=== PATIENT | female | born 1955 | race Caucasian/White ===

== ENCOUNTER 2019-10-26 13:26 | Outpatient (REF) | payer SELFPAY ==
[2019-10-26 15:37] LABS: Estmated Average Glucose 114; Hemoglobin A1C 5.6 % (4.0-6.0)
[2019-10-26 17:54] LABS: Chol HDL Ratio 4.34 mg/dL (0.0-4.40); Cholesterol 243 mg/dL (0-200); HDL Cholesterol 56 mg/dL (60-100); LDL Cholesterol Calculated 159 mg/dL (50-129); LDL HDL Ratio 2.84 RATIO (0.00-3.22); Triglycerides 138 mg/dL (0-150)
[2019-10-26 17:55] LABS: Alanine Aminotransferase 22 U/L (0-33); Albumin Level 3.7 g/dL (3.5-5.2); Alkaline Phosphatase 90 IU/L (35-105); Aspartate Amino Transferase 19 U/L (0-32); Blood Urea Nitrogen 16 mg/dL (8-23); Calcium 9.7 mg/dL (8.5-10.5); Carbon Dioxide 26 mmol/L (22-29); Chloride 101 mmol/L (98-107); Globulin 2.9 g/dL (1.3-4.6); Glomerular Filtration Rate 84.2 mL/min (90-130); Glucose 76 mg/dL (65-115); Sodium 139 mmol/L (136-145); Total Bilirubin 0.3 mg/dL (0.15-1.2); Total Protein 6.6 g/dL (6.6-8.7)
== END 2019-10-26 13:27 | disposition home or self-care (01) ==
LOC: LAB 13:26
PROVIDERS: Family Provider Nurse Practitioner; PCP Nurse Practitioner
DX: E78.5 Hyperlipidemia, unspecified (principal)
CPT/HCPCS: 80053; 80061; 83036

== ENCOUNTER → 2020-05-25 11:25 | Outpatient (BNVA) | payer SELFPAY | PROVIDERS: Family Provider Nurse Practitioner; PCP Nurse Practitioner; Visit Provider Nurse Practitioner | DX: E78.2 Mixed hyperlipidemia (principal); K21.9 Gastro-esophageal reflux disease without esophagitis; I10 Essential (primary) hypertension; N39.46 Mixed incontinence | CPT/HCPCS: 80053; 80061 ==

== ENCOUNTER → 2020-09-12 09:07 | Outpatient (BNVA) | payer SELFPAY | PROVIDERS: Family Provider Nurse Practitioner; PCP Nurse Practitioner; Visit Provider Nurse Practitioner | DX: F41.8 Other specified anxiety disorders (principal); I10 Essential (primary) hypertension; K21.9 Gastro-esophageal reflux disease without esophagitis; E78.2 Mixed hyperlipidemia | CPT/HCPCS: 80053; 84439; 84443; 84481 ==

== ENCOUNTER 2021-03-16 07:18 | Inpatient (IN) | payer MEDICARE, SELFPAY ==
[2021-03-16] VITALS (38 sets, daily range): BP systolic 85–132; BP diastolic 56–89; PULSE 85–144; RESP 13–28; TEMP 36.6–37.2; O2SAT 78–94; BMI 29.9
--- NOTE | 2021-03-16 07:27 | ED_ITS ---
HPI - COVID General: Chief Complaint: COVID symptoms Stated Complaint: COVID +; RESP DISTRESS Time Seen by Provider: 03/16/21 07:26 History of Present Illness: HPI Narrative: 66-year-old female presents emergency room short of breath. She tested positive for Covid 5 days ago at an outside facility. She had symptoms for 2 to 3 days prior to that. She presents today having worsened markedly overnight and now is severely short of breath on arrival in triage she has oxygen sats in the upper 70s on room air and is tachypneic. She has had a moderately productive cough and loose stools. She denies any chest pain. Unfortunately the outside facility is not able to provide us with documentation of her Covid positive status so testing was repeated at this visit. complaint: known COVID positive Prior covid testing: yes, results known COVID 19 common symptoms: positive fever(s), chills, cough, productive cough, dyspnea, fatigue, body aches, throat pain, nasal congestion, nausea and diarrhea COVID 19 other sytmptoms: positive requiring oxygen; negative chest pain Onset (ago): day(s) Severity: severe and rapidly worsening Treatment prior to arrival: none COVID Results: SARS-CoV-2 Antigen (Rapid) Negative (Negative) 03/16/21 08:35 03/16/21 SARS-CoV-2 RNA (RT-PCR) Detected (NOT DETECTED) A 03/16/21 08:35 03/16/21 Review of Systems Const: Reports: fever(s), chills, body aches and fatigue ENMT: Reports: throat pain and nasal congestion Card: Denies: chest pain, edema, dyspnea on exertion or orthopnea Resp: Reports: dyspnea and productive cough GI: Reports: nausea and diarrhea : Denies: flank pain, difficulty voiding, dysuria, urinary frequency or urinary urgency Skin/Breast: Denies: rash or pruritus PFS ED PFSH: Medical History (Updated 03/25/21 @ 00:01 by ) Acute respiratory failure with hypoxia ARDS survivor Enlarged thyroid GERD (gastroesophageal reflux disease) Iron deficiency Mixed hyperlipidemia Mixed stress and urge incontinence Obesity (BMI 30-39.9) Situational mixed anxiety and depressive disorder Surgical History History of section History of cholecystectomy History of endometrial ablation 2010 History of knee surgery bilateral scope History of laminectomy Lumbar Family History Other Cancer Heart disease Social History Smoking and tobacco status: never smoked Second hand smoke exposure: No Smoking risk assessment/counseling performed?: No Alcohol intake: never Desire information about alcohol rehabilitation?: No Counseling given: No Desire information about substance/drug rehabilitation?: No Counseling given: No Adopted: No Caregiver/support person: No Lives independently: Yes Household members: spouse Housing: House Marital status: service: No History of recent travel: No Current gender identity: Female Physical Exam Const: GENERAL APPEARANCE: cooperative ORIENTATION/CONSCIOUSNESS: Yes awake, Yes oriented to person, Yes oriented to place and Yes oriented to time HENMT: COMMON NORMALS: normocephalic, atraumatic, hearing grossly normal bilaterally and external ears normal HEAD & SCALP: normocephalic and atraumatic EXTERNAL EAR: Yes external ears normal Neck/C-Spine: COMMON NORMALS: no JVD Resp: AUSCULTATION: rales and wheezes Cardio: COMMON NORMALS: no JVD, regular rate, regular rhythm and No murmurs present (Cardio) RATE: regular rate RHYTHM: regular rhythm GI: COMMON NORMALS: Soft to palpation and No hepatosplenomegaly present AUSCULTATION: Yes normoactive bowel sounds PALPATION: Yes Soft to palpation, No Tenderness to palpation present (GI), No Guarding due to palpation present (GI) and Yes No hepatosplenomegaly present Extremity: COMMON NORMALS: normal to inspection, capillary refill normal, no clubbing, cyanosis or edema, no calf tenderness and no pedal edema Neuro: SENSORIUM/ORIENTATION: Yes oriented to person, Yes oriented to place and Yes oriented to time Skin: COMMON NORMALS: no rashes or lesions noted GENERAL SKIN EXAM: no rashes or lesions noted Course Vital Signs: Vital signs: Vital Signs Temperature 98.5 F 03/24/21 13:32 Pulse Rate 77 03/24/21 13:32 Respiratory Rate 14 03/24/21 13:32 Blood Pressure 116/77 03/24/21 13:32 Pulse Oximetry 93 03/24/21 13:32 MDM - COVID MDM Narrative: Medical decision making narrative: I do believe the patient has COVID-19 will need to be admitted. Unfortunately we do not have an actual positive test for rapid was negative as would be expected her send out is going to be pending discussed with hospitalist will admit. Lab Data: Labs: Lab Results 03/16/21 03/16/21 03/16/21 Range/Units 07:29 07:30 07:30 WBC 4.7 (4.0-10.0) 10^3/ uL RBC 4.32 (4.1-5.3) 10^6/u L Hgb 13.2 (11.5-15.3) g/dL Hct 38.3 (37.0-47.0) % MCV 88.7 (81-99) fL MCH 30.6 (28.0-34.0) pg MCHC 34.5 (30.0-36.0) g/dL RDW 12.9 (12.1-15.1) % Plt Count 253 (130-400) 10^3/c mm MPV 11.2 H (7.4-10.4) fL Lymph % (Auto) Not Reportable Crisp % (Auto) Not Reportable Lymph # (Auto) Not Reportable Crisp # (Auto) Not Reportable Total Counted 100 (0-100) Atypical Lymphs % 0.0 (0-5) % Absolute Neutrophi ls 3.9 (1.4-6.5) 10^3/c mm Segmented Neutroph ils 32 % Abs Segm Neuts (Ma n) 1.5 L (1.6-7.1) 10/cmm Band Neutrophils 50.0 % Abs Band Neuts (Ma n) 2.4 H (0.0-1.2) 10^3/c mm Absolute Lymphocyt es 0.7 L (1.2-3.4) 10^3/c mm Lymphocytes (Manua l) 15 % Monocytes (Manual) 3.0 % Absolute Monocytes 0.1 (0.1-0.6) 10^3/c mm Eosinophils (Manua l) 0 % Absolute Eosinophi ls 0.0 (0.0-0.7) 10^3/c mm Basophils (Manual) 0.0 % Absolute Basophils 0.0 (0.0-0.2) 10^3/c mm Platelet Estimate Normal (Normal) PT (12.1-14.9) SECO NDS INR (0.8-1.2) D-Dimer (0-0.59) ug/mIFE U Specimen Type Arterial Sample Site Radial, left ABG pH 7.39 (7.35-7.45) ABG pCO2 28.9 L (35-45) mmHg ABG pO2 62.9 L (80.0-100.0) mmH g ABG HCO3 17.4 L (22-26) mmol/L ABG O2 Saturation 91.3 ABG Base Excess -6.3 L (-2.0-2.0) mmol/ L Gurjit Test Pos A-a O2 Gradient 79.1 H (5-10) mmHg Hematocrit 41.4 (37-47) % Hgb O2 Saturation 90.0 L (95-100) % Carboxyhemoglobin 0.6 (0.4-20.1) %THgb Methemoglobin 0.8 (0.4-1.5) % Total Hemoglobin 13.5 (12-16) g/dL Sodium 128.0 L 128 L (131-143) mmol/L Potassium 3.5 3.7 (3.5-5.0) mmol/L Glucose 84.0 79 (70-115) mg/dL Ionized Calcium 1.1 (1.1-1.4) mmol/L O2 Delivery Device Nrb O2 Liters/Min 15.0 % FiO2 100.0 % Operations Lieutenant ID Ed Chloride 89 L (98-107) mmol/L Carbon Dioxide 17 L (22-29) mmol/L Anion Gap 25.7 H (5-19) BUN 33 H (8-23) mg/dL Creatinine 1.5 H (0.5-0.9) mg/dL GFR Calculation 34.7 L (90-130) mL/min Calculated Osmolal ity 272 L (285-295) mOsm/k g Lactic Acid (0.5-2.2) mmol/L Calcium 8.2 L (8.5-10.5) mg/dL Total Bilirubin 0.5 (0.15-1.2) mg/dL AST 39 H (0-32) U/L ALT 34 H (0-33) U/L Alkaline Phosphata se 110 H (35-105) IU/L Lactate Dehydrogen ase (135-214) U/L Creatine Kinase (26-192) U/L C-Reactive Protein 350.0 H (0.0-4.9) mg/L Total Protein 6.6 (6.6-8.7) g/dL Albumin 3.1 L (3.5-5.2) g/dL Globulin 3.5 (1.3-4.6) g/dL Interleukin 6 (<5.00) pg/mL Procalcitonin (0-0.5) ng/mL Nasal/Oral COVID-1 9 PCR SARS-CoV-2 RNA (RT -PCR) (NOT DETECTED) SARS-CoV-2 Ag (Rap id) (Negative) 03/16/21 03/16/21 03/16/21 Range/Units 07:30 07:30 07:30 WBC (4.0-10.0) 10^3/ uL RBC (4.1-5.3) 10^6/u L Hgb (11.5-15.3) g/dL Hct (37.0-47.0) % MCV (81-99) fL MCH (28.0-34.0) pg MCHC (30.0-36.0) g/dL RDW (12.1-15.1) % Plt Count (130-400) 10^3/c mm MPV (7.4-10.4) fL Lymph % (Auto) Crisp % (Auto) Lymph # (Auto) Crisp # (Auto) Total Counted (0-100) Atypical Lymphs % (0-5) % Absolute Neutrophi ls (1.4-6.5) 10^3/c mm Segmented Neutroph ils % Abs Segm Neuts (Ma n) (1.6-7.1) 10/cmm Band Neutrophils % Abs Band Neuts (Ma n) (0.0-1.2) 10^3/c mm Absolute Lymphocyt es (1.2-3.4) 10^3/c mm Lymphocytes (Manua l) % Monocytes (Manual) % Absolute Monocytes (0.1-0.6) 10^3/c mm Eosinophils (Manua l) % Absolute Eosinophi ls (0.0-0.7) 10^3/c mm Basophils (Manual) % Absolute Basophils (0.0-0.2) 10^3/c mm Platelet Estimate (Normal) PT (12.1-14.9) SECO NDS INR (0.8-1.2) D-Dimer (0-0.59) ug/mIFE U Specimen Type Sample Site ABG pH (7.35-7.45) ABG pCO2 (35-45) mmHg ABG pO2 (80.0-100.0) mmH g ABG HCO3 (22-26) mmol/L ABG O2 Saturation ABG Base Excess (-2.0-2.0) mmol/ L Gurjit Test A-a O2 Gradient (5-10) mmHg Hematocrit (37-47) % Hgb O2 Saturation (95-100) % Carboxyhemoglobin (0.4-20.1) %THgb Methemoglobin (0.4-1.5) % Total Hemoglobin (12-16) g/dL Sodium (131-143) mmol/L Potassium (3.5-5.0) mmol/L Glucose (70-115) mg/dL Ionized Calcium (1.1-1.4) mmol/L O2 Delivery Device O2 Liters/Min % FiO2 % Operations Lieutenant ID Chloride (98-107) mmol/L Carbon Dioxide (22-29) mmol/L Anion Gap (5-19) BUN (8-23) mg/dL Creatinine (0.5-0.9) mg/dL GFR Calculation (90-130) mL/min Calculated Osmolal ity (285-295) mOsm/k g Lactic Acid 3.4 H (0.5-2.2) mmol/L Calcium (8.5-10.5) mg/dL Total Bilirubin (0.15-1.2) mg/dL AST (0-32) U/L ALT (0-33) U/L Alkaline Phosphata se (35-105) IU/L Lactate Dehydrogen ase 351 H (135-214) U/L Creatine Kinase 176 (26-192) U/L C-Reactive Protein (0.0-4.9) mg/L Total Protein (6.6-8.7) g/dL Albumin (3.5-5.2) g/dL Globulin (1.3-4.6) g/dL Interleukin 6 74960.50 H (<5.00) pg/mL Procalcitonin (0-0.5) ng/mL Nasal/Oral COVID-1 9 PCR SARS-CoV-2 RNA (RT -PCR) (NOT DETECTED) SARS-CoV-2 Ag (Rap id) (Negative) 03/16/21 03/16/21 03/16/21 Range/Units 07:30 08:07 08:35 WBC (4.0-10.0) 10^3/ uL RBC (4.1-5.3) 10^6/u L Hgb (11.5-15.3) g/dL Hct (37.0-47.0) % MCV (81-99) fL MCH (28.0-34.0) pg MCHC (30.0-36.0) g/dL RDW (12.1-15.1) % Plt Count (130-400) 10^3/c mm MPV (7.4-10.4) fL Lymph % (Auto) Crisp % (Auto) Lymph # (Auto) Crisp # (Auto) Total Counted (0-100) Atypical Lymphs % (0-5) % Absolute Neutrophi ls (1.4-6.5) 10^3/c mm Segmented Neutroph ils % Abs Segm Neuts (Ma n) (1.6-7.1) 10/cmm Band Neutrophils % Abs Band Neuts (Ma n) (0.0-1.2) 10^3/c mm Absolute Lymphocyt es (1.2-3.4) 10^3/c mm Lymphocytes (Manua l) % Monocytes (Manual) % Absolute Monocytes (0.1-0.6) 10^3/c mm Eosinophils (Manua l) % Absolute Eosinophi ls (0.0-0.7) 10^3/c mm Basophils (Manual) % Absolute Basophils (0.0-0.2) 10^3/c mm Platelet Estimate (Normal) PT 14.40 (12.1-14.9) SECO NDS INR 1.09 (0.8-1.2) D-Dimer 1.71 H (0-0.59) ug/mIFE U Specimen Type Sample Site ABG pH (7.35-7.45) ABG pCO2 (35-45) mmHg ABG pO2 (80.0-100.0) mmH g ABG HCO3 (22-26) mmol/L ABG O2 Saturation ABG Base Excess (-2.0-2.0) mmol/ L Gurjit Test A-a O2 Gradient (5-10) mmHg Hematocrit (37-47) % Hgb O2 Saturation (95-100) % Carboxyhemoglobin (0.4-20.1) %THgb Methemoglobin (0.4-1.5) % Total Hemoglobin (12-16) g/dL Sodium (131-143) mmol/L Potassium (3.5-5.0) mmol/L Glucose (70-115) mg/dL Ionized Calcium (1.1-1.4) mmol/L O2 Delivery Device O2 Liters/Min % FiO2 % Operations Lieutenant ID Chloride (98-107) mmol/L Carbon Dioxide (22-29) mmol/L Anion Gap (5-19) BUN (8-23) mg/dL Creatinine (0.5-0.9) mg/dL GFR Calculation (90-130) mL/min Calculated Osmolal ity (285-295) mOsm/k g Lactic Acid (0.5-2.2) mmol/L Calcium (8.5-10.5) mg/dL Total Bilirubin (0.15-1.2) mg/dL AST (0-32) U/L ALT (0-33) U/L Alkaline Phosphata se (35-105) IU/L Lactate Dehydrogen ase (135-214) U/L Creatine Kinase (26-192) U/L C-Reactive Protein (0.0-4.9) mg/L Total Protein (6.6-8.7) g/dL Albumin (3.5-5.2) g/dL Globulin (1.3-4.6) g/dL Interleukin 6 (<5.00) pg/mL Procalcitonin > 100.00 H (0-0.5) ng/mL Nasal/Oral COVID-1 9 PCR Cancelled SARS-CoV-2 RNA (RT -PCR) (NOT DETECTED) SARS-CoV-2 Ag (Rap id) (Negative) 03/16/21 03/16/21 Range/Units 08:35 08:35 WBC (4.0-10.0) 10^3/ uL RBC (4.1-5.3) 10^6/u L Hgb (11.5-15.3) g/dL Hct (37.0-47.0) % MCV (81-99) fL MCH (28.0-34.0) pg MCHC (30.0-36.0) g/dL RDW (12.1-15.1) % Plt Count (130-400) 10^3/c mm MPV (7.4-10.4) fL Lymph % (Auto) Crisp % (Auto) Lymph # (Auto) Crisp # (Auto) Total Counted (0-100) Atypical Lymphs % (0-5) % Absolute Neutrophi ls (1.4-6.5) 10^3/c mm Segmented Neutroph ils % Abs Segm Neuts (Ma n) (1.6-7.1) 10/cmm Band Neutrophils % Abs Band Neuts (Ma n) (0.0-1.2) 10^3/c mm Absolute Lymphocyt es (1.2-3.4) 10^3/c mm Lymphocytes (Manua l) % Monocytes (Manual) % Absolute Monocytes (0.1-0.6) 10^3/c mm Eosinophils (Manua l) % Absolute Eosinophi ls (0.0-0.7) 10^3/c mm Basophils (Manual) % Absolute Basophils (0.0-0.2) 10^3/c mm Platelet Estimate (Normal) PT (12.1-14.9) SECO NDS INR (0.8-1.2) D-Dimer (0-0.59) ug/mIFE U Specimen Type Sample Site ABG pH (7.35-7.45) ABG pCO2 (35-45) mmHg ABG pO2 (80.0-100.0) mmH g ABG HCO3 (22-26) mmol/L ABG O2 Saturation ABG Base Excess (-2.0-2.0) mmol/ L Gurjit Test A-a O2 Gradient (5-10) mmHg Hematocrit (37-47) % Hgb O2 Saturation (95-100) % Carboxyhemoglobin (0.4-20.1) %THgb Methemoglobin (0.4-1.5) % Total Hemoglobin (12-16) g/dL Sodium (131-143) mmol/L Potassium (3.5-5.0) mmol/L Glucose (70-115) mg/dL Ionized Calcium (1.1-1.4) mmol/L O2 Delivery Device O2 Liters/Min % FiO2 % Operations Lieutenant ID Chloride (98-107) mmol/L Carbon Dioxide (22-29) mmol/L Anion Gap (5-19) BUN (8-23) mg/dL Creatinine (0.5-0.9) mg/dL GFR Calculation (90-130) mL/min Calculated Osmolal ity (285-295) mOsm/k g Lactic Acid (0.5-2.2) mmol/L Calcium (8.5-10.5) mg/dL Total Bilirubin (0.15-1.2) mg/dL AST (0-32) U/L ALT (0-33) U/L Alkaline Phosphata se (35-105) IU/L Lactate Dehydrogen ase (135-214) U/L Creatine Kinase (26-192) U/L C-Reactive Protein (0.0-4.9) mg/L Total Protein (6.6-8.7) g/dL Albumin (3.5-5.2) g/dL Globulin (1.3-4.6) g/dL Interleukin 6 (<5.00) pg/mL Procalcitonin (0-0.5) ng/mL Nasal/Oral COVID-1 9 PCR SARS-CoV-2 RNA (RT -PCR) Detected A (NOT DETECTED) SARS-CoV-2 Ag (Rap id) Negative (Negative) COVID Results: SARS-CoV-2 Antigen (Rapid) Negative (Negative) 03/16/21 08:35 03/16/21 SARS-CoV-2 RNA (RT-PCR) Detected (NOT DETECTED) A 03/16/21 08:35 03/16/21 Discharge Plan Discharge Patient Disposition: Admitted As Inpatient Admit Provider: Justin Christopher Clinical Impression: Pneumonia due to 2019-nCoV, Acute respiratory failure with hypoxia, Hyponatremia Condition: Stable Coding Level of Care Code ED Mechanic for g Fwd Exam Comprehensive
[2021-03-16] MEDS: dexamethasone 10 mg/mL INJ IVP (07:30)
--- NOTE | 2021-03-16 07:30 | XRR_ITS ---
PROCEDURE INFORMATION: Exam: XR Chest Exam date and time: 03/16/2021 7:30 AM Age: 66 years old Clinical indication: Cough; Additional info: Cough hypoxia TECHNIQUE: Imaging protocol: XR of the chest. Views: 1 view. COMPARISON: CR Chest 2 views* [id number] 04/04/2015 2:01 PM FINDINGS: Lungs: Extensive patchy and confluent areas of consolidation throughout both lungs, greatest involvement at the mid lungs. Relative sparing of the apices and lung bases. Pleural spaces: No pleural effusion or pneumothorax. Heart/Mediastinum: Unremarkable. No cardiomegaly. Bones/joints: Unremarkable. XR/XR chest 1V portable [id number] IMPRESSION: Severe bilateral multifocal pneumonia.
--- NOTE | 2021-03-16 07:31 | ECG_ITS ---
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 Measurements Intervals Roulette Rate: 82 P: 62 MA: 138 QRS: 17 QRSD: 97 T: 47 QT: 385 QTc: 452 Interpretive Statements SINUS RHYTHM No previous ECG available for comparison Electronically Signed On 03-17-2021 9:37:51 CDT by Chauncey Emery M.D. [email or web address]
[2021-03-16 07:39] LABS: ABG PCO2 28.9 mmHg (35-45); ABG PH Result 7.39 (7.35-7.45); Arterial Blood Gas Hematocrit 41.4 % (37-47); Base Excess ABG -6.3 mmol/L (-2.0-2.0); Blood Gas Allen Test Pos; Blood Gas Sample Type Arterial; Carboxyhemoglobin 0.6 %THgb (0.4-20.1); HCO3 ABG 17.4 mmol/L (22-26); Ionized Calcium Level - ABG 1.1 mmol/L (1.1-1.4); Methemoglobin 0.8 % (0.4-1.5); Oxygen Saturation ABG 91.3; PO2 ABG 62.9 mmHg (80.0-100.0); Potassium Level - ABG 3.5 mmol/L (3.5-5.0); Total Hemoglobin 13.5 g/dL (12-16)
[2021-03-16 07:40] LABS: Alveolar-Arterial Oxygen Gradi 79.1 mmHg (5-10); Blood Gas Operator Identificat ED; Blood Gas Sample Site Radial, left; Oxygen Device NRB
--- NOTE | 2021-03-16 07:57 | CTR_ITS ---
PROCEDURE INFORMATION: Exam: CTA Chest With Contrast Exam date and time: 03/16/2021 7:57 AM Age: 66 years old Clinical indication: Cough and shortness of breath; Additional info: Covid TECHNIQUE: Imaging protocol: Computed tomographic angiography of the chest with contrast. 3D rendering (Not supervised by radiologist): MIP and/or 3D reconstructed images were created by the technologist. Radiation optimization: All CT scans at this facility use at least one of these dose optimization techniques: automated exposure control; mA and/or kV adjustment per patient size (includes targeted exams where dose is matched to clinical indication); or iterative reconstruction. Contrast material: VISIPAQUE 320; Contrast volume: 78 ml; Contrast route: INTRAVENOUS (IV); COMPARISON: CR XR chest 1V portable [id number] 03/16/2021 7:37 AM RADIATION DOSE METRICS: Total DLP (mGy-cm): 545.65 FINDINGS: Pulmonary arteries: No evidence of pulmonary embolism. Aorta: No aortic aneurysm or dissection. Lungs: Extensive confluent consolidation throughout the bilateral lungs, with some relative sparing of the lung bases and periphery. Central airways normal caliber and patent. Pleural spaces: No pleural effusion or pneumothorax. Heart: Unremarkable. No cardiomegaly. No pericardial effusion. Lymph nodes: Scattered enlarged mediastinal nodes measuring up to 14 mm in short axis, likely reactive. Bones/joints: No acute or aggressive osseous lesion. Soft tissues: Unremarkable. Other findings: No acute findings within the included upper abdomen. CT/CT angio chest PE protcl [id number] IMPRESSION: 1. No evidence of pulmonary embolism. 2. Severe multifocal pneumonia. Radiation Dose CTDIVOL = (mGy): DLP = 545.65 (mGy-cm)
[2021-03-16 07:58] LABS: Hematocrit 38.3 % (37.0-47.0); Hemoglobin 13.2 g/dL (11.5-15.3); Mean Corpuscular HGB Conc 34.5 g/dL (30.0-36.0); Mean Corpuscular Hemoglobin 30.6 pg (28.0-34.0); Mean Corpuscular Volume 88.7 fL (81-99); Mean Platelet Volume 11.2 fL (7.4-10.4); Platelet Count 253 10^3/cmm (130-400); Red Blood Count 4.32 10^6/uL (4.1-5.3); Red Cell Distribution Width 12.9 % (12.1-15.1); White Blood Count 4.7 10^3/uL (4.0-10.0)
[2021-03-16] MEDS: remdesivir 200 MG in sodium chloride 0.9% (100 ml) 100 ML 100 MG IV (07:58)
[2021-03-16 08:13] LABS: Alanine Aminotransferase 34 U/L (0-33); Albumin Level 3.1 g/dL (3.5-5.2); Alkaline Phosphatase 110 IU/L (35-105); Anion Gap 25.7 (5-19); Aspartate Amino Transferase 39 U/L (0-32); Blood Urea Nitrogen 33 mg/dL (8-23); Calcium 8.2 mg/dL (8.5-10.5); Carbon Dioxide 17 mmol/L (22-29); Chloride 89 mmol/L (98-107); Globulin 3.5 g/dL (1.3-4.6); Glomerular Filtration Rate 34.7 mL/min (90-130); Glucose 79 mg/dL (65-115); Lactic Sepsis W/Reflex 3.4 mmol/L (0.5-2.2); Osmolality Calculated 272 mOsm/kg (285-295); Potassium 3.7 mmol/L (3.5-5.1); Sodium 128 mmol/L (136-145); Total Bilirubin 0.5 mg/dL (0.15-1.2); Total Protein 6.6 g/dL (6.6-8.7)
[2021-03-16 08:16] LABS: Slide Review Slide Review Perform
[2021-03-16 08:22] LABS: Absolute Segmented Neutrophil 1.5 10/cmm (1.6-7.1); Band Neutrophils Absolute 2.4 10^3/cmm (0.0-1.2); Lymphocytes 15 %; Monocytes Absolute 0.1 10^3/cmm (0.1-0.6); Segmented Neutrophils 32 %; Total Cells Counted 100 (0-100)
[2021-03-16 08:23] LABS: Absolute Neutrophil 3.9 10^3/cmm (1.4-6.5); Eosinophils 0 %; Lymphocytes Absolute 0.7 10^3/cmm (1.2-3.4); Platelet Estimate Normal (Normal)
[2021-03-16 08:28] LABS: Creatine Phosphokinase 176 U/L (26-192); Lactate Dehydrogenase 351 U/L (135-214)
[2021-03-16 08:31] LABS: INR 1.09 (0.8-1.2)
[2021-03-16 08:34] LABS: D Dimer 1.71 ug/mIFEU (0-0.59)
[2021-03-16] MEDS: sodium chloride 0.9% 500 ML 999 ML IV (08:36)
[2021-03-16 09:14] LABS: SARS Covid-2 Antigen Negative (Negative)
[2021-03-16] MEDS: levofloxacin-dextrose 5 % 750 MG/150 ML PREMIX 100 MG IV (09:27)
[2021-03-16 09:32] LABS: Reflex Lactate Order REFLEX LACTIC ORDERD
[2021-03-16] MEDS: iodixanol 320 mg/mL 100mL Btl IV (10:10)
[2021-03-16 11:46] LABS: Lactic Acid level (Lactate) 2.7 mmol/L (0.5-2.2)
--- NOTE | 2021-03-16 12:08 | PM.HP ---
Providers/Chief Complaint Admitting Physician: Justin Christopher Primary Care Provider: ROBE Bailey Chief Complaint: COVID +; RESP DISTRESS History of Present Illness 66-year-old female with a past medical history significant for anxiety, depression,gastroesophageal reflux disease, mixed urinary incontinence,Hypertension, hyperlipidemia, remote tobacco abuse and recent diagnosis of COVID-19 infection who presented to the hospital with respiratory distress.Apparently patient had a COVID-19 test performed 5 days prior at an outside facility which positive.Additional symptoms included fever, chills, nausea and productive. Upon arrival to ER she was noted to have oxygen saturation 70s.Blood pressure 100/61, respiratory rate of 26, heart rate of 89 and temperature 99.0. Laboratory workup showed a WBC of 4.7, hemoglobin 13.2, hematocrit 38.3 and platelet count of 253. Sodium 128, potassium 3.7, chloride 89, bicarb 17, BUN 33 and creatinine of 1.5. Prior creatinine of 0.9 in 2019. Initial lactic acid of 3.4 with a repeat of 2.7. AST of 39, ALT of 34 and alkaline phosphatase of 110. Creatinine kinase of 176. Interleukin 6 in procalcitonin was ordered and pending. Repeat start spoke with a decision was negative however a PCR was sent.Chest x-ray was performed which showed multifocal pneumonia which was also noted on CT angio chest. No evidence of pulmonary embolism. Scattered enlarged mediastinal lymph nodes measuring up to 14 mm were noted. Patient was placed on high-flow nasal cannula.Oxygen saturation improved. In ER she was also started on Remdesivir 200 mg IV x1 with 100mg IV q24hr x 4 days, decadron 10 mg x1, and levaquin 750 mg IV x 1. Patient also was given NS 1L bolus. Review of Systems General: Reports: 10 or more systems reviewed and unremarkable except in HPI and below Medications/Allergies Home Medications Medication Instructions Recorded Confirmed Last Taken Type acetaminophen [Tylenol] 325 mg PO Q6H PRN 11/08/19 03/16/21 Unknown History ibuprofen [IBU] 200 mg PO Q6H PRN 11/08/19 03/16/21 Unknown History atorvastatin 40 mg tablet 40 mg PO DAILY #90 tab 12/27/20 03/16/21 03/15/21 Rx pantoprazole 40 mg tablet,delayed 40 mg PO DAILY #90 tab 12/27/20 03/16/21 03/15/21 Rx release propranolol 20 mg tablet 20 mg PO BID #180 tab 12/27/20 03/16/21 03/15/21 Rx solifenacin 10 mg tablet 10 mg PO DAILY #90 tab 02/20/21 03/16/21 03/15/21 Rx Allergies Allergy/AdvReac Type Severity Reaction Status Date / Time No Known Allergies Allergy Verified 02/22/21 12:52 PFSH Acute PFSH: Medical History Enlarged thyroid GERD (gastroesophageal reflux disease) Mixed hyperlipidemia Mixed stress and urge incontinence Obesity (BMI 30-39.9) Situational mixed anxiety and depressive disorder Surgical History History of section History of cholecystectomy History of endometrial ablation 2009 History of knee surgery bilateral scope History of laminectomy Lumbar Family History Other Cancer Heart disease Social History Smoking and tobacco status: never smoked Second hand smoke exposure: No Smoking risk assessment/counseling performed?: No Alcohol intake: never Desire information about alcohol rehabilitation?: No Counseling given: No Desire information about substance/drug rehabilitation?: No Counseling given: No Adopted: No Caregiver/support person: No Lives independently: Yes Household members: spouse Housing: House Marital status: service: No History of recent travel: No Current gender identity: Female Vitals/I&O/Wt Last Vital Signs Temp 99.0 F 03/16/21 11:30 Pulse 88 03/16/21 14:47 Resp 19 H 03/16/21 14:47 BP 102/76 03/16/21 14:15 Pulse Ox 91 03/16/21 14:47 03/16/21 03/16/21 03/16/21 06:59 14:59 22:59 Intake Total 600 / 600 Balance 600 / 600 Weight last 48 hrs Weight 81.647 kg Physical Exam Narrative: EXAM NARRATIVE: General : Alert, awake, oriented x 3 HEENT: Grossly unremarkable Chest: Non-labored respiration on HFNC CVS; NSR ABD: Non-distended Ext: No edema Data : 03/16/21 07:30 03/16/21 07:30 Micro: Microbiology 03/16/21 07:30 Blood Culture - Preliminary Blood SPECIMEN COLLECTED 03/16/21 07:30 Blood Culture - Preliminary Blood SPECIMEN COLLECTED A&P Assessment and plan (1) Pneumonia due to 2019-nCoV: Status: Acute (2) Acute respiratory failure with hypoxia: Status: Acute (3) Hyponatremia: Status: Acute (4) Mixed hyperlipidemia: Status: Chronic (5) GERD (gastroesophageal reflux disease): Status: Chronic Acute respiratory distress hypoxemia due to COVID-19 pneumonia Noted to have positive covid-19 5 days prior Repeat COVID-19 PCR sent Continue HFNC - wean as tolerated DuoNeb q6hr Remdesivir 200mg IV x 1 -> 100 mg IV q24hr x 4 Decadron 6 mg daily - total 10 day course Can not entirely rule out superimposed bacterial infection Will cover with Zosyn 3.375g IV q8hr Sputum culture D-dimer elevated - CTA Chest - no PE Ferritin, CRP, Lactic acid in am Acute Renal Failure Creatinine 1.5 S/p 1L bolus in ER Decrease NS to 50cc/hr Monitor u/o Renal dosing of meds Hyponatremia UA NA,OSM,Cr now Check UA Repeat BMP in am Hypertension BP soft - hold propranolol 20 mg PO BID Dyslipidemia Lipitor 40 mg PO daily Hold if worsening LFTs CMP in am GERD Protonix 40 mg PO daily DVT ppx Heparin 5000 units q8hr Attestations Medical Necessity Statement*: Patient will require over 2 midnight stay in hospital for eval and treatment of covid-19 related pneumonia with hypoxia req HFNC Time Spent in Patient Care: Greater than 35 minutes (>than 50% of time spent in counselling and/or direct pt care on unit). 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
[2021-03-16] MEDS: sodium chloride 0.9% 1,000 ML 100 ML IV (15:25)
[2021-03-16] MEDS: HYDROcodone-acetaminophen 5-325 mg Tablet 1 TAB PO (16:35)
[2021-03-16] MEDS: sodium chloride 0.9% 1,000 ML 50 ML IV (16:36)
[2021-03-16] MEDS: piperacillin-tazobactam 3.375 GM in sodium chloride 0.9% (plus) 50 ML IV (16:36)
[2021-03-16] MEDS: heparin 5,000 unit/mL INJ 1 mL 5000 UNIT SUBCUT (16:36)
--- NOTE | 2021-03-16 17:04 | PC.NURSE ---
Pt gets short of breath and sats drop to 85-86% when getting up to the bedside commode. She is strong muscularly but very weak respiratory.
[2021-03-16 17:21] LABS: Urine Appearance Clear (CLEAR); Urine Color Yellow (Yellow); pH Urine 5 (5-7)
[2021-03-16 17:22] LABS: Add Urine Culture? No; Add Urine Microscopic? YES; Bacteria Urine TRACE /hpf; Bilirubin Urine Neg (Negative); Blood Urine Trace (Negative); Glucose Urine UA Norm (Normal); Ketones Urine Negative (Negative); Leukocyte Esterase Urine Negative (Negative); Nitrate Urine Negative (Negative); Protein Urine Neg (Negative); RBC Urine RARE /hpf (0-2); Squamous Epithelial Cell Urine RARE /hpf (0-5); Urobilinogen Urine Norm (Negative); WBC Urine 0-4 /hpf (0-5)
[2021-03-16 17:31] LABS: Urine Creatinine 22 mg/dL (28-217); Urine Random Sodium 22 mmol/L
--- NOTE | 2021-03-16 18:43 | PC.NURSE ---
Pt sitting up at bedside eating her dinner. states she breathes better sitting on the edge of the bed. Stays between 87-89% with activity, takes a minute to recover to 92%. All needs met at this time.
[2021-03-16 18:52] LABS: Procalcitonin > 100.00 ng/mL (0-0.5)
[2021-03-16] MEDS: labetalol 5 mg/mL SDV 20mL 10 MG IVP (19:50)
--- NOTE | 2021-03-16 22:00 | PC.NURSE ---
19:30- Pt's heart rate increased up into the 160s. Off going nurse stated that the pt was in SR all day. Obtained an EKG which showed A-Fib RVR with a HR of 144. Pt stated she has never been in a-fib prior to this episode. Notified Dr. York. New order for labetalol 10mg IVP x's 1. 19:50. Pt did not respond to the labetolol IVP and continues to be in A-fib RVR with heart rates ranging between 140s-160s. Notified Dr. York. New order for Amio gtt with initial bolus.
[2021-03-16] MEDS: diphenhydrAMINE 25 mg Capsule PO (22:58)
[2021-03-16] MEDS: acetaminophen 325 mg Tablet 650 MG PO (22:58)
[2021-03-17] VITALS (42 sets, daily range): BP systolic 91–155; BP diastolic 53–112; PULSE 68–147; RESP 20–45; TEMP 36.7–36.8; O2SAT 87–96; BMI 32.6
[2021-03-17] MEDS: heparin 5,000 unit/mL INJ 1 mL 5000 UNIT SUBCUT ×2 (00:15→08:04)
[2021-03-17] MEDS: piperacillin-tazobactam 3.375 GM in sodium chloride 0.9% (plus) 50 ML IV ×4 (00:15→23:21)
[2021-03-17] MEDS: zolpidem 5 mg Tablet 10 MG PO (01:30)
[2021-03-17] MEDS: ipratropium-albuterol 3 mL Neb INHALATION ×4 (03:02→20:30)
[2021-03-17 04:22] LABS: Basophils % 0.1 %; Eosinophils % 0.1 %; Hematocrit 37.3 % (37.0-47.0); Hemoglobin 12.6 g/dL (11.5-15.3); Lymphocytes # 0.9 10^3/uL (0.8-4.8); Lymphocytes % 6.3 %; Mean Corpuscular HGB Conc 33.8 g/dL (30.0-36.0); Mean Corpuscular Hemoglobin 30.1 pg (28.0-34.0); Mean Corpuscular Volume 89.2 fL (81-99); Mean Platelet Volume 11.1 fL (7.4-10.4); Monocytes # 0.4 10^3/uL (0.2-0.9); Monocytes % 2.6 %; Neutrophils # 12.22 10^3/uL (1.8-7.7); Neutrophils % 89.9 %; Nucleated Red Blood Cells % 0 %; Platelet Count 305 10^3/cmm (130-400); Red Blood Count 4.18 10^6/uL (4.1-5.3); Red Cell Distribution Width 13.2 % (12.1-15.1); White Blood Count 13.6 10^3/uL (4.0-10.0)
[2021-03-17 04:50] LABS: Alanine Aminotransferase 37 U/L (0-33); Albumin Level 2.5 g/dL (3.5-5.2); Alkaline Phosphatase 114 IU/L (35-105); Anion Gap 18.4 (5-19); Aspartate Amino Transferase 56 U/L (0-32); Blood Urea Nitrogen 28 mg/dL (8-23); Carbon Dioxide 19 mmol/L (22-29); Chloride 103 mmol/L (98-107); Globulin 3.7 g/dL (1.3-4.6); Glomerular Filtration Rate 62.6 mL/min (90-130); Glucose 116 mg/dL (65-115); Lactate Dehydrogenase 340 U/L (135-214); NT Pro B Type Natriuretic Pept 3482 pg/mL (0-125); Osmolality Calculated 290 mOsm/kg (285-295); Potassium 3.4 mmol/L (3.5-5.1); Sodium 137 mmol/L (136-145); Total Bilirubin 0.4 mg/dL (0.15-1.2); Total Protein 6.2 g/dL (6.6-8.7)
[2021-03-17 05:05] LABS: Slide Review Slide Review Perform
[2021-03-17 05:08] LABS: Lactate (Lactic Acid level) 1.9 mmol/L (0.5-2.2)
[2021-03-17] MEDS: remdesivir 100 MG in sodium chloride 0.9% (100 ml) 100 ML IV (05:29)
--- NOTE | 2021-03-17 06:01 | ECG_ITS ---
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 Measurements Intervals [place] Rate: 147 P: FL: QRS: 40 QRSD: 92 T: 213 QT: 257 QTc: 402 Interpretive Statements ATRIAL FIBRILLATION WITH RAPID VENTRICULAR RESPONSE ST DEVIATION AND MODERATE T-WAVE ABNORMALITY, CONSIDER LATERAL ISCHEMIA [-0.1+ mV T WAVE IN I/aVL/V5/V6] Compared to ECG 03/16/2021 08:00:10 T-wave abnormality now present Possible ischemia now present Sinus rhythm no longer present Electronically Signed On 03-17-2021 9:45:09 CDT by Chauncey Emery M.D. [id number]
[2021-03-17 06:30] LABS: Ferritin 1386 ng/mL (15-150)
[2021-03-17] MEDS: dexamethasone 4 mg/mL INJ 6 MG IVP (08:04)
[2021-03-17] MEDS: pantoprazole DR 40 mg Tablet PO (08:07)
[2021-03-17] MEDS: FUROsemide 10 mg/mL SDV 2mL 20 MG IVP (08:39)
--- NOTE | 2021-03-17 14:09 | PM.PN ---
Subjective Subjective: Interval history: 66-year-old female with a past medical history significant for anxiety, depression,gastroesophageal reflux disease, mixed urinary incontinence,Hypertension, hyperlipidemia, remote tobacco abuse and recent diagnosis of COVID-19 infection who presented to the hospital with respiratory distress.Apparently patient had a COVID-19 test performed 5 days prior at an outside facility which positive.Additional symptoms included fever, chills, nausea and productive. Upon arrival to ER she was noted to have oxygen saturation 70s.Blood pressure 100/61, respiratory rate of 26, heart rate of 89 and temperature 99.0. Laboratory workup showed a WBC of 4.7, hemoglobin 13.2, hematocrit 38.3 and platelet count of 253. Sodium 128, potassium 3.7, chloride 89, bicarb 17, BUN 33 and creatinine of 1.5. Prior creatinine of 0.9 in 2019. Initial lactic acid of 3.4 with a repeat of 2.7. AST of 39, ALT of 34 and alkaline phosphatase of 110. Creatinine kinase of 176. Repeat start spoke with a decision was negative however a PCR was sent.Chest x-ray was performed which showed multifocal pneumonia which was also noted on CT angio chest. No evidence of pulmonary embolism. Scattered enlarged mediastinal lymph nodes measuring up to 14 mm were noted. Patient was placed on high-flow nasal cannula. Procalcitonin was found to be > 100 , Interleukin 6 was ordered however pending. In ER she was also started on Remdesivir 200 mg IV x1 with 100mg IV q24hr x 4 days, decadron 10 mg x1, and levaquin 750 mg IV x 1. Patient also was given NS 1L bolus. P Patient was continued on above regimen. IV antibiotics were changed to Zosyn on admission, Given high pro jasmine and progressive decline, vancomycin was also added. CRP -> increased to 450. Ferritin was noted to be 1386. Concern for secondary bacterial infection given high Procalcitonin however increasing o2 requirement on HFNC this was ordered on 03/17. Patient was given 8mg/kg IV x 1. Overnight 26ht patient was also noted to have paroxysmal atrial fibrillation. She was given amiodarone bolus, after which he converted to NSR. No prior history of afib. Lovenox full dose was ordered. Started on metoprolol 12.5 mg PO BID. Vitals/I&O/Wt Last Vital Signs Temp 98.0 F 03/17/21 08:00 Pulse 74 03/17/21 13:20 Resp 28 H 03/17/21 13:00 BP 140/74 03/17/21 13:00 Pulse Ox 95 03/17/21 13:20 03/16/21 03/17/21 03/17/21 22:59 06:59 14:59 Intake Total 303 / 903 252.576 / 8135.403 0573 / 1400 Output Total 1200 / 1200 350 / 350 Balance 303 / 903 -947.424 / -44.424 1050 / 1050 Weight last 48 hrs Weight 88.932 kg Weight 81.647 kg Physical Exam Narrative: EXAM NARRATIVE: General : Alert, awake, oriented x 3, mild respiratory distress HEENT: Grossly unremarkable Chest: Non-labored respiration on HFNC CVS; NSR ABD: Non-distended Ext: No edema Data : 03/17/21 03:46 03/17/21 03:46 Micro: Microbiology 03/16/21 07:30 Blood Culture - Preliminary Blood NEGATIVE TO DATE 03/16/21 07:30 Blood Culture - Preliminary Blood NEGATIVE TO DATE A&P Assessment and plan (1) Pneumonia due to 2019-nCoV: Status: Acute (2) Acute respiratory failure with hypoxia: Status: Acute (3) Hyponatremia: Status: Acute (4) Mixed hyperlipidemia: Status: Chronic (5) GERD (gastroesophageal reflux disease): Status: Chronic Acute respiratory distress hypoxemia due to COVID-19 pneumonia Noted to have positive covid-19 5 days prior Repeat COVID-19 PCR sent Continue HFNC - wean as tolerated DuoNeb q6hr Remdesivir 200mg IV x 1 -> 100 mg IV q24hr x 4 ( D2) Decadron 6 mg daily - total 10 day course (D2) Can not entirely rule out superimposed bacterial infection Will cover with Zosyn 3.375g IV q8hr Vancomycin added Procal > 100 Sputum culture - unable to obtain D-dimer elevated - CTA Chest - no PE Increase o2 requirement - Changed to Bipap CRP - 417, Ferritin 1386 Actemera 8mg/kg IV x1 ordered. Lasix 20 mg IV x 1 Ferritin, CRP, Lactic, pro-jasmine acid in am Paroxysmal Atrial Fibrillation - converted to NSR s/p Amiodarone bolus Metoprolol 12.5 mg PO BID Lovenox full dose ECHO in am Acute Renal Failure - resolved Creatinine 1.5 - 0.9 S/p 1L bolus in ER Saline lock IVF Monitor u/o Renal dosing of meds Hyponatremia Resolved Hypertension Hold propranolol 20 mg PO BID Changed to non-selective B-arnulfo Metoprolol 12.5 mg PO BID Dyslipidemia Lipitor 40 mg PO daily Hold if worsening LFTs CMP in am GERD Protonix 40 mg PO daily DVT ppx Lovenox Full dose. Attestations Medical Necessity Statement*: Require further hospitalization for management of respiratory failure due to COVID-19 pneumonia Time Spent in Patient Care: Greater than 35 minutes (>than 50% of time spent in counselling and/or direct pt care on unit). Coding Level of Care Code Acute [employer] Server for [facility] Fwd Diagnoses Pneumonia due to 2019-nCoV U07.1; J12.82 Acute respiratory failure with hypoxia J96.01 Hyponatremia E87.1 Mixed hyperlipidemia E78.2 GERD (gastroesophageal reflux disease) K21.9
[2021-03-17] MEDS: enoxaparin 100 mg/mL Syringe 90 MG SUBCUT (15:04)
[2021-03-17] MEDS: vancomycin 1,250 MG/250 ML PIGGYBACK 200 MG IV (15:04)
[2021-03-17] MEDS: potassium chloride ER 20 mEq Tablet PO (15:05)
[2021-03-17] MEDS: LORazepam 2 mg/mL INJ 1 mL 0.5 MG IVP (16:45)
[2021-03-17 18:12] LABS: Quest SARS-CoV-2 RNA DETECTED (NOT DETECTED)
--- NOTE | 2021-03-17 18:27 | PC.NURSE ---
Pt respirations are 44. She has taken Ativan for anxiety and sleeping well at this time. 88% on 85 % of oxygen. Contacted Dr Christopher, he requested for RT to take a look at her and given him a call. Jaida on floor and notified,
[2021-03-17] MEDS: metoprolol tartrate 25 mg Tablet 12.5 MG PO (20:02)
--- NOTE | 2021-03-17 23:07 | PC.NURSE ---
ASSUMING CARE Patient resting in bed on BIPAP, 06/07, 85%. Alert and oriented x 4. Garcia catheter in place and draining.
[2021-03-18] VITALS (34 sets, daily range): BP systolic 127–158; BP diastolic 80–101; PULSE 72–106; RESP 19–43; TEMP 36.8–37.1; O2SAT 83–97
[2021-03-18] MEDS: ipratropium-albuterol 3 mL Neb INHALATION ×5 (02:46→21:17)
[2021-03-18] MEDS: enoxaparin 100 mg/mL Syringe 90 MG SUBCUT ×2 (04:10→14:10)
[2021-03-18] MEDS: remdesivir 100 MG in sodium chloride 0.9% (100 ml) 100 ML IV (05:54)
[2021-03-18] MEDS: dexamethasone 4 mg/mL INJ 6 MG IVP (08:01)
[2021-03-18] MEDS: vancomycin 1,250 MG/250 ML PIGGYBACK 200 MG IV (08:01)
[2021-03-18] MEDS: piperacillin-tazobactam 3.375 GM in sodium chloride 0.9% (plus) 50 ML IV (08:01)
[2021-03-18] MEDS: LORazepam 2 mg/mL INJ 1 mL 0.5 MG IVP (08:02)
[2021-03-18] MEDS: pantoprazole DR 40 mg Tablet PO (08:02)
[2021-03-18] MEDS: metoprolol tartrate 25 mg Tablet 12.5 MG PO ×2 (08:02→21:07)
--- NOTE | 2021-03-18 09:05 | P.PN_ITS ---
Subjective Subjective: Interval history: Hospital course appreciated. Overnight as per nurse patient has been anxious and stating she is tired and would rather be intubated. Today morning after receiving Ativan she is alot more calm. Eating breakfast on high flow. We discussed that we will try to avoid intubation as much as possible as that increases mortality with COVID19. Patient verbalizes understanding. Denies any N/V, headache. Discussed that we will start sejal IS, flutter valve. Vitals/I&O/Wt Last Vital Signs Temp 98.7 F 03/18/21 05:00 Pulse 100 03/18/21 08:44 Resp 29 H 03/18/21 08:44 BP 152/89 03/18/21 04:00 Pulse Ox 95 03/18/21 08:44 03/17/21 03/18/21 03/18/21 22:59 06:59 14:59 Intake Total 640 / 2134.985 150 / 2284.985 Output Total 1000 / 1350 600 / 1950 Balance -360 / 784.985 -450 / 334.985 Weight last 48 hrs Weight 88.314 kg Weight 88.932 kg Physical Exam Narrative: EXAM NARRATIVE: General: No acute distress, AO x3, heated high flow, anxious, tired HEENT: PERRLA, pupils bilaterally equal and reactive Chest: Normal vesicular breath sounds, b/l diffuse ronchi all over lung field. Equal good air entry bilaterally CVS: S1-S2 regular, no murmurs, no tachycardia, no gallops, no rubs Abdomen: Soft, nontender, no organomegaly, bowel sounds present Neuro: No focal deficits, no facial deformity, AO x3, power 5/5 in all limbs Urinary Catheter Management^: Garcia: Cath Placed During This Visit: yes Reason for Continuing Indwelling Catheter: Accurate Measurement of Urinary Output in Critically Ill Patients Urinary Catheter Date of Insertion: 03/17/21 Urinary Catheter Time of Insertion: 08:45 Data : 03/18/21 11:00 03/18/21 11:00 Micro: Microbiology 03/16/21 07:30 Blood Culture - Preliminary Blood NEGATIVE TO DATE 03/16/21 07:30 Blood Culture - Preliminary Blood NEGATIVE TO DATE A&P Assessment and plan (1) Pneumonia due to 2019-nCoV: Status: Acute (2) Acute respiratory failure with hypoxia: Status: Acute (3) Hyponatremia: Status: Acute (4) Mixed hyperlipidemia: Status: Chronic (5) GERD (gastroesophageal reflux disease): Status: Chronic Acute respiratory distress hypoxemia due to COVID-19 pneumonia Post Actemra. Depending on inflammatory markers will decide of repeating 2nd dose in next 24 hrs. Remdesevir 100 mg x4 days. Dexamethasone 6 mg QD Duoneb q4h, budesonide bid. Incentive spirometry, flutter valve. Vit c, zinc, tessalon. Oxygen supplementation keeping saturation over 92%. Procal elevated. High likely of super imposed bacterial infection. Check procal, MRSA, bacterial antigen, legionella. C/w Vanc. Change to imipenem. C/w full dose lovenox as patient is critically sick. Contine to monitor inflammatory markers. Precedex for anxiety. No more ativan to avoid decrease respiratory drive. Keep patient net negative. Lasix 20 mg IV stat. luid restriction 1500 Pulm consult. Paroxysmal Atrial Fibrillation - converted to NSR s/p Amiodarone bolus Switch Metoprolol 12.5 mg PO BID to coreg for better BP control. Lovenox full dose ECHO ordered HTN: No h/o HTN. Goal BP less than 140/90 mmhg. Switch metoprolol to coreg 6.25 mg BID. Avoiding KEILY due to recent EZRA. Acute Renal Failure - resolved Creatinine 1.5 - 0.9 Med rec done for nephrotoxic drug Monitor u/o Renal dosing of meds Hyponatremia Resolved Hypertension Hold propranolol 20 mg PO BID Changed to non-selective B-arnulfo Metoprolol 12.5 mg PO BID Dyslipidemia Lipitor 40 mg PO daily Hold if worsening LFTs CMP in am GERD Protonix 40 mg PO daily DVT ppx Lovenox Full dose. FC Attestations Medical Necessity Statement*: ARDS due to COVID 19 Critical Care Time: The high probability of a clinically significant, sudden or life threatening deterioration of the patient's [Pulm] system(s) required my full and direct attention, intervention and personal management. The critical care time is as shown. This time is in addition to time spent performing any reported procedures but includes the following: [x] Data and vital sign review and interpretation [x] Patient assessment, examination and intervention [x] Documentation [x] Medication orders and management Coding Level of Care Code Acute Inspector Type for [facility] Diagnoses Pneumonia due to 2019-nCoV U07.1; J12.82 Acute respiratory failure with hypoxia J96.01 Hyponatremia E87.1 Mixed hyperlipidemia E78.2 GERD (gastroesophageal reflux disease) K21.9
[2021-03-18] MEDS: budesonide 0.5 mg/2 mL Neb INHALATION ×2 (09:07→21:17)
[2021-03-18] MEDS: FUROsemide 10 mg/mL SDV 2mL 20 MG IVP (09:24)
[2021-03-18] MEDS: benzonatate 100 mg Capsule PO ×3 (09:24→21:07)
[2021-03-18] MEDS: zinc gluconate 50 mg Tablet PO (09:24)
[2021-03-18 11:13] LABS: Hematocrit 36.6 % (37.0-47.0); Lymphocytes # 1.2 10^3/uL (0.8-4.8); Lymphocytes % 5.7 %; Mean Corpuscular HGB Conc 32.8 g/dL (30.0-36.0); Mean Corpuscular Hemoglobin 30.2 pg (28.0-34.0); Mean Platelet Volume 10.5 fL (7.4-10.4); Monocytes # 0.8 10^3/uL (0.2-0.9); Monocytes % 3.7 %; Neutrophils # 17.18 10^3/uL (1.8-7.7); Neutrophils % 80.3 %; Nucleated Red Blood Cells % 0 %; Platelet Count 349 10^3/cmm (130-400); Red Blood Count 3.98 10^6/uL (4.1-5.3); Red Cell Distribution Width 13.9 % (12.1-15.1); White Blood Count 21.4 10^3/uL (4.0-10.0)
[2021-03-18 11:47] LABS: Alanine Aminotransferase 27 U/L (0-33); Albumin Level 2.8 g/dL (3.5-5.2); Alkaline Phosphatase 114 IU/L (35-105); Aspartate Amino Transferase 31 U/L (0-32); Blood Urea Nitrogen 36 mg/dL (8-23); Calcium 8.5 mg/dL (8.5-10.5); Carbon Dioxide 17 mmol/L (22-29); Chloride 104 mmol/L (98-107); Globulin 2.9 g/dL (1.3-4.6); Glomerular Filtration Rate 71.8 mL/min (90-130); Glucose 133 mg/dL (65-115); Osmolality Calculated 300 mOsm/kg (285-295); Sodium 140 mmol/L (136-145); Total Bilirubin 0.3 mg/dL (0.15-1.2); Total Protein 5.7 g/dL (6.6-8.7)
[2021-03-18 11:49] LABS: Anion Gap 22.3 (5-19); Lactate (Lactic Acid level) 1.3 mmol/L (0.5-2.2); Potassium 3.3 mmol/L (3.5-5.1)
[2021-03-18 11:56] LABS: NT Pro B Type Natriuretic Pept 513 pg/mL (0-125); Procalcitonin 43.39 ng/mL (0-0.5); Thyroid Stimulating Hormone 0.19 uIU/mL (0.27-4.20)
[2021-03-18 12:06] LABS: Iron 20 ug/dL (37-145); Percent Saturation 12.5 % (20-50); Total Iron Binding Capacity 160 mcg/dl; Unsaturated Iron Binding 140 ug/dL (112-347)
[2021-03-18 13:33] LABS: Osmolality Urine 230 mOsm/kg (50-1200)
--- NOTE | 2021-03-18 14:45 | USCV_ITS ---
Ebony Kwan Age: 66 Gender: F : 1955 Exam Date: 03/18/2021 09:26 Ordering Phys: Justin Christopher MD Technologist: Exam Location: [facility] [place] Indication: CHF BP: 153 / 99 HR: 97 Rhythm: Sinus Technical Quality: Poor MEASUREMENTS (Male / Female) Normal Values 2D ECHO LV Diastolic Diameter PLAX 4.6 cm 4.2 - 5.9 / 3.9 - 5.3 cm LV Systolic Diameter PLAX 3.5 cm IVS Diastolic Thickness 1.2 cm 0.6 - 1.0 / 0.6 - 0.9 cm IVS Systolic Thickness 1.7 cm LVPW Diastolic Thickness 1.0 cm 0.6 - 1.0 / 0.6 - 0.9 cm LVPW Systolic Thickness 1.5 cm LVOT Diameter 2.1 cm LV Ejection Fraction 2D Teich 48.9 % LV Ejection Fraction MOD 2C 72.6 % LV Ejection Fraction 2C AL 73.7 % LA Diameter 3.2 cm LA Width 3.6 cm LA Height 4.3 cm RA Width 2.9 cm RA Height 4.3 cm Aorta at Sinotubular Diameter 2.5 cm DOPPLER AV Peak Velocity 172.0 cm/s LVOT Peak Velocity 121.0 cm/s AV Area Cont Eq vti 2.6 cm squared AV Area Cont Eq pk 2.3 cm squared MV Area PHT 4.9 cm squared Mitral E to A Ratio 0.7 MV E' Velocity 36.5 cm/s Mitral E to MV E' Ratio 9.3 Mitral E to LV E' Lateral Ratio 9.7 Mitral E to LV E' Septal Ratio 9.0 TR Peak Velocity 413.7 cm/s TR Peak Gradient 68.4 mmHg TV Peak E Velocity 135.0 cm/s Right Atrial Pressure 3.0 mmHg Pulmonary Artery Systolic Pressu 71.4 mmHg PV Peak Velocity 67.0 cm/s FINDINGS Left Ventricle Normal left ventricular size and systolic function, EF 68 %. Mild left ventricular hypertrophy. Grade I/IV diastolic dysfunction (abnormal relaxation filling pattern), normal to mildly elevated filling pressures. Right Ventricle The right ventricle is normal in size and function. Right Atrium The right atrium is normal in size. Left Atrium The left atrium is normal in size. Mitral Valve Trace to mild mitral valve regurgitation. Mild mitral annular calcification. Aortic Valve No gross abnormalities noted Tricuspid Valve No gross abnormalities noted Pulmonic Valve Pulmonic valve not well visualized. Pericardium Normal pericardium without effusion. Aorta Normal ascending aorta dimension. CONCLUSIONS Normal left ventricular size and systolic function, EF 68 %. Mild left ventricular hypertrophy. Grade I/IV diastolic dysfunction (abnormal relaxation filling pattern), normal to mildly elevated filling pressures. Trace to mild mitral valve regurgitation. Mild mitral annular calcification. There is no pericardial effusion. There are no intracardiac masses. No previous study is available for comparison. Dr Chauncey Emery MD [facility] (Electronically Signed) Final Date: 18 March 2021 20:33 S
--- NOTE | 2021-03-18 16:15 | DCPLANNER ---
Per rounding; we may ask [facility] to look at later in the week.
[2021-03-18] MEDS: iron sucrose 200 MG in sodium chloride 0.9% (100 ml) 100 ML 220 MG IV (16:22)
[2021-03-18] MEDS: potassium chloride ER 20 mEq Tablet 40 MEQ PO (16:22)
[2021-03-18] MEDS: ferrous gluconate 324 mg Tablet PO (17:38)
[2021-03-18] MEDS: ascorbic acid 500 mg Tablet 1000 MG PO (17:38)
[2021-03-18 17:46] LABS: Free T4 Free Thyroxine 1.53 ng/dL (0.82-1.77); T3 Free 1.2 PG/ML (2.0-4.4)
--- NOTE | 2021-03-18 20:54 | P.CONIM_ITS ---
Providers/Reason For Consult Consulting Physician/Specialty*: Hammad Franklin MD/ Pulmonary Critical Care Reason for Consult*: Acute hypoxic respiratory failure secondary to ARDS due to COVID-19 pneumonia Attending Physician: Darrell Lawson MD Primary Care Provider: RENA Bailey-C History of Present Illness History of Present Illness Ebony Kwan is a 66 year old female with a PMH significant for anxiety, depression, GERD, mixed urinary incontinence, HTN, hyperlipidemia, remote tobacco abuse and recent diagnosis of COVID-19 infection who presented to the hospital with respiratory distress ON 03/16/21, apparently patient had a COVID-19 test performed 5 days prior at an outside facility which positive. Also complained of fever, chills, nausea and productive cough. Upon arrival to ER she was noted to have oxygen saturation 70s, RR 26, hemodynamically stable, Laboratory significant for BUN 33 and creatinine of 1.5. Prior creatinine of 0.9 in 2019. Initial lactic acid of 3.4 with a repeat of 2.7. slightly elevated AST of 39, ALT of 34 and alkaline phosphatase of 110. Creatinine kinase 176. Chest x-ray was performed which showed multifocal pneumonia which was also noted on CT angio chest. No evidence of pulmonary embolism. Scattered enlarged mediastinal lymph nodes measuring up to 14 mm were noted. Patient was placed on high-flow nasal cannula.Oxygen saturation improved. she was admitted to ICU for hypoxic respiratory failure requiring high flow O2. Pulmonary critical care consulted for hypoxic respiratory failure. Patient seen at bedside today morning she reported improvement in her symptoms and feels less dyspneic labs and imaging reviewed and pertinent findings incorporated in assessment and plan Review of Systems General: Reports: 10 or more systems reviewed and unremarkable except in HPI and below Meds/Allergies Home Medications and Allergies Home Medications Medication Instructions Recorded Confirmed Last Taken Type acetaminophen [Tylenol] 325 mg PO Q6H PRN 11/08/19 03/16/21 Unknown History ibuprofen [IBU] 200 mg PO Q6H PRN 11/08/19 03/16/21 Unknown History atorvastatin 40 mg tablet 40 mg PO DAILY #90 tab 12/27/20 03/16/21 03/15/21 Rx pantoprazole 40 mg tablet,delayed 40 mg PO DAILY #90 tab 12/27/20 03/16/21 03/15/21 Rx release propranolol 20 mg tablet 20 mg PO BID #180 tab 12/27/20 03/16/21 03/15/21 Rx solifenacin 10 mg tablet 10 mg PO DAILY #90 tab 02/20/21 03/16/21 03/15/21 Rx Allergies Allergy/AdvReac Type Severity Reaction Status Date / Time No Known Allergies Allergy Verified 02/22/21 12:52 Current Medications Current Medications Generic Name Dose Route Start Last Admin Trade Name Freq PRN Reason Stop Dose Admin Acetaminophen 650 mg 03/16/21 14:55 03/16/21 22:58 Acetaminophen 325 Mg Tablet PO 650 mg Q6H PRN Administration Mild/Mod Pain Or Temp >/= 101 Hydrocodone Bitart/Acetaminophen 1 tab 03/16/21 14:55 03/16/21 16:35 Hydrocodone-Acetaminophen 5-325 Mg Tablet PO 1 tab Q4H PRN Administration MODERATE TO SEVERE PAIN Albuterol/Ipratropium 3 ml 03/18/21 12:00 03/18/21 15:03 Ipratropium-Albuterol 3 Ml Neb INHALATION 3 ml Q4H.RESPIRATORY NIKKO Administration Ascorbic Acid 1,000 mg 03/18/21 18:00 03/18/21 17:38 Ascorbic Acid 500 Mg Tablet PO 1,000 mg BID NIKKO Administration Benzonatate 100 mg 03/18/21 09:00 03/18/21 14:10 Benzonatate 100 Mg Capsule PO 100 mg TID NIKKO Administration Budesonide 0.5 mg 03/18/21 09:00 03/18/21 09:07 Budesonide 0.5 Mg/2 Ml Neb INHALATION 0.5 mg BID NIKKO Administration Dexamethasone 6 mg 03/17/21 09:00 03/18/21 08:01 Dexamethasone 4 Mg/Ml Inj IVP 6 mg Q24H NIKKO Administration Enoxaparin Sodium 90 mg 03/17/21 15:30 03/18/21 14:10 Enoxaparin 100 Mg/Ml Syringe 1 mg/kg (90 mg) 90 mg SUBCUT Administration Q12H NIKKO Ferrous Gluconate 324 mg 03/18/21 18:00 03/18/21 17:38 Ferrous Gluconate 324 Mg Tablet PO 324 mg BIDWM NIKKO Administration Remdesivir 100 mg/ Sodium 100 mls @ 100 mls/hr 03/17/21 06:00 03/18/21 06:54 Chloride IV 03/20/21 06:59 Infused Q24H NIKKO Infusion Vancomycin/PEG/NADA/Lysine/Water 1,250 mg in 250 mls @ 200 mls/hr 03/17/21 16:00 03/18/21 09:24 Vancocin IV Infused Q18H NIKKO Infusion Imipenem/Cilastatin Sodium 500 100 mls @ 200 mls/hr 03/18/21 10:00 03/18/21 15:19 mg/ Sodium Chloride IV Infused Q6H NIKKO Infusion Protocol Iron Sucrose 200 mg/ Sodium 110 mls @ 220 mls/hr 03/18/21 15:30 03/18/21 17:11 Chloride IV 03/22/21 15:59 Infused Q24H NIKKO Infusion Metoprolol Tartrate 12.5 mg 03/17/21 21:00 03/18/21 08:02 Metoprolol Tartrate 25 Mg Tablet PO 12.5 mg BID@0900,2100 NIKKO Administration Pantoprazole Sodium 40 mg 03/17/21 09:00 03/18/21 08:[address] 40 Mg Tablet PO 40 mg DAILY NIKKO Administration Zinc Gluconate 50 mg 03/18/21 09:00 03/18/21 09:24 Zinc Gluconate 50 Mg Tablet PO 50 mg DAILY NIKKO Administration PFSH Acute PFSH: Medical History Enlarged thyroid GERD (gastroesophageal reflux disease) Mixed hyperlipidemia Mixed stress and urge incontinence Obesity (BMI 30-39.9) Situational mixed anxiety and depressive disorder Surgical History History of section History of cholecystectomy History of endometrial ablation 2010 History of knee surgery bilateral scope History of laminectomy Lumbar Family History Other Cancer Heart disease Social History Smoking and tobacco status: never smoked Second hand smoke exposure: No Smoking risk assessment/counseling performed?: No Alcohol intake: never Desire information about alcohol rehabilitation?: No Counseling given: No Desire information about substance/drug rehabilitation?: No Counseling given: No Adopted: No Caregiver/support person: No Lives independently: Yes Household members: spouse Housing: House Marital status: service: No History of recent travel: No Current gender identity: Female Vitals/I&O/Wt Last Vital Signs Temp 98.2 F 03/18/21 18:00 Pulse 86 03/18/21 18:00 Resp 35 H 03/18/21 18:00 BP 158/99 03/18/21 18:00 Pulse Ox 90 03/18/21 18:00 03/18/21 03/18/21 03/18/21 06:59 14:59 22:59 Intake Total 150 / 2284.985 1083.958 / 1083.958 690 / 1773.958 Output Total 600 / 1950 300 / 300 600 / 900 Balance -450 / 334.985 783.958 / 783.958 90 / 873.958 Weight last 48 hrs Weight 194 lb 11.2 oz Weight 196 lb 1 oz Physical Exam Narrative: EXAM NARRATIVE: General: No acute distress, AO x3, heated high flow, tired HEENT: PERRLA, pupils bilaterally equal and reactive Chest: Normal vesicular breath sounds, b/l diffuse ronchi all over lung field. Equal good air entry bilaterally CVS: S1-S2 regular, no murmurs, no tachycardia, no gallops, no rubs Abdomen: Soft, nontender, no organomegaly, bowel sounds present Neuro: No focal deficits, no facial deformity, AO x3, power 5/5 in all limbs Urinary Catheter Management^: Garcia: Cath Placed During This Visit: yes Reason for Continuing Indwelling Catheter: Accurate Measurement of Urinary Output in Critically Ill Patients Urinary Catheter Date of Insertion: 03/17/21 Urinary Catheter Time of Insertion: 08:45 Data Labs: Other Labs: Laboratory Results WBC 21.4 10^3/uL (4.0 -10.0) H 03/18/21 11:00 RBC 3.98 10^6/uL (4.1 -5.3) L 03/18/21 11:00 Hgb 12.0 g/dL (11.5-1 5.3) 03/18/21 11:00 Hct 36.6 % (37.0-47.0 ) L 03/18/21 11:00 MCV 92.0 fL (81-99) 03/18/21 11:00 MCH 30.2 pg (28.0-34. 0) 03/18/21 11:00 MCHC 32.8 g/dL (30.0-3 6.0) 03/18/21 11:00 RDW 13.9 % (12.1-15.1 ) 03/18/21 11:00 Plt Count 349 10^3/cmm (130 -400) 03/18/21 11:00 MPV 10.5 fL (7.4-10.4 ) H 03/18/21 11:00 Neut % (Auto) 80.3 % 03/18/21 11:00 Lymph % (Auto) 5.7 % 03/18/21 11:00 [place] % (Auto) 3.7 % 03/18/21 11:00 Eos % (Auto) 0.0 % 03/18/21 11:00 Baso % (Auto) 0.0 % 03/18/21 11:00 Neut # (Auto) 17.18 10^3/uL (1. 8-7.7) H 03/18/21 11:00 Lymph # (Auto) 1.2 10^3/uL (0.8- 4.8) 03/18/21 11:00 [place] # (Auto) 0.8 10^3/uL (0.2- 0.9) 03/18/21 11:00 Eos # (Auto) 0.0 10^3/uL (0.0- 0.8) 03/18/21 11:00 Baso # (Auto) 0.0 10^3/uL (0.0- 0.1) 03/18/21 11:00 Nucleated RBC % (a uto) 0 % 03/18/21 11:00 Total Counted 100 (0-100) 03/16/21 07:30 Atypical Lymphs % 0.0 % (0-5) 03/16/21 07:30 Absolute Neutrophi ls 3.9 10^3/cmm (1.4 -6.5) 03/16/21 07:30 Segmented Neutroph ils 32 % 03/16/21 07:30 Abs Segm Neuts (Ma n) 1.5 10/cmm (1.6-7 .1) L 03/16/21 07:30 Band Neutrophils 50.0 % 03/16/21 07:30 Abs Band Neuts (Ma n) 2.4 10^3/cmm (0.0 -1.2) H 03/16/21 07:30 Absolute Lymphocyt es 0.7 10^3/cmm (1.2 -3.4) L 03/16/21 07:30 Lymphocytes (Manua l) 15 % 03/16/21 07:30 Monocytes (Manual) 3.0 % 03/16/21 07:30 Absolute Monocytes 0.1 10^3/cmm (0.1 -0.6) 03/16/21 07:30 Eosinophils (Manua l) 0 % 03/16/21 07:30 Absolute Eosinophi ls 0.0 10^3/cmm (0.0 -0.7) 03/16/21 07:30 Basophils (Manual) 0.0 % 03/16/21 07:30 Absolute Basophils 0.0 10^3/cmm (0.0 -0.2) 03/16/21 07:30 Nucleated RBCs # 0.0 /100WBC 03/18/21 11:00 Platelet Estimate Normal (Normal) 03/16/21 07:30 PT 14.40 SECONDS (12 .1-14.9) 03/16/21 08:07 INR 1.09 (0.8-1.2) 03/16/21 08:07 D-Dimer 1.71 ug/mIFEU (0- 0.59) H 03/16/21 08:07 Specimen Type Arterial 03/16/21 07:29 Sample Site Radial, left 03/16/21 07:29 ABG pH 7.39 (7.35-7.45) 03/16/21 07:29 ABG pCO2 28.9 mmHg (35-45) L 03/16/21 07:29 ABG pO2 62.9 mmHg (80.0-1 00.0) L 03/16/21 07:29 ABG HCO3 17.4 mmol/L (22-2 6) L 03/16/21 07:29 ABG O2 Saturation 91.3 03/16/21 07:29 ABG Base Excess -6.3 mmol/L (-2.0 -2.0) L 03/16/21 07:29 Gurjit Test Pos 03/16/21 07:29 A-a O2 Gradient 79.1 mmHg (5-10) H 03/16/21 07:29 Hematocrit 41.4 % (37-47) 03/16/21 07:29 Hgb O2 Saturation 90.0 % (95-100) L 03/16/21 07:29 Carboxyhemoglobin 0.6 %THgb (0.4-20 .1) 03/16/21 07:29 Methemoglobin 0.8 % (0.4-1.5) 03/16/21 07:29 Total Hemoglobin 13.5 g/dL (12-16) 03/16/21 07:29 Sodium 128.0 mmol/L (131 -143) L 03/16/21 07:29 Potassium 3.5 mmol/L (3.5-5 .0) 03/16/21 07:29 Glucose 84.0 mg/dL (70-11 5) 03/16/21 07:29 Ionized Calcium 1.1 mmol/L (1.1-1 .4) 03/16/21 07:29 O2 Delivery Device Nrb 03/16/21 07:29 O2 Liters/Min 15.0 % 03/16/21 07:29 FiO2 100.0 % 03/16/21 07:29 Press Breaker ID Ed 03/16/21 07:29 Sodium 140 mmol/L (136-1 45) 03/18/21 11:00 Potassium 3.3 mmol/L (3.5-5 .1) L 03/18/21 11:00 Chloride 104 mmol/L (98-10 7) 03/18/21 11:00 Carbon Dioxide 17 mmol/L (22-29) L 03/18/21 11:00 Anion Gap 22.3 (5-19) H 03/18/21 11:00 BUN 36 mg/dL (8-23) H 03/18/21 11:00 Creatinine 0.8 mg/dL (0.5-0. 9) 03/18/21 11:00 GFR Calculation 71.8 mL/min (90-1 30) L 03/18/21 11:00 Glucose 133 mg/dL (65-115 ) H 03/18/21 11:00 Calculated Osmolal ity 300 mOsm/kg (285- 295) H 03/18/21 11:00 Lactic Acid 3.4 mmol/L (0.5-2 .2) H 03/16/21 07:30 Lactic Acid (Sepsi s) 2.7 mmol/L (0.5-2 .2) H 03/16/21 10:39 Lactate 1.3 mmol/L (0.5-2 .2) 03/18/21 11:00 Calcium 8.5 mg/dL (8.5-10 .5) 03/18/21 11:00 Iron 20 ug/dL (37-145) L 03/18/21 11:00 TIBC 160 mcg/dl 03/18/21 11:00 % Saturation 12.5 % (20-50) L 03/18/21 11:00 Unsat Iron Binding 140 ug/dL (112-34 7) 03/18/21 11:00 Ferritin 1386 ng/mL (15-15 0) H 03/17/21 03:46 Total Bilirubin 0.3 mg/dL (0.15-1 .2) 03/18/21 11:00 AST 31 U/L (0-32) 03/18/21 11:00 ALT 27 U/L (0-33) 03/18/21 11:00 Alkaline Phosphata se 114 IU/L (35-105) H 03/18/21 11:00 Lactate Dehydrogen ase 340 U/L (135-214) H 03/17/21 03:46 Creatine Kinase 176 U/L (26-192) 03/16/21 07:30 C-Reactive Protein 417.0 mg/L (0.0-4 .9) H 03/17/21 03:46 NT-Pro-B Natriuret Pep 513 pg/mL (0-125) H 03/18/21 11:00 Total Protein 5.7 g/dL (6.6-8.7 ) L 03/18/21 11:00 Albumin 2.8 g/dL (3.5-5.2 ) L 03/18/21 11:00 Globulin 2.9 g/dL (1.3-4.6 ) 03/18/21 11:00 Procalcitonin 43.39 ng/mL (0-0. 5) H 03/18/21 11:00 TSH 0.19 uIU/mL (0.27 -4.20) L 03/18/21 11:00 Free T4 1.53 ng/dL (0.82- 1.77) 03/18/21 11:00 Free T3 1.2 PG/ML (2.0-4. 4) L 03/18/21 11:00 Urine Color Yellow (Yellow) 03/16/21 16:00 Urine Appearance Clear (CLEAR) 03/16/21 16:00 Urine pH 5 (5-7) 03/16/21 16:00 Ur Specific Gravit y 1.010 (1.005-1.0 30) 03/16/21 16:00 Urine Protein Neg (Negative) 03/16/21 16:00 Urine Glucose (UA) Norm (Normal) 03/16/21 16:00 Urine Ketones Negative (Negati ve) 03/16/21 16:00 Urine Blood Trace (Negative) H 03/16/21 16:00 Urine Nitrate Negative (Negati ve) 03/16/21 16:00 Urine Bilirubin Neg (Negative) 03/16/21 16:00 Urine Urobilinogen Norm mg/dL (Negat gabriela) 03/16/21 16:00 Ur Leukocyte Trini ase Negative (Negati ve) 03/16/21 16:00 Urine RBC Rare /hpf (0-2) 03/16/21 16:00 Urine WBC 0-4 /hpf (0-5) H 03/16/21 16:00 Ur Squamous Epith Cells Rare /hpf (0-5) 03/16/21 16:00 Amorphous Sediment Not Reportable 03/16/21 16:00 Urine Bacteria Trace /hpf (NONE) 03/16/21 16:00 Urine Osmolality 230 mOsm/kg (50-1 200) 03/16/21 16:00 Ur Random Sodium 22 mmol/L 03/16/21 16:00 Urine Creatinine 22 mg/dL (28-217) L 03/16/21 16:00 Nasal/Oral COVID-1 9 PCR Cancelled 03/16/21 08:35 SARS-CoV-2 RNA (RT -PCR) Detected (NOT DE TECTED) A 03/16/21 08:35 SARS-CoV-2 Ag (Rap id) Negative (Negati ve) 03/16/21 08:35 Impressions Chest X-Ray 03/16/21 07:30 IMPRESSION: Severe bilateral multifocal pneumonia. Chest CTA 03/16/21 07:57 IMPRESSION: 1. No evidence of pulmonary embolism. 2. Severe multifocal pneumonia. Radiation Dose CTDIVOL = (mGy): DLP = 545.65 (mGy-cm) Micro: Micro: Microbiology 03/18/21 09:50 MRSA Culture - Fin al Nose A&P Assessment and plan (1) ARDS (adult respiratory distress syndrome): Status: Acute (2) Acute respiratory failure with hypoxia: Status: Acute (3) Pneumonia due to 2019-nCoV: Status: Acute (4) Obesity (BMI 30-39.9): Status: Chronic (5) GERD (gastroesophageal reflux disease): Status: Chronic Qualifiers: Esophagitis presence: esophagitis presence not specified Qualified Code(s): K21.9 - Gastro-esophageal reflux disease without esophagitis (6) Hypokalemia: Status: Acute (7) Iron deficiency: Status: Acute #Acute hypoxic respiratory failure secondary ARDS due to to COVID-19 pneumonia #Hypokalemia #High procalcitonin $ Fe deficiency - serum iron 20; % sat 12.5% -CTA 03/16/2021: No evidence of pulmonary embolism. Severe multifocal pneumonia. -COVID-19 PCR + 03/11/2021 at outside facility, -MRSA nares, blood cultures negative -Afebrile last 24 hours, elevated WBC count, lactic acid, procalcitonin -Elevated LDH, ferritin, CRP, and [id number] every 48 hours -Continue Vancomycin; changed zosyn to imipenam -Currently on Remdesivir 5 day protocol -Continue Dexamethasone 6 mg daily -AB.39/28/62/17/91% saturation on HFNC 50L 75% -Continue DuoNeb nebulizations every 4 hours scheduled & budesonide 0.5 mg bid -Continue to titrate down FiO2 -BNP - 3482 >> 513; Echo 03/18/21: normal LVEF 68%, mlld LVH, Grade I/IV Diastolic dysfunction; Trace to mild mitral valve regurgitation. Mild mitral annular calcification. -Continue hemodynamic monitoring -Carvedilol 6.25 mg bid -Net +1.1 L since admission; -Normal renal function -Sodium 140, potassium 3.3, bicarb 17, anion gap 22, - K3.3-supplemented; Anion gap metabolic acidosis likely due to lactic acidosis -Received 1 dose Lasix 20 mg IV push today -Monitor renal functions, electrolytes, input and output closely -improving LFTs -Sugars well controlled; started on scale coverage -Regular diet ; PPI for GI prophylaxis -On lovenox for DVT prophylaxis -Feso4 324 mg BIDWM and IV Venofer 200 mg daily for iron deficiency Recommendations conveyed to hospitalist, RN, RT covering the patient Consult Attestations Medical Necessity Statement: Acute hypoxic respiratory failure secondary ARDS due to to COVID-19 pneumonia requiring high flow nasal cannula Time Spent in Patient Care: (>than 50% of time spent in counselling and/or direct pt care on unit) . Critical Care Time: The high probability of a clinically significant, sudden or life threatening deterioration of the patient's [respiratory, infectious] system(s) required my full and direct attention, intervention and personal management. The critical care time is as shown. This time is in addition to time spent performing any reported procedures but includes the following: [x] Data and vital sign review and interpretation [x] Patient assessment, examination and intervention [x] Documentation [x] Medication orders and management Critical Care Time (min): 45 Coding Level of Care Code New Pt Acute Risk Control Director for Chg Fwd Patient Type New History Comprehensive Exam Comprehensive Medical Decision Making High Complexity Diagnoses ARDS (adult respiratory distress syndrome) J80 Acute respiratory failure with hypoxia J96.01 Pneumonia due to 2019-nCoV U07.1; J12.82 Obesity (BMI 30-39.9) E66.9 GERD (gastroesophageal reflux disease) K21.9 Esophagitis presence: esophagitis presence not specified Hypokalemia E87.6 Iron deficiency E61.1 Time Spent (min) 45
[2021-03-18] MEDS: lidocaine 2% viscous 15 ML, aluminum-mag hydrox-simethicon 30 ML, sucralfate oral liq 1 GM PO (21:05)
[2021-03-19] VITALS (37 sets, daily range): BP systolic 123–164; BP diastolic 70–116; PULSE 71–98; RESP 14–40; TEMP 36.7–37.1; O2SAT 84–96
[2021-03-19] MEDS: ipratropium-albuterol 3 mL Neb INHALATION ×7 (00:08→23:51)
[2021-03-19] MEDS: ondansetron 2 mg/ML SDV 2 mL 4 MG IVP (00:37)
--- NOTE | 2021-03-19 01:38 | PC.NURSE ---
BIPAP In 2100 hour, patient breathing in the 40s and oxygen sustaining at 82%. Respiratory notified and patient back on BIPAP.
--- NOTE | 2021-03-19 01:39 | PC.NURSE ---
N&V 0000 Patient called nurse for assistance. Patient was feeling nauseated and asked for the BIPAP to be taken off. Patient vomited. Zofran given. Patient placed back on HHFNC at this time until nausea subsides. 0140 Patient oxygen saturations are in the low 80s on HHFNC at 55L and 75%. Settings turned up to 60L and 100% FiO2 by RT.
--- NOTE | 2021-03-19 02:30 | PC.NURSE ---
HEMATURIA Patient having hematuria. Dr. York notified of this and lovenox 90 mg BID. Urinalysis ordered, and nurse asked physician if lovenox 90 mg BID would be continued. Awaiting further orders.
[2021-03-19] MEDS: vancomycin 1,250 MG/250 ML PIGGYBACK 200 MG IV ×2 (03:06→15:19)
[2021-03-19 04:01] LABS: Hematocrit 34.5 % (37.0-47.0); Hemoglobin 11.5 g/dL (11.5-15.3); Mean Corpuscular HGB Conc 33.3 g/dL (30.0-36.0); Mean Corpuscular Hemoglobin 29.7 pg (28.0-34.0); Mean Corpuscular Volume 89.1 fL (81-99); Mean Platelet Volume 10.7 fL (7.4-10.4); Platelet Count 403 10^3/cmm (130-400); Red Blood Count 3.87 10^6/uL (4.1-5.3); Red Cell Distribution Width 13.9 % (12.1-15.1)
[2021-03-19 04:16] LABS: Estmated Average Glucose 117; Hemoglobin A1C 5.7 % (4.0-6.0)
[2021-03-19 04:21] LABS: Alanine Aminotransferase 24 U/L (0-33); Albumin Level 2.6 g/dL (3.5-5.2); Alkaline Phosphatase 145 IU/L (35-105); Anion Gap 17.4 (5-19); Aspartate Amino Transferase 27 U/L (0-32); Blood Urea Nitrogen 33 mg/dL (8-23); C Reactive Protein 85.3 mg/L (0.0-4.9); Calcium 8.7 mg/dL (8.5-10.5); Carbon Dioxide 22 mmol/L (22-29); Chloride 103 mmol/L (98-107); Creatine Phosphokinase 54 U/L (26-192); Globulin 3.6 g/dL (1.3-4.6); Glomerular Filtration Rate 83.7 mL/min (90-130); Glucose 114 mg/dL (65-115); Lactate Dehydrogenase 408 U/L (135-214); NT Pro B Type Natriuretic Pept 647 pg/mL (0-125); Osmolality Calculated 296 mOsm/kg (285-295); Potassium 3.4 mmol/L (3.5-5.1); Sodium 139 mmol/L (136-145); Total Bilirubin 0.3 mg/dL (0.15-1.2); Total Protein 6.2 g/dL (6.6-8.7)
[2021-03-19 04:32] LABS: Slide Review Slide Review Perform
[2021-03-19 04:36] LABS: Absolute Neutrophil 15.4 10^3/cmm (1.4-6.5); Absolute Segmented Neutrophil 13.3 10/cmm (1.6-7.1); Band Neutrophils Absolute 2.1 10^3/cmm (0.0-1.2); Eosinophils 0 %; Lymphocytes 7 %; Lymphocytes Absolute 1.3 10^3/cmm (1.2-3.4); Monocytes Absolute 0.6 10^3/cmm (0.1-0.6); Platelet Estimate Normal (Normal); Segmented Neutrophils 70 %; Total Cells Counted 100 (0-100)
[2021-03-19 04:37] LABS: D Dimer 0.92 ug/mIFEU (0-0.59)
[2021-03-19 04:39] LABS: Ferritin 1282 ng/mL (15-150)
[2021-03-19 05:14] LABS: ABG PCO2 32.1 mmHg (35-45); ABG PH Result 7.44 (7.35-7.45); Base Excess ABG -1.5 mmol/L (-2.0-2.0); PO2 ABG 66.5 mmHg (80.0-100.0)
[2021-03-19 05:15] LABS: Oxygen Saturation ABG 93.7; Potassium Level - ABG 3.2 mmol/L (3.5-5.0)
[2021-03-19 05:16] LABS: Arterial Blood Gas Hematocrit 36.5 % (37-47); Ionized Calcium Level - ABG 1.2 mmol/L (1.1-1.4); Total Hemoglobin 11.9 g/dL (12-16)
[2021-03-19 05:17] LABS: Carboxyhemoglobin 0.4 %THgb (0.4-20.1); Methemoglobin 1.2 % (0.4-1.5)
[2021-03-19] MEDS: remdesivir 100 MG in sodium chloride 0.9% (100 ml) 100 ML IV (05:32)
--- NOTE | 2021-03-19 06:00 | XRR_ITS ---
PROCEDURE INFORMATION: Exam: XR Chest Exam date and time: 03/19/2021 6:00 AM Age: 66 years old Clinical indication: Dyspnea; Additional info: Covid TECHNIQUE: Imaging protocol: XR of the chest. Views: 1 view. COMPARISON: CR XR chest 1V portable [id number] 03/16/2021 7:37 AM FINDINGS: Lungs: Bilateral dense consolidations are present showing some improvement. Pleural spaces: Unremarkable. No pleural effusion. No pneumothorax. Heart/Mediastinum: Unremarkable. No cardiomegaly. Bones/joints: Unremarkable. XR/XR chest 1V portable [id number] IMPRESSION: Some interval improvement is seen.
[2021-03-19] MEDS: carvedilol 6.25 mg Tablet PO ×2 (08:43→20:13)
[2021-03-19] MEDS: potassium chloride ER 20 mEq Tablet 40 MEQ PO (08:43)
[2021-03-19] MEDS: ascorbic acid 500 mg Tablet 1000 MG PO ×2 (08:43→17:14)
[2021-03-19] MEDS: dexamethasone 4 mg/mL INJ 6 MG IVP (08:43)
[2021-03-19] MEDS: zinc gluconate 50 mg Tablet PO (08:43)
[2021-03-19] MEDS: benzonatate 100 mg Capsule PO ×3 (08:43→20:13)
[2021-03-19] MEDS: pantoprazole DR 40 mg Tablet PO (08:43)
[2021-03-19] MEDS: ferrous gluconate 324 mg Tablet PO ×2 (08:43→17:14)
--- NOTE | 2021-03-19 08:50 | DCPLANNER ---
Pg 2 of IM updated and reviewed with both pt's Spouse; Mireya and Son; Paco. Neither have questions. Both agree to call if they do.
[2021-03-19] MEDS: budesonide 0.5 mg/2 mL Neb INHALATION ×2 (09:19→19:59)
--- NOTE | 2021-03-19 09:32 | PC.CHAP ---
Pastoral Care Encounter/Spiritual Assessment Type of Contact [] Declined clothing manager visit [] Patient/Family/Request visit [] Outpatient visit [] Follow-up visit [] Physician referral [] Code/Alert []x Routine visit [] Staff referral [] Actively dying [] Patient sleeping [] Family support [] [] Out of room [] Palliative care [] [] Receiving care in room [] Pre-surgical visit [] Trauma [] Long length of stay [x] ICU visit [] Other: Relational/Emotional Strength [] Patient feels connected with others/family/visitors/staff [] Distress [] Loneliness/isolation [] Abandonment Spirituality of Patient [] Person of Sheron [] Attends Jain of their Sheron [] Believes in Prayer [] Reads Bible or Latter Day materials [] There are Spiritual issues to be addressed Inside Sales Director Interventions [x] Prayer [] Active listening [] Non-anxious presence [] Spiritual/emotional support [] Crisis/trauma care [] Spiritual counseling [] Bereavement support [] Provided bereavement packet [] Provided Bible/devotional materials [] Provided toy/stuffed animal, coloring book to patient or family member [] Provided Communion [] Anointing/[place] [] Salvation [x] Completed spiritual assessment [] Other: Impact on Illness or Injury [] Angry [] Fearful [] Anxious [] Often cries [] Exhaustion [] Unable to work [] Unable to attend mormon [] Unable to walk/stand [] Unable to read [] Unable to drive [] Unable to eat/drink [] Unable to sleep [] Unable to be with family [] Patient intubated [] Other: Summary Time spent with patient
--- NOTE | 2021-03-19 10:47 | P.PN_ITS ---
Subjective Subjective: Interval history: Overnight patient had episodes of difficulty in breathing for which she was placed on BiPAP. Post tracing on BiPAP she had vomited into the mask. I was told no concerns of aspiration at that time. Currently on examination patient is a lot more awake. States she is feeling better. Currently on examination on 6 L 75% FiO2 saturating 91%. Not working well with incentive spirometry and flutter valve. Discussed in detail for need of both for now. Patient verbalizes understanding. During my examination she worked with incentive spirometry getting it up to 750-1000 cc. Vitals/I&O/Wt Last Vital Signs Temp 98.2 F 03/19/21 08:00 Pulse 88 03/19/21 10:00 Resp 22 H 03/19/21 10:00 BP 135/70 03/19/21 10:00 Pulse Ox 92 03/19/21 10:00 03/18/21 03/19/21 03/19/21 22:59 06:59 14:59 Intake Total 910 / 1993.958 380 / 2373.958 790 / 790 Output Total 600 / 900 500 / 1400 150 / 150 Balance 310 / 1093.958 -120 / 973.958 640 / 640 Weight last 48 hrs Weight 88.224 kg Weight 88.314 kg Physical Exam Narrative: EXAM NARRATIVE: General: No acute distress, AO x3, heated high flow, anxious, tired HEENT: PERRLA, pupils bilaterally equal and reactive Chest: Normal vesicular breath sounds, b/l diffuse ronchi all over lung field. Equal good air entry bilaterally CVS: S1-S2 regular, no murmurs, no tachycardia, no gallops, no rubs Abdomen: Soft, nontender, no organomegaly, bowel sounds present Neuro: No focal deficits, no facial deformity, AO x3, power 5/5 in all limbs Urinary Catheter Management^: Garcia: Cath Placed During This Visit: yes Reason for Continuing Indwelling Catheter: Accurate Measurement of Urinary Output in Critically Ill Patients Urinary Catheter Date of Insertion: 03/17/21 Urinary Catheter Time of Insertion: 08:45 Data : 03/19/21 03:00 03/19/21 03:00 Micro: Microbiology 03/19/21 03:00 Legionella Urinary Antigen - Final Urine Catheterized 03/18/21 09:50 MRSA Culture - Final Nose A&P Assessment and plan (1) Pneumonia due to 2019-nCoV: Status: Acute (2) Acute respiratory failure with hypoxia: Status: Acute (3) Hyponatremia: Status: Acute (4) Mixed hyperlipidemia: Status: Chronic (5) GERD (gastroesophageal reflux disease): Status: Chronic Qualifiers: Esophagitis presence: esophagitis presence not specified Qualified Code(s): K21.9 - Gastro-esophageal reflux disease without esophagitis Acute respiratory distress hypoxemia due to COVID-19 pneumonia Post Actemra. Inflammatory markers trending down so we will hold off on second dose for now. Continue antiviral treatment with remdesivir for 5 days. Last dose on March 20. Dexamethasone 6 mg IV QD Duoneb q4h, budesonide bid. Incentive spirometry, flutter valve. Vit c, zinc, tessalon. Oxygen supplementation keeping saturation over 92%. Procal elevated. High likely of super imposed bacterial infection. Pro-Tigre trending down, MRSA swab, bacterial antigen, urine Legionella negative. Sputum culture growing yeast. Stop vancomycin. Continue with imipenem. Start patient on Diflucan 200 mg daily. C/w full dose lovenox as patient is critically sick. Contine to monitor inflammatory markers. Precedex for anxiety. No more ativan to avoid decrease respiratory drive. Keep patient net negative. Lasix 40 mg IV stat. Fluid restriction up to 1500 cc. Appreciate pulmonology recommendations. Paroxysmal Atrial Fibrillation - converted to NSR s/p Amiodarone bolus Continue with Coreg 6.25 mg twice daily. Lovenox full dose ECHO ordered HTN: No h/o HTN. Goal BP less than 140/90 mmhg. Blood pressure better controlled. Continue with Coreg 6.25 mg twice daily. We will continue to monitor if needed will add amlodipine. Acute Renal Failure - resolved Creatinine 1.5 - 0.9 Med rec done for nephrotoxic drug Monitor u/o Renal dosing of meds Hyponatremia Resolved Dyslipidemia Lipitor 40 mg PO daily Hold if worsening LFTs CMP in am GERD Protonix 40 mg PO daily DVT ppx Lovenox Full dose. FC Attestations Medical Necessity Statement*: Patient requires further hospitalization for management of ARDS due to COVID-19 pneumonia, superimposed bacterial pneumonia Critical Care Time: The high probability of a clinically significant, sudden or life threatening deterioration of the patient's [respiratory] system(s) required my full and direct attention, intervention and personal management. The critical care time is as shown. This time is in addition to time spent p erforming any reported procedures but includes the following: [x] Data and vital sign review and interpretation [x] Patient assessment, examination and intervention [x] Documentation [x] Medication orders and management Critical Care Time (min): 70 Coding Level of Care Code Acute Knowledge Management Advisor for g Fwd Diagnoses Pneumonia due to 2019-nCoV U07.1; J12.82 Acute respiratory failure with hypoxia J96.01 Hyponatremia E87.1 Mixed hyperlipidemia E78.2 GERD (gastroesophageal reflux disease) K21.9 Esophagitis presence: esophagitis presence not specified
[2021-03-19] MEDS: FUROsemide 10 mg/mL SDV 4mL 40 MG IVP (11:21)
[2021-03-19 14:04] LABS: Blood Gas Allen Test Pos; Blood Gas Sample Site Radial, right; Blood Gas Sample Type Arterial
--- NOTE | 2021-03-19 14:57 | PM.PN ---
Subjective Subjective: Interval history: - Patient seen at bedside today morning - overnight placed on bipap and pt had nausea and vomiting - later changed to high flow 60L and 90% and she reported being comfortable -Labs and imaging reviewed and the pertinent findings incorporated in assessment and plan Medications: Reviewed: Yes Vitals/I&O/Wt Last Vital Signs Temp 98.2 F 03/19/21 14:00 Pulse 93 03/19/21 14:00 Resp 22 H 03/19/21 14:00 BP 164/89 03/19/21 14:00 Pulse Ox 90 03/19/21 11:52 03/18/21 03/19/21 03/19/21 22:59 06:59 14:59 Intake Total 910 / 1993.958 380 / 2373.958 1030 / 1030 Output Total 600 / 900 500 / 1400 350 / 350 Balance 310 / 1093.958 -120 / 973.958 680 / 680 Weight last 48 hrs Weight 194 lb 8 oz Weight 194 lb 11.2 oz Physical Exam Narrative: EXAM NARRATIVE: General: alert, NAD on high flow 60 L and 90% HEENT: conj clear, EOMI, PERRL, mmm, Neck: supple, no meningismus Heme: no cervical LAP Pulmonary: CTAB, no wheezing, rhonchi, crackles Cardiovascular: rrr, nl s1s2, no mrg Abdomen: soft, nt, nd, no r/g, bs+ Extremities: pulses +, no edema, no c/c : no CVA tenderness Skin: intact, no rash MSK: no back or neck pain Neurologic: grossly intact Urinary Catheter Management^: Garcia: Cath Placed During This Visit: yes Reason for Continuing Indwelling Catheter: Accurate Measurement of Urinary Output in Critically Ill Patients Urinary Catheter Date of Insertion: 03/17/21 Urinary Catheter Time of Insertion: 08:45 Data : 03/19/21 03:00 03/19/21 03:00 Other Labs: Laboratory Results WBC 19.0 10^3/uL (4.0-10.0) H 03/19/21 03:00 RBC 3.87 10^6/uL (4.1-5.3) L 03/19/21 03:00 Hgb 11.5 g/dL (11.5-15.3) 03/19/21 03:00 Hct 34.5 % (37.0-47.0) L 03/19/21 03:00 MCV 89.1 fL (81-99) 03/19/21 03:00 MCH 29.7 pg (28.0-34.0) 03/19/21 03:00 MCHC 33.3 g/dL (30.0-36.0) 03/19/21 03:00 RDW 13.9 % (12.1-15.1) 03/19/21 03:00 Plt Count 403 10^3/cmm (130-400) H 03/19/21 03:00 MPV 10.7 fL (7.4-10.4) H 03/19/21 03:00 Neut % (Auto) 80.3 % 03/18/21 11:00 Lymph % (Auto) Not Reportable 03/19/21 03:00 [place] % (Auto) Not Reportable 03/19/21 03:00 Eos % (Auto) 0.0 % 03/18/21 11:00 Baso % (Auto) 0.0 % 03/18/21 11:00 Neut # (Auto) 17.18 10^3/uL (1.8-7.7) H 03/18/21 11:00 Lymph # (Auto) Not Reportable 03/19/21 03:00 [place] # (Auto) Not Reportable 03/19/21 03:00 Eos # (Auto) 0.0 10^3/uL (0.0-0.8) 03/18/21 11:00 Baso # (Auto) 0.0 10^3/uL (0.0-0.1) 03/18/21 11:00 Nucleated RBC % (auto) 0 % 03/18/21 11:00 Total Counted 100 (0-100) 03/19/21 03:00 Atypical Lymphs % 0.0 % (0-5) 03/19/21 03:00 Absolute Neutrophils 15.4 10^3/cmm (1.4-6.5) H 03/19/21 03:00 Segmented Neutrophils 70 % 03/19/21 03:00 Abs Segm Neuts (Man) 13.3 10/cmm (1.6-7.1) H 03/19/21 03:00 Band Neutrophils 11.0 % 03/19/21 03:00 Abs Band Neuts (Man) 2.1 10^3/cmm (0.0-1.2) H 03/19/21 03:00 Absolute Lymphocytes 1.3 10^3/cmm (1.2-3.4) 03/19/21 03:00 Lymphocytes (Manual) 7 % 03/19/21 03:00 Monocytes (Manual) 3.0 % 03/19/21 03:00 Absolute Monocytes 0.6 10^3/cmm (0.1-0.6) 03/19/21 03:00 Eosinophils (Manual) 0 % 03/19/21 03:00 Absolute Eosinophils 0.0 10^3/cmm (0.0-0.7) 03/19/21 03:00 Basophils (Manual) 0.0 % 03/19/21 03:00 Absolute Basophils 0.0 10^3/cmm (0.0-0.2) 03/19/21 03:00 Metamyelocytes 9.0 % 03/19/21 03:00 Nucleated RBCs # 0.0 /100WBC 03/18/21 11:00 Platelet Estimate Normal (Normal) 03/19/21 03:00 PT 14.40 SECONDS (12.1-14.9) 03/16/21 08:07 INR 1.09 (0.8-1.2) 03/16/21 08:07 D-Dimer 0.92 ug/mIFEU (0-0.59) H 03/19/21 03:00 Specimen Type Arterial 03/19/21 04:23 Sample Site Radial, right 03/19/21 04:23 ABG pH 7.44 (7.35-7.45) 03/19/21 04:23 ABG pCO2 32.1 mmHg (35-45) L 03/19/21 04:23 ABG pO2 66.5 mmHg (80.0-100.0) L 03/19/21 04:23 ABG HCO3 22.0 mmol/L (22-26) 03/19/21 04:23 ABG O2 Saturation 93.7 03/19/21 04:23 ABG Base Excess -1.5 mmol/L (-2.0-2.0) 03/19/21 04:23 Gurjit Test Pos 03/19/21 04:23 A-a O2 Gradient Not Reportable 03/19/21 04:23 Hematocrit 36.5 % (37-47) L 03/19/21 04:23 Hgb O2 Saturation Not Reportable 03/19/21 04:23 Carboxyhemoglobin 0.4 %THgb (0.4-20.1) 03/19/21 04:23 Methemoglobin 1.2 % (0.4-1.5) 03/19/21 04:23 Total Hemoglobin 11.9 g/dL (12-16) L 03/19/21 04:23 Sodium 143.0 mmol/L (131-143) 03/19/21 04:23 Potassium 3.2 mmol/L (3.5-5.0) L 03/19/21 04:23 Glucose 131.0 mg/dL (70-115) H 03/19/21 04:23 Ionized Calcium 1.2 mmol/L (1.1-1.4) 03/19/21 04:23 O2 Delivery Device [email or web address] 03/19/21 04:23 O2 Liters/Min 60.0 % 03/19/21 04:23 FiO2 90.0 % 03/19/21 04:23 Operations Boardman ID Hinja 03/19/21 04:23 Sodium 139 mmol/L (136-145) 03/19/21 03:00 Potassium 3.4 mmol/L (3.5-5.1) L 03/19/21 03:00 Chloride 103 mmol/L (98-107) 03/19/21 03:00 Carbon Dioxide 22 mmol/L (22-29) 03/19/21 03:00 Anion Gap 17.4 (5-19) 03/19/21 03:00 BUN 33 mg/dL (8-23) H 03/19/21 03:00 Creatinine 0.7 mg/dL (0.5-0.9) 03/19/21 03:00 GFR Calculation 83.7 mL/min (90-130) L 03/19/21 03:00 Glucose 114 mg/dL (65-115) 03/19/21 03:00 Estimat Average Glucose 117 03/19/21 03:00 Hemoglobin A1c 5.7 % (4.0-6.0) 03/19/21 03:00 Calculated Osmolality 296 mOsm/kg (285-295) H 03/19/21 03:00 Lactic Acid 3.4 mmol/L (0.5-2.2) H 03/16/21 07:30 Lactic Acid (Sepsis) 2.7 mmol/L (0.5-2.2) H 03/16/21 10:39 Lactate 1.3 mmol/L (0.5-2.2) 03/18/21 11:00 Calcium 8.7 mg/dL (8.5-10.5) 03/19/21 03:00 Iron 20 ug/dL (37-145) L 03/18/21 11:00 TIBC 160 mcg/dl 03/18/21 11:00 % Saturation 12.5 % (20-50) L 03/18/21 11:00 Unsat Iron Binding 140 ug/dL (112-347) 03/18/21 11:00 Ferritin 1282 ng/mL (15-150) H 03/19/21 03:00 Total Bilirubin 0.3 mg/dL (0.15-1.2) 03/19/21 03:00 AST 27 U/L (0-32) 03/19/21 03:00 ALT 24 U/L (0-33) 03/19/21 03:00 Alkaline Phosphatase 145 IU/L (35-105) H 03/19/21 03:00 Lactate Dehydrogenase 408 U/L (135-214) H 03/19/21 03:00 Creatine Kinase 54 U/L (26-192) 03/19/21 03:00 C-Reactive Protein 85.3 mg/L (0.0-4.9) H 03/19/21 03:00 NT-Pro-B Natriuret Pep 647 pg/mL (0-125) H 03/19/21 03:00 Total Protein 6.2 g/dL (6.6-8.7) L 03/19/21 03:00 Albumin 2.6 g/dL (3.5-5.2) L 03/19/21 03:00 Globulin 3.6 g/dL (1.3-4.6) 03/19/21 03:00 Procalcitonin 43.39 ng/mL (0-0.5) H 03/18/21 11:00 TSH 0.19 uIU/mL (0.27-4.20) L 03/18/21 11:00 Free T4 1.53 ng/dL (0.82-1.77) 03/18/21 11:00 Free T3 1.2 PG/ML (2.0-4.4) L 03/18/21 11:00 Urine Color Yellow (Yellow) 03/16/21 16:00 Urine Appearance Clear (CLEAR) 03/16/21 16:00 Urine pH 5 (5-7) 03/16/21 16:00 Ur Specific [place] 1.010 (1.005-1.030) 03/16/21 16:00 Urine Protein Neg (Negative) 03/16/21 16:00 Urine Glucose (UA) Norm (Normal) 03/16/21 16:00 Urine Ketones Negative (Negative) 03/16/21 16:00 Urine Blood Trace (Negative) H 03/16/21 16:00 Urine Nitrate Negative (Negative) 03/16/21 16:00 Urine Bilirubin Neg (Negative) 03/16/21 16:00 Urine Urobilinogen Norm mg/dL (Negative) 03/16/21 16:00 Ur Leukocyte Esterase Negative (Negative) 03/16/21 16:00 Urine RBC Rare /hpf (0-2) 03/16/21 16:00 Urine WBC 0-4 /hpf (0-5) H 03/16/21 16:00 Ur Squamous Epith Cells Rare /hpf (0-5) 03/16/21 16:00 Amorphous Sediment Not Reportable 03/16/21 16:00 Urine Bacteria Trace /hpf (NONE) 03/16/21 16:00 Urine Osmolality 230 mOsm/kg (50-1200) 03/16/21 16:00 Ur Random Sodium 22 mmol/L 03/16/21 16:00 Urine Creatinine 22 mg/dL (28-217) L 03/16/21 16:00 Vancomycin Trough 8.0 ug/mL (10-15) L 03/19/21 03:00 Nasal/Oral COVID-19 PCR Cancelled 03/16/21 08:35 SARS-CoV-2 RNA (RT-PCR) Detected (NOT DETECTED) A 03/16/21 08:35 SARS-CoV-2 Ag (Rapid) Negative (Negative) 03/16/21 08:35 Impressions Chest CTA 03/16/21 07:57 IMPRESSION: 1. No evidence of pulmonary embolism. 2. Severe multifocal pneumonia. Radiation Dose CTDIVOL = (mGy): DLP = 545.65 (mGy-cm) Chest X-Ray 03/19/21 06:00 IMPRESSION: Some interval improvement is seen. Micro: Microbiology 03/19/21 04:35 Gram Stain - Final Sputum - Expectorated Sputum 03/19/21 03:00 Bacterial Antigens - Final Urine,Clean Catch 03/19/21 03:00 Legionella Urinary Antigen - Final Urine Catheterized 03/18/21 09:50 MRSA Culture - Final Nose A&P Assessment and plan (1) ARDS (adult respiratory distress syndrome): Status: Acute (2) Acute respiratory failure with hypoxia: Status: Acute (3) Pneumonia due to 2019-nCoV: Status: Acute (4) Obesity (BMI 30-39.9): Status: Chronic (5) GERD (gastroesophageal reflux disease): Status: Chronic Qualifiers: Esophagitis presence: esophagitis presence not specified Qualified Code(s): K21.9 - Gastro-esophageal reflux disease without esophagitis (6) Hypokalemia: Status: Acute (7) Iron deficiency: Status: Acute (8) Increased anion gap metabolic acidosis: Status: Acute #Acute hypoxic respiratory failure secondary ARDS due to to COVID-19 pneumonia #Hypokalemia #High procalcitonin $ Fe deficiency - serum iron 20; % sat 12.5% -CTA 03/16/2021: No evidence of pulmonary embolism. Severe multifocal pneumonia. -COVID-19 PCR + 03/11/2021 at outside facility, -Afebrile last 24 hours, elevated WBC count, lactic acid, procalcitonin -Slightly improving LDH, ferritin, CRP, and [id number] every 48 hours -Continue Vancomycin; changed zosyn to imipenam -Urine Legionella, urine bacterial antigens MRSA nares, blood cultures negative -Sputum culture pending -Currently on Remdesivir 5 day protocol -Continue Dexamethasone 6 mg daily -AB.44/32/66/20 2/93% saturation on HFNC 60 L 90% -Continue DuoNeb nebulizations every 4 hours scheduled & budesonide 0.5 mg bid -Continue to titrate down FiO2 -BNP - 3482 >> 513; Echo 03/18/21: normal LVEF 68%, mlld LVH, Grade I/IV Diastolic dysfunction; Trace to mild mitral valve regurgitation. Mild mitral annular calcification. -Continue hemodynamic monitoring -Initially paroxysmal A. fib and given bolus of amiodarone and currently carvedilol 6.25 mg bid -Net +1.9 L since admission; -Normal renal function-Lasix40 mg IV push to keep net negative to even -Sodium 139, potassium 3.5, bicarb 22, corrected anion gap 20, - K3. 4-supplemented; Anion gap metabolic acidosis likely due to lactic acidosis -Monitor renal functions, electrolytes, input and output closely -Improved LFTs -Sugars well controlled; started on scale coverage -Regular diet ; PPI for GI prophylaxis -On lovenox for DVT prophylaxis -Feso4 324 mg BIDWM and IV Venofer 200 mg daily for iron deficiency Recommendations conveyed to hospitalist, RN, RT covering the patient Attestations Medical Necessity Statement*: ARDS due to COVID 19 Critical Care Time: The high probability of a clinically significant, sudden or life threatening deterioration of the patient's [Pulm, renal and infectious] system(s) required my full and direct attention, intervention and personal management. The critical care time is as shown. This time is in addition to time spent performing any reported procedures but includes the following: [x] Data and vital sign review and interpretation [x] Patient assessment, examination and intervention [x] Documentation [x] Medication orders and management Coding Level of Care Code Established Pt Acute Core Measures Abstractor for Chg Fwd Patient Type Established History Comprehensive Exam Comprehensive Medical Decision Making High Complexity Diagnoses ARDS (adult respiratory distress syndrome) J80 Acute respiratory failure with hypoxia J96.01 Pneumonia due to 2019-nCoV U07.1; J12.82 Obesity (BMI 30-39.9) E66.9 GERD (gastroesophageal reflux disease) K21.9 Esophagitis presence: esophagitis presence not specified Hypokalemia E87.6 Iron deficiency E61.1 Increased anion gap metabolic acidosis E87.2 Time Spent (min) 45
[2021-03-19] MEDS: enoxaparin 100 mg/mL Syringe 90 MG SUBCUT (15:19)
[2021-03-19] MEDS: iron sucrose 200 MG in sodium chloride 0.9% (100 ml) 100 ML 220 MG IV (15:40)
[2021-03-19] MEDS: HYDROcodone-acetaminophen 5-325 mg Tablet 1 TAB PO (16:06)
[2021-03-19] MEDS: fluconazole 100 mg Tablet 200 MG PO (17:34)
[2021-03-20] VITALS (57 sets, daily range): BP systolic 120–173; BP diastolic 75–127; PULSE 60–99; RESP 12–32; TEMP 36.4–36.9; O2SAT 86–95
[2021-03-20] MEDS: ipratropium-albuterol 3 mL Neb INHALATION ×6 (03:31→23:14)
[2021-03-20] MEDS: enoxaparin 100 mg/mL Syringe 90 MG SUBCUT ×2 (04:24→15:04)
[2021-03-20 04:57] LABS: ABG PCO2 35.3 mmHg (35-45); ABG PH Result 7.48 (7.35-7.45); Alveolar-Arterial Oxygen Gradi 45.6 mmHg (5-10); Arterial Blood Gas Hematocrit 37.2 % (37-47); Base Excess ABG 2.6 mmol/L (-2.0-2.0); Blood Gas Sample Site Brachial, right; Blood Gas Sample Type Arterial; Carboxyhemoglobin 0.1 %THgb (0.4-20.1); HGB O2 Sat 93.7 % (95-100); Ionized Calcium Level - ABG 1.2 mmol/L (1.1-1.4); Methemoglobin 0.8 % (0.4-1.5); Oxygen Saturation ABG 94.6; PO2 ABG 69.1 mmHg (80.0-100.0); Potassium Level - ABG 3.5 mmol/L (3.5-5.0); Total Hemoglobin 12.1 g/dL (12-16)
[2021-03-20 05:34] LABS: Basophils % 0.1 %; Hematocrit 34.6 % (37.0-47.0); Hemoglobin 11.7 g/dL (11.5-15.3); Lymphocytes # 1.1 10^3/uL (0.8-4.8); Mean Corpuscular HGB Conc 33.8 g/dL (30.0-36.0); Mean Corpuscular Hemoglobin 30.1 pg (28.0-34.0); Mean Corpuscular Volume 88.9 fL (81-99); Mean Platelet Volume 10.6 fL (7.4-10.4); Monocytes % 6.6 %; Neutrophils # 10.88 10^3/uL (1.8-7.7); Neutrophils % 72.8 %; Nucleated Red Blood Cells % 0 %; Platelet Count 382 10^3/cmm (130-400); Red Blood Count 3.89 10^6/uL (4.1-5.3); Red Cell Distribution Width 14.1 % (12.1-15.1); White Blood Count 14.9 10^3/uL (4.0-10.0)
[2021-03-20 05:54] LABS: D Dimer 0.77 ug/mIFEU (0-0.59)
[2021-03-20] MEDS: remdesivir 100 MG in sodium chloride 0.9% (100 ml) 100 ML IV (05:55)
[2021-03-20 05:59] LABS: Slide Review Slide Review Perform
[2021-03-20 06:00] LABS: Alanine Aminotransferase 23 U/L (0-33); Albumin Level 2.7 g/dL (3.5-5.2); Alkaline Phosphatase 117 IU/L (35-105); Anion Gap 13.7 (5-19); Aspartate Amino Transferase 23 U/L (0-32); Blood Urea Nitrogen 26 mg/dL (8-23); C Reactive Protein 46.5 mg/L (0.0-4.9); Calcium 8.7 mg/dL (8.5-10.5); Carbon Dioxide 25 mmol/L (22-29); Chloride 104 mmol/L (98-107); Creatine Phosphokinase 40 U/L (26-192); Globulin 3.3 g/dL (1.3-4.6); Glucose 158 mg/dL (65-115); NT Pro B Type Natriuretic Pept 529 pg/mL (0-125); Osmolality Calculated 296 mOsm/kg (285-295); Potassium 3.7 mmol/L (3.5-5.1); Sodium 139 mmol/L (136-145); Total Bilirubin 0.5 mg/dL (0.15-1.2)
[2021-03-20 06:23] LABS: Ferritin 1603 ng/mL (15-150)
--- NOTE | 2021-03-20 06:29 | PC.NURSE ---
ASSUMING CARE 1900 Patient resting in bed on HHFNC at 60L and 75%. Alert and oriented x 4. Garcia catheter in place and draining. No issues at this time.
--- NOTE | 2021-03-20 06:30 | PC.NURSE ---
SHIFT SUMMARY Patient is resting in bed on HHFNC at 55L and 60%. Alert and oriented x 4. Patient rested well throughout the shift and states she rested better than she has in a while. 450 mL tea colored urine output. Oxygen saturations averaging 94-95% most of shift. Received 4/4 doses of remdesevir this AM. No issues throughout the night.
[2021-03-20 06:46] LABS: Lactate Dehydrogenase 461 U/L (135-214)
[2021-03-20] MEDS: zinc gluconate 50 mg Tablet PO (08:37)
[2021-03-20] MEDS: ferrous gluconate 324 mg Tablet PO ×2 (08:37→17:04)
[2021-03-20] MEDS: fluconazole 100 mg Tablet 200 MG PO (08:37)
[2021-03-20] MEDS: pantoprazole DR 40 mg Tablet PO (08:38)
[2021-03-20] MEDS: dexamethasone 4 mg/mL INJ 6 MG IVP (08:38)
[2021-03-20] MEDS: ascorbic acid 500 mg Tablet 1000 MG PO ×2 (08:38→17:04)
[2021-03-20] MEDS: benzonatate 100 mg Capsule PO ×3 (08:38→21:02)
[2021-03-20] MEDS: carvedilol 6.25 mg Tablet PO ×2 (08:39→21:02)
[2021-03-20] MEDS: budesonide 0.5 mg/2 mL Neb INHALATION ×2 (08:45→19:57)
--- NOTE | 2021-03-20 09:40 | PC.CHAP ---
Pastoral Care Encounter/Spiritual Assessment Type of Contact [] Declined pick up worker visit [] Patient/Family/Request visit [] Outpatient visit [] Follow-up visit [] Physician referral [] Code/Alert [x] Routine visit [] Staff referral [] Actively dying [] Patient sleeping [] Family support [] [] Out of room [] Palliative care [] [] Receiving care in room [] Pre-surgical visit [] Trauma [] Long length of stay [x] ICU visit [x] Other: isolated Relational/Emotional Strength [] Patient feels connected with others/family/visitors/staff [] Distress [] Loneliness/isolation [] Abandonment Spirituality of Patient [] Person of Sheron [] Attends Jew of their Sheron [] Believes in Prayer [] Reads Bible or Restoration materials [] There are Spiritual issues to be addressed Stem Frazer Interventions [x] Prayer [] Active listening [] Non-anxious presence [] Spiritual/emotional support [] Crisis/trauma care [] Spiritual counseling [] Bereavement support [] Provided bereavement packet [] Provided Bible/devotional materials [] Provided toy/stuffed animal, coloring book to patient or family member [] Provided Communion [] Anointing/Moody [] Salvation [x] Completed spiritual assessment [] Other: Impact on Illness or Injury [] Angry [] Fearful [] Anxious [] Often cries [] Exhaustion [] Unable to work [] Unable to attend mandaen [] Unable to walk/stand [] Unable to read [] Unable to drive [] Unable to eat/drink [] Unable to sleep [] Unable to be with family [] Patient intubated [] Other: Summary Time spent with patient
--- NOTE | 2021-03-20 10:35 | PC.NURSE ---
Pt report received this am. Pt AAOx4, makes all needs known. HFNC in use. 55L, 55% at this time. No s/s of SOB. No c/o pain. Ambulated in room with PT this AM and sat on side of bed for breakfast. No other issues noted.
[2021-03-20 11:27] LABS: Procalcitonin 6.88 ng/mL (0-0.5)
[2021-03-20] MEDS: iron sucrose 200 MG in sodium chloride 0.9% (100 ml) 100 ML 220 MG IV (15:03)
--- NOTE | 2021-03-20 15:15 | P.PN_ITS ---
Subjective Subjective: Interval history: . Patient continues to improve. 50 L 65% saturating 95%. She states she is feeling better. Working well with incentive spirometry and flutter valve now. Denies any nausea vomiting, headache. States appetite is improving. Heated high flow Medications: Reviewed: Yes Vitals/I&O/Wt Last Vital Signs Temp 97.8 F 03/20/21 12:00 Pulse 76 03/20/21 15:12 Resp 20 H 03/20/21 15:10 BP 142/107 03/20/21 14:00 Pulse Ox 94 03/20/21 15:10 03/20/21 03/20/21 03/20/21 06:59 14:59 22:59 Intake Total 220 / 2410 1160 / 1160 Output Total 450 / 1250 Balance -230 / 1160 1160 / 1160 Weight last 48 hrs Weight 87.906 kg Weight 88.224 kg Physical Exam Narrative: EXAM NARRATIVE: General: No acute distress, AO x3, heated high flow, feeling better. HEENT: PERRLA, pupils bilaterally equal and reactive Chest: Normal vesicular breath sounds, b/l diffuse ronchi all over lung field. Equal good air entry bilaterally CVS: S1-S2 regular, no murmurs, no tachycardia, no gallops, no rubs Abdomen: Soft, nontender, no organomegaly, bowel sounds present Neuro: No focal deficits, no facial deformity, AO x3, power 5/5 in all limbs Urinary Catheter Management^: Garcia: Cath Placed During This Visit: yes Reason for Continuing Indwelling Catheter: Accurate Measurement of Urinary Output in Critically Ill Patients Urinary Catheter Date of Insertion: 03/17/21 Urinary Catheter Time of Insertion: 08:45 Data : 03/20/21 04:30 03/20/21 04:30 Micro: Microbiology 03/19/21 04:35 Gram Stain - Final Sputum - Expectorated Sputum Sputum Culture - Preliminary Yeast species 03/19/21 03:00 Urine Culture - Preliminary Urine Catheterized 03/19/21 03:00 Bacterial Antigens - Final Urine,Clean Catch A&P Assessment and plan (1) Pneumonia due to 2019-nCoV: Status: Acute (2) Acute respiratory failure with hypoxia: Status: Acute (3) Hyponatremia: Status: Acute (4) Mixed hyperlipidemia: Status: Chronic (5) GERD (gastroesophageal reflux disease): Status: Chronic Qualifiers: Esophagitis presence: esophagitis presence not specified Qualified Code(s): K21.9 - Gastro-esophageal reflux disease without esophagitis Acute respiratory distress hypoxemia due to COVID-19 pneumonia Post Actemra. Inflammatory markers trending down so we will hold off on second dose for now. Continue antiviral treatment with remdesivir for 5 days. Last dose on March 20. Dexamethasone 6 mg IV QD Duoneb q4h, budesonide bid. Incentive spirometry, flutter valve. Vit c, zinc, tessalon. Oxygen supplementation keeping saturation over 92%. Procal elevated. High likely of super imposed bacterial infection. Pro-Tigre trending down, MRSA swab, bacterial antigen, urine Legionella negative. Sputum culture growing yeast. Stop vancomycin. Continue with imipenem and Diflucan 200 mg daily. C/w full dose lovenox as patient is critically sick. Patient will most likely need 14 days of anticoagulation post discharge. Contine to monitor inflammatory markers. Precedex for anxiety. No more ativan to avoid decrease respiratory drive. Echocardiogram done earlier in the admission shows an EF of 68% with grade 1 piter stolic dysfunction, mild MR. Keep patient net negative. Fluid restriction 1500 cc. Overall patient is 3.5 L positive since admission. Start patient on Lasix 20 mg oral daily. Appreciate pulmonology recommendations. Paroxysmal Atrial Fibrillation - converted to NSR s/p Amiodarone bolus Continue with Coreg 6.25 mg twice daily. Lovenox full dose HTN: No h/o HTN. Goal BP less than 140/90 mmhg. Blood pressure better controlled. Continue with Coreg 6.25 mg twice daily. We will continue to monitor if needed will add amlodipine. Acute Renal Failure - resolved Creatinine 1.5 - 0.9 Med rec done for nephrotoxic drug Monitor u/o Renal dosing of meds Hyponatremia Resolved Dyslipidemia Lipitor 40 mg PO daily Hold if worsening LFTs CMP in am GERD Protonix 40 mg PO daily DVT ppx Lovenox Full dose. FC GI soft diet. Attestations Medical Necessity Statement*: Patient requires further hospitalization For management of resolving ARDS because of COVID-19 pneumonia Time Spent in Patient Care: Greater than 35 minutes (>than 50% of time spent in counselling and/or direct pt care on unit) . Coding Level of Care Code Acute Belt Press Operator for Rosalee Kebede Diagnoses Pneumonia due to 2019-nCoV U07.1; J12.82 Acute respiratory failure with hypoxia J96.01 Hyponatremia E87.1 Mixed hyperlipidemia E78.2 GERD (gastroesophageal reflux disease) K21.9 Esophagitis presence: esophagitis presence not specified
[2021-03-20] MEDS: FUROsemide 20 mg Tablet PO (15:34)
--- NOTE | 2021-03-20 18:12 | PC.NURSE ---
Pt resting in bed. No issues noted. O2 down to 40%, tolerating well. Pt up to side of bed for all meals. Will monitor.
[2021-03-20] MEDS: HYDROcodone-acetaminophen 5-325 mg Tablet 1 TAB PO (21:03)
--- NOTE | 2021-03-20 21:16 | PM.PN ---
Subjective Subjective: Interval history: -Patient seen at bedside today morning -Sitting comfortably and having breakfast -FiO2 on HF NC came down to 65% from 90% yesterday -Still complaining of some discomfort during breathing -Labs and imaging reviewed and pertinent findings incorporated in assessment and plan Medications: Reviewed: Yes Vitals/I&O/Wt Last Vital Signs Temp 98.4 F 03/20/21 16:00 Pulse 88 03/20/21 20:10 Resp 21 H 03/20/21 19:57 BP 120/75 03/20/21 18:00 Pulse Ox 90 03/20/21 19:57 03/20/21 03/20/21 03/20/21 06:59 14:59 22:59 Intake Total 220 / 2410 1160 / 1160 690 / 1850 Output Total 450 / 1250 400 / 400 Balance -230 / 1160 1160 / 1160 290 / 1450 Weight last 48 hrs Weight 193 lb 12.8 oz Weight 194 lb 8 oz Physical Exam Narrative: EXAM NARRATIVE: General: alert, NAD on high flow 60 L and 90% HEENT: conj clear, EOMI, PERRL, mmm, Neck: supple, no meningismus Heme: no cervical LAP Pulmonary: CTAB, no wheezing, rhonchi, crackles Cardiovascular: rrr, nl s1s2, no mrg Abdomen: soft, nt, nd, no r/g, bs+ Extremities: pulses +, no edema, no c/c : no CVA tenderness Skin: intact, no rash MSK: no back or neck pain Neurologic: grossly intact Urinary Catheter Management^: Garcia: Cath Placed During This Visit: yes Reason for Continuing Indwelling Catheter: Accurate Measurement of Urinary Output in Critically Ill Patients Urinary Catheter Date of Insertion: 03/17/21 Urinary Catheter Time of Insertion: 08:45 Data : 03/20/21 04:30 03/20/21 04:30 Other Labs: Laboratory Results WBC 14.9 10^3/uL (4.0-10.0) H 03/20/21 04:30 RBC 3.89 10^6/uL (4.1-5.3) L 03/20/21 04:30 Hgb 11.7 g/dL (11.5-15.3) 03/20/21 04:30 Hct 34.6 % (37.0-47.0) L 03/20/21 04:30 MCV 88.9 fL (81-99) 03/20/21 04:30 MCH 30.1 pg (28.0-34.0) 03/20/21 04:30 MCHC 33.8 g/dL (30.0-36.0) 03/20/21 04:30 RDW 14.1 % (12.1-15.1) 03/20/21 04:30 Plt Count 382 10^3/cmm (130-400) 03/20/21 04:30 MPV 10.6 fL (7.4-10.4) H 03/20/21 04:30 Neut % (Auto) 72.8 % 03/20/21 04:30 Lymph % (Auto) 7.0 % 03/20/21 04:30 [place] % (Auto) 6.6 % 03/20/21 04:30 Eos % (Auto) 0.0 % 03/20/21 04:30 Baso % (Auto) 0.1 % 03/20/21 04:30 Neut # (Auto) 10.88 10^3/uL (1.8-7.7) H 03/20/21 04:30 Lymph # (Auto) 1.1 10^3/uL (0.8-4.8) 03/20/21 04:30 [place] # (Auto) 1.0 10^3/uL (0.2-0.9) H 03/20/21 04:30 Eos # (Auto) 0.0 10^3/uL (0.0-0.8) 03/20/21 04:30 Baso # (Auto) 0.0 10^3/uL (0.0-0.1) 03/20/21 04:30 Nucleated RBC % (auto) 0 % 03/20/21 04:30 Total Counted 100 (0-100) 03/19/21 03:00 Atypical Lymphs % 0.0 % (0-5) 03/19/21 03:00 Absolute Neutrophils 15.4 10^3/cmm (1.4-6.5) H 03/19/21 03:00 Segmented Neutrophils 70 % 03/19/21 03:00 Abs Segm Neuts (Man) 13.3 10/cmm (1.6-7.1) H 03/19/21 03:00 Band Neutrophils 11.0 % 03/19/21 03:00 Abs Band Neuts (Man) 2.1 10^3/cmm (0.0-1.2) H 03/19/21 03:00 Absolute Lymphocytes 1.3 10^3/cmm (1.2-3.4) 03/19/21 03:00 Lymphocytes (Manual) 7 % 03/19/21 03:00 Monocytes (Manual) 3.0 % 03/19/21 03:00 Absolute Monocytes 0.6 10^3/cmm (0.1-0.6) 03/19/21 03:00 Eosinophils (Manual) 0 % 03/19/21 03:00 Absolute Eosinophils 0.0 10^3/cmm (0.0-0.7) 03/19/21 03:00 Basophils (Manual) 0.0 % 03/19/21 03:00 Absolute Basophils 0.0 10^3/cmm (0.0-0.2) 03/19/21 03:00 Metamyelocytes 9.0 % 03/19/21 03:00 Nucleated RBCs # 0.0 /100WBC 03/20/21 04:30 Platelet Estimate Normal (Normal) 03/19/21 03:00 PT 14.40 SECONDS (12.1-14.9) 03/16/21 08:07 INR 1.09 (0.8-1.2) 03/16/21 08:07 D-Dimer 0.77 ug/mIFEU (0-0.59) H 03/20/21 04:30 Specimen Type Arterial 03/20/21 04:37 Sample Site Brachial, right 03/20/21 04:37 ABG pH 7.48 (7.35-7.45) H 03/20/21 04:37 ABG pCO2 35.3 mmHg (35-45) 03/20/21 04:37 ABG pO2 69.1 mmHg (80.0-100.0) L 03/20/21 04:37 ABG HCO3 26.0 mmol/L (22-26) 03/20/21 04:37 ABG O2 Saturation 94.6 03/20/21 04:37 ABG Base Excess 2.6 mmol/L (-2.0-2.0) H 03/20/21 04:37 Gurjit Test N/a 03/20/21 04:37 A-a O2 Gradient 45.6 mmHg (5-10) H 03/20/21 04:37 Hematocrit 37.2 % (37-47) 03/20/21 04:37 Hgb O2 Saturation 93.7 % (95-100) L 03/20/21 04:37 Carboxyhemoglobin 0.1 %THgb (0.4-20.1) L 03/20/21 04:37 Methemoglobin 0.8 % (0.4-1.5) 03/20/21 04:37 Total Hemoglobin 12.1 g/dL (12-16) 03/20/21 04:37 Sodium 140.0 mmol/L (131-143) 03/20/21 04:37 Potassium 3.5 mmol/L (3.5-5.0) 03/20/21 04:37 Glucose 162.0 mg/dL (70-115) H 03/20/21 04:37 Ionized Calcium 1.2 mmol/L (1.1-1.4) 03/20/21 04:37 O2 Delivery Device Not Reportable 03/20/21 04:37 O2 Liters/Min 55.0 % 03/20/21 04:37 FiO2 65.0 % 03/20/21 04:37 Manager Strategic Marketing ID [email or web address] 03/20/21 04:37 Sodium 139 mmol/L (136-145) 03/20/21 04:30 Potassium 3.7 mmol/L (3.5-5.1) 03/20/21 04:30 Chloride 104 mmol/L (98-107) 03/20/21 04:30 Carbon Dioxide 25 mmol/L (22-29) 03/20/21 04:30 Anion Gap 13.7 (5-19) 03/20/21 04:30 BUN 26 mg/dL (8-23) H 03/20/21 04:30 Creatinine 0.6 mg/dL (0.5-0.9) 03/20/21 04:30 GFR Calculation 100.0 mL/min (90-130) 03/20/21 04:30 Glucose 158 mg/dL (65-115) H 03/20/21 04:30 Estimat Average Glucose 117 03/19/21 03:00 Hemoglobin A1c 5.7 % (4.0-6.0) 03/19/21 03:00 Calculated Osmolality 296 mOsm/kg (285-295) H 03/20/21 04:30 Lactic Acid 3.4 mmol/L (0.5-2.2) H 03/16/21 07:30 Lactic Acid (Sepsis) 2.7 mmol/L (0.5-2.2) H 03/16/21 10:39 Lactate 1.3 mmol/L (0.5-2.2) 03/18/21 11:00 Calcium 8.7 mg/dL (8.5-10.5) 03/20/21 04:30 Iron 20 ug/dL (37-145) L 03/18/21 11:00 TIBC 160 mcg/dl 03/18/21 11:00 % Saturation 12.5 % (20-50) L 03/18/21 11:00 Unsat Iron Binding 140 ug/dL (112-347) 03/18/21 11:00 Ferritin 1603 ng/mL (15-150) H 03/20/21 04:30 Total Bilirubin 0.5 mg/dL (0.15-1.2) 03/20/21 04:30 AST 23 U/L (0-32) 03/20/21 04:30 ALT 23 U/L (0-33) 03/20/21 04:30 Alkaline Phosphatase 117 IU/L (35-105) H 03/20/21 04:30 Lactate Dehydrogenase 461 U/L (135-214) H 03/20/21 04:30 Creatine Kinase 40 U/L (26-192) 03/20/21 04:30 C-Reactive Protein 46.5 mg/L (0.0-4.9) H 03/20/21 04:30 NT-Pro-B Natriuret Pep 529 pg/mL (0-125) H 03/20/21 04:30 Total Protein 6.0 g/dL (6.6-8.7) L 03/20/21 04:30 Albumin 2.7 g/dL (3.5-5.2) L 03/20/21 04:30 Globulin 3.3 g/dL (1.3-4.6) 03/20/21 04:30 Procalcitonin 6.88 ng/mL (0-0.5) H 03/20/21 04:30 TSH 0.19 uIU/mL (0.27-4.20) L 03/18/21 11:00 Free T4 1.53 ng/dL (0.82-1.77) 03/18/21 11:00 Free T3 1.2 PG/ML (2.0-4.4) L 03/18/21 11:00 Urine Color Yellow (Yellow) 03/16/21 16:00 Urine Appearance Clear (CLEAR) 03/16/21 16:00 Urine pH 5 (5-7) 03/16/21 16:00 Ur Specific [place] 1.010 (1.005-1.030) 03/16/21 16:00 Urine Protein Neg (Negative) 03/16/21 16:00 Urine Glucose (UA) Norm (Normal) 03/16/21 16:00 Urine Ketones Negative (Negative) 03/16/21 16:00 Urine Blood Trace (Negative) H 03/16/21 16:00 Urine Nitrate Negative (Negative) 03/16/21 16:00 Urine Bilirubin Neg (Negative) 03/16/21 16:00 Urine Urobilinogen Norm mg/dL (Negative) 03/16/21 16:00 Ur Leukocyte Esterase Negative (Negative) 03/16/21 16:00 Urine RBC Rare /hpf (0-2) 03/16/21 16:00 Urine WBC 0-4 /hpf (0-5) H 03/16/21 16:00 Ur Squamous Epith Cells Rare /hpf (0-5) 03/16/21 16:00 Amorphous Sediment Not Reportable 03/16/21 16:00 Urine Bacteria Trace /hpf (NONE) 03/16/21 16:00 Urine Osmolality 230 mOsm/kg (50-1200) 03/16/21 16:00 Ur Random Sodium 22 mmol/L 03/16/21 16:00 Urine Creatinine 22 mg/dL (28-217) L 03/16/21 16:00 Vancomycin Trough 8.0 ug/mL (10-15) L 03/19/21 03:00 Nasal/Oral COVID-19 PCR Cancelled 03/16/21 08:35 SARS-CoV-2 RNA (RT-PCR) Detected (NOT DETECTED) A 03/16/21 08:35 SARS-CoV-2 Ag (Rapid) Negative (Negative) 03/16/21 08:35 Impressions Chest CTA 03/16/21 07:57 IMPRESSION: 1. No evidence of pulmonary embolism. 2. Severe multifocal pneumonia. Radiation Dose CTDIVOL = (mGy): DLP = 545.65 (mGy-cm) Chest X-Ray 03/19/21 06:00 IMPRESSION: Some interval improvement is seen. Micro: Microbiology 03/19/21 04:35 Gram Stain - Final Sputum - Expectorated Sputum Sputum Culture - Preliminary Yeast species 03/19/21 03:00 Urine Culture - Preliminary Urine Catheterized A&P Assessment and plan (1) ARDS (adult respiratory distress syndrome): Status: Acute (2) Acute respiratory failure with hypoxia: Status: Acute (3) Pneumonia due to 2019-nCoV: Status: Acute (4) Obesity (BMI 30-39.9): Status: Chronic (5) GERD (gastroesophageal reflux disease): Status: Chronic Qualifiers: Esophagitis presence: esophagitis presence not specified Qualified Code(s): K21.9 - Gastro-esophageal reflux disease without esophagitis (6) Hypokalemia: Status: Acute (7) Iron deficiency: Status: Acute (8) Increased anion gap metabolic acidosis: Status: Acute #Acute hypoxic respiratory failure secondary ARDS due to to COVID-19 pneumonia #Hypokalemia #High procalcitonin $ Fe deficiency - serum iron 20; % sat 12.5% -CTA 03/16/2021: No evidence of pulmonary embolism. Severe multifocal pneumonia. -COVID-19 PCR + 03/11/2021 at outside facility, -Afebrile since admission, and improving, lactic acid, procalcitonin -Slightly improving LDH, ferritin, CRP, and [id number] every 48 hours -Continue Vancomycin; changed zosyn to imipenam -Urine Legionella, urine bacterial antigens MRSA nares, blood cultures negative -Sputum culture-positive for yeast species-identification pending-started on fluconazole 200 mg p.o. daily -Completed 5 days of remdesivir ; received 1 dose of Tocilizumab -Continue Dexamethasone 6 mg daily -AB.4 /69/20 6/94% saturation on HFNC 55 L and 65% -Continue DuoNeb nebulizations every 4 hours scheduled & budesonide 0.5 mg bid -Continue to titrate down FiO2 -BNP - 3482 >> 513; Echo 03/18/21: normal LVEF 68%, mlld LVH, Grade I/IV Diastolic dysfunction; Trace to mild mitral valve regurgitation. Mild mitral annular calcification. -Continue hemodynamic monitoring -Initially paroxysmal A. fib and given bolus of amiodarone and currently carvedilol 6.25 mg bid -Net + 3.8 L since admission; -Normal renal function-Lasix 20 mg p.o. daily to keep net negative to even -Sodium 139, potassium 3.7, bicarb 25, corrected anion gap 16, -Improving anion gap metabolic acidosis likely due to lactic acidosis -Monitor renal functions, electrolytes, input and output closely -Improved LFTs -Sugars well controlled; started on scale coverage -Regular diet ; PPI for GI prophylaxis -On lovenox for DVT prophylaxis -Feso4 324 mg BIDWM and IV Venofer 200 mg daily for iron deficiency Recommendations conveyed to hospitalist, RN, RT covering the patient Attestations Medical Necessity Statement*: Acute hypoxic respiratory failure secondary to ARDS due to COVID 19 and possible bacterial infection Critical Care Time: The high probability of a clinically significant, sudden or life threatening deterioration of the patient's [Pulm, renal and infectious] system(s) required my full and direct attention, intervention and personal management. The critical care time is as shown. 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
[2021-03-21] VITALS (44 sets, daily range): BP systolic 93–172; BP diastolic 49–107; PULSE 67–92; RESP 14–28; TEMP 36.4–37; O2SAT 88–94
[2021-03-21] MEDS: ipratropium-albuterol 3 mL Neb INHALATION ×6 (03:21→23:33)
[2021-03-21] MEDS: enoxaparin 100 mg/mL Syringe 90 MG SUBCUT ×2 (04:01→14:41)
[2021-03-21 05:10] LABS: Hematocrit 34.4 % (37.0-47.0); Hemoglobin 11.6 g/dL (11.5-15.3); Mean Corpuscular HGB Conc 33.7 g/dL (30.0-36.0); Mean Corpuscular Hemoglobin 30.1 pg (28.0-34.0); Mean Corpuscular Volume 89.1 fL (81-99); Mean Platelet Volume 10.1 fL (7.4-10.4); Platelet Count 435 10^3/cmm (130-400); Red Blood Count 3.86 10^6/uL (4.1-5.3); Red Cell Distribution Width 13.9 % (12.1-15.1); White Blood Count 14.7 10^3/uL (4.0-10.0)
--- NOTE | 2021-03-21 05:12 | PC.NURSE ---
Shift Summary Patient was moved from room 10 to room 7 for negative pressure and to share next door with another Covid positive patient. Patient is upset that her home high blood pressure med has not been restarted yet. She seems appropriate and cooperative only complained of pain one time in the night. She had been up early on in the night but has since been resting most of the time. She is tolerating the high flow well.
[2021-03-21 05:18] LABS: Fibrinogen 539 mg/dL (174-498)
[2021-03-21 05:24] LABS: D Dimer 0.61 ug/mIFEU (0-0.59)
[2021-03-21 05:34] LABS: Absolute Neutrophil 10.7 10^3/cmm (1.4-6.5); Absolute Segmented Neutrophil 9.6 10/cmm (1.6-7.1); Band Neutrophils Absolute 1.2 10^3/cmm (0.0-1.2); Eosinophils 0 %; Lymphocytes 8 %; Lymphocytes Absolute 1.5 10^3/cmm (1.2-3.4); Monocytes Absolute 1.3 10^3/cmm (0.1-0.6); Platelet Estimate Normal (Normal); Segmented Neutrophils 65 %; Slide Review Slide Review Perform; Total Cells Counted 100 (0-100)
[2021-03-21 05:37] LABS: Alanine Aminotransferase 19 U/L (0-33); Albumin Level 2.4 g/dL (3.5-5.2); Alkaline Phosphatase 97 IU/L (35-105); Anion Gap 10.4 (5-19); Aspartate Amino Transferase 17 U/L (0-32); Blood Urea Nitrogen 22 mg/dL (8-23); C Reactive Protein 28.5 mg/L (0.0-4.9); Calcium 8.3 mg/dL (8.5-10.5); Carbon Dioxide 27 mmol/L (22-29); Chloride 103 mmol/L (98-107); Creatine Phosphokinase 41 U/L (26-192); Globulin 3.1 g/dL (1.3-4.6); Glomerular Filtration Rate 123.4 mL/min (90-130); Glucose 135 mg/dL (65-115); Lactate Dehydrogenase 280 U/L (135-214); NT Pro B Type Natriuretic Pept 659 pg/mL (0-125); Osmolality Calculated 289 mOsm/kg (285-295); Potassium 3.4 mmol/L (3.5-5.1); Sodium 137 mmol/L (136-145); Total Bilirubin 0.5 mg/dL (0.15-1.2); Total Protein 5.5 g/dL (6.6-8.7)
[2021-03-21 05:54] LABS: Ferritin 1528 ng/mL (15-150)
--- NOTE | 2021-03-21 06:00 | XR_ITS ---
WS: [id number] Portable AP semiupright chest, 03/21/2021 Clinical Data: covid Comparison: Portable chest, 03/19/2021. Findings: The bilateral opacities have diminished moderately. The heart remains enlarged. No effusion or pneumothorax is seen. Monitor leads are on the chest wall. XR/XR chest 1V portable [id number] Impression: 1. Decrease in bilateral pulmonary opacities. 2. Cardiomegaly.
[2021-03-21 06:16] LABS: ABG PH Result 7.52 (7.35-7.45); Arterial Blood Gas Hematocrit 36.6 % (37-47); Base Excess ABG 4.1 mmol/L (-2.0-2.0); Blood Gas Sample Type Arterial; Carboxyhemoglobin 0.5 %THgb (0.4-20.1); HCO3 ABG 26.8 mmol/L (22-26); HGB O2 Sat 91.4 % (95-100); Ionized Calcium Level - ABG 1.2 mmol/L (1.1-1.4); Methemoglobin 0.6 % (0.4-1.5); Oxygen Saturation ABG 92.5; PO2 ABG 59.6 mmHg (80.0-100.0); Potassium Level - ABG 3.3 mmol/L (3.5-5.0)
[2021-03-21 06:17] LABS: Alveolar-Arterial Oxygen Gradi 23.8 mmHg (5-10); Blood Gas Operator Identificat JB; Blood Gas Sample Site Brachial, right; Oxygen Device HAG
--- NOTE | 2021-03-21 07:53 | PC.NURSE ---
Report received, assessment completed. Denies any pain or SOB. HFNC in use, 45L/45%. Resting in bed, makes all needs known, AAOx4. VSS. Garcia draining freely to BSD. Will monitor.
[2021-03-21] MEDS: ascorbic acid 500 mg Tablet 1000 MG PO ×2 (08:04→17:28)
[2021-03-21] MEDS: benzonatate 100 mg Capsule PO ×3 (08:04→21:29)
[2021-03-21] MEDS: pantoprazole DR 40 mg Tablet PO (08:05)
[2021-03-21] MEDS: dexamethasone 4 mg/mL INJ 6 MG IVP (08:05)
[2021-03-21] MEDS: potassium chloride ER 20 mEq Tablet 40 MEQ PO (08:05)
[2021-03-21] MEDS: ferrous gluconate 324 mg Tablet PO ×2 (08:05→17:28)
[2021-03-21] MEDS: fluconazole 100 mg Tablet 200 MG PO (08:05)
[2021-03-21] MEDS: FUROsemide 20 mg Tablet PO (08:05)
[2021-03-21] MEDS: zinc gluconate 50 mg Tablet PO (08:05)
[2021-03-21] MEDS: carvedilol 12.5 mg Tablet PO ×2 (08:07→17:28)
--- NOTE | 2021-03-21 09:07 | PC.CHAP ---
Pastoral Care Encounter/Spiritual Assessment Type of Contact [] Declined lawyers visit [] Patient/Family/Request visit [] Outpatient visit [] Follow-up visit [] Physician referral [] Code/Alert [x] Routine visit [] Staff referral [] Actively dying [] Patient sleeping [] Family support [] [] Out of room [] Palliative care [] [x] Receiving care in room [] Pre-surgical visit [] Trauma [] Long length of stay [x] ICU visit [x] Other: patient setting up- on ventilator Relational/Emotional Strength [] Patient feels connected with others/family/visitors/staff [] Distress [] Loneliness/isolation [] Abandonment Spirituality of Patient [] Person of Sheron [] Attends Mu-Ism of their Sheron [] Believes in Prayer [] Reads Bible or Shinto materials [] There are Spiritual issues to be addressed 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 [x] Prayer [] Active listening [] Non-anxious presence [] Spiritual/emotional support [] Crisis/trauma care [] Spiritual counseling [] Bereavement support [] Provided bereavement packet [] Provided Bible/devotional materials [] Provided toy/stuffed animal, coloring book to patient or family member [] Provided Communion [] Anointing/[place] [] Salvation [x] Completed spiritual assessment [] Other: Impact on Illness or Injury [] Angry [] Fearful [] Anxious [] Often cries [] Exhaustion [] Unable to work [] Unable to attend nondenominational [] Unable to walk/stand [] Unable to read [] Unable to drive [] Unable to eat/drink [] Unable to sleep [] Unable to be with family [] Patient intubated [] Other: Summary Time spent with patient
--- NOTE | 2021-03-21 09:15 | PM.PN ---
Subjective Subjective: Interval history: -Patient seen at bedside today morning -Denied any complaints and appeared comfortable -Currently FiO2 requirement came down to 45% and 40 L on HFNC -Potassium 3.3-supplemented -Labs and imaging reviewed pertinent findings incorporated in assessment and plan Medications: Reviewed: Yes Vitals/I&O/Wt Last Vital Signs Temp 98.1 F 03/21/21 07:00 Pulse 68 03/21/21 07:00 Resp 23 H 03/21/21 07:00 BP 159/102 03/21/21 07:00 Pulse Ox 90 03/21/21 07:00 03/20/21 03/21/21 03/21/21 22:59 06:59 14:59 Intake Total 990 / 2150 100 / 100 Output Total 400 / 400 750 / 1150 Balance 590 / 1750 -750 / 1000 100 / 100 Weight last 48 hrs Weight 200 lb Weight 193 lb 12.8 oz Physical Exam Narrative: EXAM NARRATIVE: General: alert, NAD on high flow 60 L and 90% HEENT: conj clear, EOMI, PERRL, mmm, Neck: supple, no meningismus Heme: no cervical LAP Pulmonary: CTAB, no wheezing, rhonchi, crackles Cardiovascular: rrr, nl s1s2, no mrg Abdomen: soft, nt, nd, no r/g, bs+ Extremities: pulses +, no edema, no c/c : no CVA tenderness Skin: intact, no rash MSK: no back or neck pain Neurologic: grossly intact Urinary Catheter Management^: Garcia: Cath Placed During This Visit: yes Reason for Continuing Indwelling Catheter: Accurate Measurement of Urinary Output in Critically Ill Patients Urinary Catheter Date of Insertion: 03/17/21 Urinary Catheter Time of Insertion: 08:45 Data : 03/21/21 04:49 03/21/21 04:49 Other Labs: Laboratory Results WBC 14.7 10^3/uL (4.0-10.0) H 03/21/21 04:49 RBC 3.86 10^6/uL (4.1-5.3) L 03/21/21 04:49 Hgb 11.6 g/dL (11.5-15.3) 03/21/21 04:49 Hct 34.4 % (37.0-47.0) L 03/21/21 04:49 MCV 89.1 fL (81-99) 03/21/21 04:49 MCH 30.1 pg (28.0-34.0) 03/21/21 04:49 MCHC 33.7 g/dL (30.0-36.0) 03/21/21 04:49 RDW 13.9 % (12.1-15.1) 03/21/21 04:49 Plt Count 435 10^3/cmm (130-400) H 03/21/21 04:49 MPV 10.1 fL (7.4-10.4) 03/21/21 04:49 Neut % (Auto) 72.8 % 03/20/21 04:30 Lymph % (Auto) Not Reportable 03/21/21 04:49 Bond % (Auto) Not Reportable 03/21/21 04:49 Eos % (Auto) 0.0 % 03/20/21 04:30 Baso % (Auto) 0.1 % 03/20/21 04:30 Neut # (Auto) 10.88 10^3/uL (1.8-7.7) H 03/20/21 04:30 Lymph # (Auto) Not Reportable 03/21/21 04:49 Bond # (Auto) Not Reportable 03/21/21 04:49 Eos # (Auto) 0.0 10^3/uL (0.0-0.8) 03/20/21 04:30 Baso # (Auto) 0.0 10^3/uL (0.0-0.1) 03/20/21 04:30 Nucleated RBC % (auto) 0 % 03/20/21 04:30 Total Counted 100 (0-100) 03/21/21 04:49 Atypical Lymphs % 2.0 % (0-5) 03/21/21 04:49 Absolute Neutrophils 10.7 10^3/cmm (1.4-6.5) H 03/21/21 04:49 Segmented Neutrophils 65 % 03/21/21 04:49 Abs Segm Neuts (Man) 9.6 10/cmm (1.6-7.1) H 03/21/21 04:49 Band Neutrophils 8.0 % 03/21/21 04:49 Abs Band Neuts (Man) 1.2 10^3/cmm (0.0-1.2) 03/21/21 04:49 Absolute Lymphocytes 1.5 10^3/cmm (1.2-3.4) 03/21/21 04:49 Lymphocytes (Manual) 8 % 03/21/21 04:49 Monocytes (Manual) 9.0 % 03/21/21 04:49 Absolute Monocytes 1.3 10^3/cmm (0.1-0.6) H 03/21/21 04:49 Eosinophils (Manual) 0 % 03/21/21 04:49 Absolute Eosinophils 0.0 10^3/cmm (0.0-0.7) 03/21/21 04:49 Basophils (Manual) 0.0 % 03/21/21 04:49 Absolute Basophils 0.0 10^3/cmm (0.0-0.2) 03/21/21 04:49 Metamyelocytes 8.0 % 03/21/21 04:49 Nucleated RBCs # 0.0 /100WBC 03/20/21 04:30 Platelet Estimate Normal (Normal) 03/21/21 04:49 PT 14.40 SECONDS (12.1-14.9) 03/16/21 08:07 INR 1.09 (0.8-1.2) 03/16/21 08:07 Fibrinogen 539 mg/dL (174-498) H 03/21/21 04:49 D-Dimer 0.61 ug/mIFEU (0-0.59) H 03/21/21 04:49 Specimen Type Arterial 03/21/21 04:03 Sample Site Brachial, right 03/21/21 04:03 ABG pH 7.52 (7.35-7.45) H 03/21/21 04:03 ABG pCO2 33.0 mmHg (35-45) L 03/21/21 04:03 ABG pO2 59.6 mmHg (80.0-100.0) L 03/21/21 04:03 ABG HCO3 26.8 mmol/L (22-26) H 03/21/21 04:03 ABG O2 Saturation 92.5 03/21/21 04:03 ABG Base Excess 4.1 mmol/L (-2.0-2.0) H 03/21/21 04:03 Gurjit Test N/a 03/21/21 04:03 A-a O2 Gradient 23.8 mmHg (5-10) H 03/21/21 04:03 Hematocrit 36.6 % (37-47) L 03/21/21 04:03 Hgb O2 Saturation 91.4 % (95-100) L 03/21/21 04:03 Carboxyhemoglobin 0.5 %THgb (0.4-20.1) 03/21/21 04:03 Methemoglobin 0.6 % (0.4-1.5) 03/21/21 04:03 Total Hemoglobin 12.0 g/dL (12-16) 03/21/21 04:03 Sodium 138.0 mmol/L (131-143) 03/21/21 04:03 Potassium 3.3 mmol/L (3.5-5.0) L 03/21/21 04:03 Glucose 138.0 mg/dL (70-115) H 03/21/21 04:03 Ionized Calcium 1.2 mmol/L (1.1-1.4) 03/21/21 04:03 O2 Delivery Device Hag 03/21/21 04:03 O2 Liters/Min 45.0 % 03/21/21 04:03 FiO2 40.0 % 03/21/21 04:03 It Infrastructure Project Manager ID Luis Fernando 03/21/21 04:03 Sodium 137 mmol/L (136-145) 03/21/21 04:49 Potassium 3.4 mmol/L (3.5-5.1) L 03/21/21 04:49 Chloride 103 mmol/L (98-107) 03/21/21 04:49 Carbon Dioxide 27 mmol/L (22-29) 03/21/21 04:49 Anion Gap 10.4 (5-19) 03/21/21 04:49 BUN 22 mg/dL (8-23) 03/21/21 04:49 Creatinine 0.5 mg/dL (0.5-0.9) 03/21/21 04:49 GFR Calculation 123.4 mL/min (90-130) 03/21/21 04:49 Glucose 135 mg/dL (65-115) H 03/21/21 04:49 Estimat Average Glucose 117 03/19/21 03:00 Hemoglobin A1c 5.7 % (4.0-6.0) 03/19/21 03:00 Calculated Osmolality 289 mOsm/kg (285-295) 03/21/21 04:49 Lactic Acid 3.4 mmol/L (0.5-2.2) H 03/16/21 07:30 Lactic Acid (Sepsis) 2.7 mmol/L (0.5-2.2) H 03/16/21 10:39 Lactate 1.3 mmol/L (0.5-2.2) 03/18/21 11:00 Calcium 8.3 mg/dL (8.5-10.5) L 03/21/21 04:49 Iron 20 ug/dL (37-145) L 03/18/21 11:00 TIBC 160 mcg/dl 03/18/21 11:00 % Saturation 12.5 % (20-50) L 03/18/21 11:00 Unsat Iron Binding 140 ug/dL (112-347) 03/18/21 11:00 Ferritin 1528 ng/mL (15-150) H 03/21/21 04:49 Total Bilirubin 0.5 mg/dL (0.15-1.2) 03/21/21 04:49 AST 17 U/L (0-32) 03/21/21 04:49 ALT 19 U/L (0-33) 03/21/21 04:49 Alkaline Phosphatase 97 IU/L (35-105) 03/21/21 04:49 Lactate Dehydrogenase 280 U/L (135-214) H 03/21/21 04:49 Creatine Kinase 41 U/L (26-192) 03/21/21 04:49 C-Reactive Protein 28.5 mg/L (0.0-4.9) H 03/21/21 04:49 NT-Pro-B Natriuret Pep 659 pg/mL (0-125) H 03/21/21 04:49 Total Protein 5.5 g/dL (6.6-8.7) L 03/21/21 04:49 Albumin 2.4 g/dL (3.5-5.2) L 03/21/21 04:49 Globulin 3.1 g/dL (1.3-4.6) 03/21/21 04:49 Procalcitonin 6.88 ng/mL (0-0.5) H 03/20/21 04:30 TSH 0.19 uIU/mL (0.27-4.20) L 03/18/21 11:00 Free T4 1.53 ng/dL (0.82-1.77) 03/18/21 11:00 Free T3 1.2 PG/ML (2.0-4.4) L 03/18/21 11:00 Urine Color Yellow (Yellow) 03/16/21 16:00 Urine Appearance Clear (CLEAR) 03/16/21 16:00 Urine pH 5 (5-7) 03/16/21 16:00 Ur Specific [place] 1.010 (1.005-1.030) 03/16/21 16:00 Urine Protein Neg (Negative) 03/16/21 16:00 Urine Glucose (UA) Norm (Normal) 03/16/21 16:00 Urine Ketones Negative (Negative) 03/16/21 16:00 Urine Blood Trace (Negative) H 03/16/21 16:00 Urine Nitrate Negative (Negative) 03/16/21 16:00 Urine Bilirubin Neg (Negative) 03/16/21 16:00 Urine Urobilinogen Norm mg/dL (Negative) 03/16/21 16:00 Ur Leukocyte Esterase Negative (Negative) 03/16/21 16:00 Urine RBC Rare /hpf (0-2) 03/16/21 16:00 Urine WBC 0-4 /hpf (0-5) H 03/16/21 16:00 Ur Squamous Epith Cells Rare /hpf (0-5) 03/16/21 16:00 Amorphous Sediment Not Reportable 03/16/21 16:00 Urine Bacteria Trace /hpf (NONE) 03/16/21 16:00 Urine Osmolality 230 mOsm/kg (50-1200) 03/16/21 16:00 Ur Random Sodium 22 mmol/L 03/16/21 16:00 Urine Creatinine 22 mg/dL (28-217) L 03/16/21 16:00 Vancomycin Trough 8.0 ug/mL (10-15) L 03/19/21 03:00 Nasal/Oral COVID-19 PCR Cancelled 03/16/21 08:35 SARS-CoV-2 RNA (RT-PCR) Detected (NOT DETECTED) A 03/16/21 08:35 SARS-CoV-2 Ag (Rapid) Negative (Negative) 03/16/21 08:35 Impressions Chest CTA 03/16/21 07:57 IMPRESSION: 1. No evidence of pulmonary embolism. 2. Severe multifocal pneumonia. Radiation Dose CTDIVOL = (mGy): DLP = 545.65 (mGy-cm) Chest X-Ray 03/21/21 06:00 Impression: 1. Decrease in bilateral pulmonary opacities. 2. Cardiomegaly. Micro: Microbiology 03/19/21 03:00 Urine Culture - Final Urine Catheterized 03/16/21 07:30 Blood Culture - Final Blood NO GROWTH AFTER 5 DAYS 03/16/21 07:30 Blood Culture - Final Blood NO GROWTH AFTER 5 DAYS 03/19/21 04:35 Gram Stain - Final Sputum - Expectorated Sputum Sputum Culture - Preliminary Yeast species A&P Assessment and plan (1) ARDS (adult respiratory distress syndrome): Status: Acute (2) Acute respiratory failure with hypoxia: Status: Acute (3) Pneumonia due to 2019-nCoV: Status: Acute (4) Obesity (BMI 30-39.9): Status: Chronic (5) GERD (gastroesophageal reflux disease): Status: Chronic Qualifiers: Esophagitis presence: esophagitis presence not specified Qualified Code(s): K21.9 - Gastro-esophageal reflux disease without esophagitis (6) Hypokalemia: Status: Acute (7) Iron deficiency: Status: Acute (8) Increased anion gap metabolic acidosis: Status: Acute #Acute hypoxic respiratory failure secondary ARDS due to to COVID-19 pneumonia #Hypokalemia #High procalcitonin $ Fe deficiency - serum iron 20; % sat 12.5% -CTA 03/16/2021: No evidence of pulmonary embolism. Severe multifocal pneumonia. -COVID-19 PCR + 03/11/2021 at outside facility, -Afebrile since admission, and improving, lactic acid, procalcitonin -White count trending down -Gradually improving LDH, ferritin, CRP, and I-wieri-ykcawyu every 48 hours -Continue Vancomycin; changed zosyn to imipenam -Urine Legionella, urine bacterial antigens MRSA nares, blood cultures negative -Sputum culture-positive for yeast species-identification pending-started on fluconazole 200 mg p.o. daily -Completed 5 days of remdesivir ; received 1 dose of Tocilizumab -Continue Dexamethasone 6 mg daily -AB.5 /59/26/97% saturation on HFNC 45 L and 40% FiO2 -Titrate FiO2 if possible change to nasal cannula with target saturations > 90% -Continue DuoNeb nebulizations every 4 hours scheduled & budesonide 0.5 mg bid -Continue to titrate down FiO2 -BNP - 3482 >> 513; Echo 03/18/21: normal LVEF 68%, mlld LVH, Grade I/IV Diastolic dysfunction; Trace to mild mitral valve regurgitation. Mild mitral annular calcification. -Continue hemodynamic monitoring -Initially paroxysmal A. fib and given bolus of amiodarone and currently carvedilol 6.25 mg bid -Net + 4 L since admission; -Normal renal function-Lasix 40 mg p.o. daily to keep net negative to even -Sodium 139, potassium 3. 4 supplemented, bicarb 27, corrected anion gap 14, -Improving anion gap metabolic acidosis likely due to lactic acidosis -Monitor renal functions, electrolytes, input and output closely -Improved LFTs -Sugars well controlled; started on scale coverage -Regular diet ; PPI for GI prophylaxis -On lovenox for DVT prophylaxis -Feso4 324 mg BIDWM and IV Venofer 200 mg daily for iron deficiency Recommendations conveyed to hospitalist, RN, RT covering the patient Attestations Medical Necessity Statement*: Acute hypoxic respiratory failure secondary to ARDS due to COVID 19 and possible bacterial infection. Continues to improve and the gradual decrease in FiO2 requirements-if she continues to improve we will transfer to medical floor in 1 to 2 days Time Spent in Patient Care: (>than 50% of time spent in counselling and/or direct pt care on unit). Critical Care Time: The high probability of a clinically significant, sudden or life threatening deterioration of the patient's [Pulm, renal and infectious] system(s) required my full and direct attention, intervention and personal management. The critical care time is as shown. 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
[2021-03-21] MEDS: budesonide 0.5 mg/2 mL Neb INHALATION ×2 (09:24→19:45)
--- NOTE | 2021-03-21 10:07 | P.PN_ITS ---
Subjective Subjective: Interval history: No acute events overnight. Patient continues to improve. On examination she is on 45 L 40% saturating 92%. During the whole day she was transitioned over to regular high flow. She denies any nausea vomiting, headache. Working well with incentive spirometry. States energy levels are good and eating well. Medications: Reviewed: Yes Vitals/I&O/Wt Last Vital Signs Temp 98.1 F 03/21/21 07:00 Pulse 78 03/21/21 09:31 Resp 18 03/21/21 09:30 BP 159/102 03/21/21 07:00 Pulse Ox 92 03/21/21 09:30 03/20/21 03/21/21 03/21/21 22:59 06:59 14:59 Intake Total 990 / 2150 100 / 100 Output Total 400 / 400 750 / 1150 Balance 590 / 1750 -750 / 1000 100 / 100 Weight last 48 hrs Weight 90.718 kg Weight 87.906 kg Physical Exam Narrative: EXAM NARRATIVE: General: No acute distress, AO x3, heated high flow, feeling better. HEENT: PERRLA, pupils bilaterally equal and reactive Chest: Normal vesicular breath sounds, b/l diffuse ronchi all over lung field. Equal good air entry bilaterally CVS: S1-S2 regular, no murmurs, no tachycardia, no gallops, no rubs Abdomen: Soft, nontender, no organomegaly, bowel sounds present Neuro: No focal deficits, no facial deformity, AO x3, power 5/5 in all limbs Urinary Catheter Management^: Garcia: Cath Placed During This Visit: yes Reason for Continuing Indwelling Catheter: Accurate Measurement of Urinary Output in Critically Ill Patients Urinary Catheter Date of Insertion: 03/17/21 Urinary Catheter Time of Insertion: 08:45 Data : 03/21/21 04:49 03/21/21 04:49 Micro: Microbiology 03/19/21 03:00 Urine Culture - Final Urine Catheterized 03/16/21 07:30 Blood Culture - Final Blood NO GROWTH AFTER 5 DAYS 03/16/21 07:30 Blood Culture - Final Blood NO GROWTH AFTER 5 DAYS 03/19/21 04:35 Gram Stain - Final Sputum - Expectorated Sputum Sputum Culture - Preliminary Yeast species A&P Assessment and plan (1) Pneumonia due to 2019-nCoV: Status: Acute (2) Acute respiratory failure with hypoxia: Status: Acute (3) Hyponatremia: Status: Acute (4) Mixed hyperlipidemia: Status: Chronic (5) GERD (gastroesophageal reflux disease): Status: Chronic Qualifiers: Esophagitis presence: esophagitis presence not specified Qualified Code(s): K21.9 - Gastro-esophageal reflux disease without esophagitis Acute respiratory distress hypoxemia due to COVID-19 pneumonia Improving. Continue to wean oxygen keeping saturation over 90%. We will try to get her over to regular high flow from heated high flow today. Post Actemra. Inflammatory markers trending down so we will hold off on second dose for now. Continue antiviral treatment with remdesivir for 5 days. Last dose on March 20. Dexamethasone 6 mg IV QD Duoneb q4h, budesonide bid. Incentive spirometry, flutter valve. Vit c, zinc, tessalon. Oxygen supplementation keeping saturation over 92%. Procal elevated. High likely of super imposed bacterial infection. Pro-Tigre trending down, MRSA swab, bacterial antigen, urine Legionella negative. Sputum culture growing yeast. Continue with imipenem. Day 02/28 today. Continue with Diflucan 20 mg daily. Day 2/ today. C/w full dose lovenox as patient is critically sick. Patient will most likely need 14 days of anticoagulation post discharge. Contine to monitor inflammatory markers. Precedex for anxiety. No more ativan to avoid decrease respiratory drive. Echocardiogram done earlier in the admission shows an EF of 68% with grade 1 diastolic dysfunction, mild MR. Keep patient net negative. Fluid restriction 1500 cc. Overall patient is 3.5 L positive since admission. Lasix 40 mg oral daily. Appreciate pulmonology recommendations. Paroxysmal Atrial Fibrillation - converted to NSR s/p Amiodarone bolus Coreg dose of prior to 12.5 mg twice daily depending on blood pressures today. Lovenox full dose HTN: No h/o HTN. Goal BP less than 140/90 mmhg. Blood pressure is mildly elevated. Increase Coreg to 12.5 mg twice daily. Continue to monitor. Acute Renal Failure - resolved Creatinine 1.5 - 0.9 Med rec done for nephrotoxic drug Monitor u/o Renal dosing of meds Replete potassium for hyponatremia today. Hyponatremia Resolved Dyslipidemia Lipitor 40 mg PO daily Hold if worsening LFTs CMP in am Continue with IV iron supplementation for iron deficiency anemia. Day / today. GERD Protonix 40 mg PO daily DVT ppx Lovenox Full dose. FC GI soft diet. Attestations Medical Necessity Statement*: Patient requires further hospitalization for management of ARDS because of COVID-19 pneumonia. Time Spent in Patient Care: Greater than 35 minutes (>than 50% of time spent in counselling and/or direct pt care on unit) . 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
[2021-03-21] MEDS: FUROsemide 20 mg Tablet 40 MG PO (10:30)
[2021-03-21] MEDS: HYDROcodone-acetaminophen 5-325 mg Tablet 1 TAB PO ×2 (11:43→21:29)
--- NOTE | 2021-03-21 13:28 | PC.SOCIAL ---
IMM IMM not updated as patient is accepted to discharge in the next 24/48 hours.
[2021-03-21] MEDS: iron sucrose 200 MG in sodium chloride 0.9% (100 ml) 100 ML 220 MG IV (14:41)
[2021-03-21] MEDS: atorvastatin 40 mg Tablet PO (21:29)
[2021-03-22] VITALS (37 sets, daily range): BP systolic 108–164; BP diastolic 68–103; PULSE 68–96; RESP 9–22; TEMP 36.3–36.7; O2SAT 87–97
[2021-03-22] MEDS: ipratropium-albuterol 3 mL Neb INHALATION ×5 (03:25→20:36)
[2021-03-22] MEDS: enoxaparin 100 mg/mL Syringe 90 MG SUBCUT ×2 (03:36→18:16)
--- NOTE | 2021-03-22 05:05 | PC.NURSE ---
Shift Summary Patient is alert and oriented able to tolerate a non heated high flow on 10L all night, She still had high blood pressure that she was unhappy about, will let the doctor know today, but in the broadcast producer her blood pressure came down to with in normal range. She is appropriate and cooperative, had good urine output. She is very unsatisfied with the food that she received yesterday.. She may be able to transfer out of the ICU today based on how well she is doing on her progress.
[2021-03-22 05:40] LABS: Basophils # 0.1 10^3/uL (0.0-0.1); Basophils % 0.6 %; Hematocrit 34.9 % (37.0-47.0); Hemoglobin 11.8 g/dL (11.5-15.3); Lymphocytes # 1.5 10^3/uL (0.8-4.8); Lymphocytes % 9.1 %; Mean Corpuscular HGB Conc 33.8 g/dL (30.0-36.0); Mean Corpuscular Hemoglobin 29.9 pg (28.0-34.0); Mean Corpuscular Volume 88.4 fL (81-99); Mean Platelet Volume 9.9 fL (7.4-10.4); Monocytes # 1.3 10^3/uL (0.2-0.9); Monocytes % 7.8 %; Neutrophils # 11.52 10^3/uL (1.8-7.7); Neutrophils % 72.2 %; Nucleated Red Blood Cells % 0 %; Platelet Count 434 10^3/cmm (130-400); Red Blood Count 3.95 10^6/uL (4.1-5.3); Red Cell Distribution Width 13.7 % (12.1-15.1)
[2021-03-22 05:53] LABS: Fibrinogen 417 mg/dL (174-498)
[2021-03-22 05:55] LABS: D Dimer 0.58 ug/mIFEU (0-0.59)
[2021-03-22 05:57] LABS: Alanine Aminotransferase 20 U/L (0-33); Albumin Level 2.6 g/dL (3.5-5.2); Alkaline Phosphatase 97 IU/L (35-105); Anion Gap 15.5 (5-19); Aspartate Amino Transferase 17 U/L (0-32); Blood Urea Nitrogen 20 mg/dL (8-23); Calcium 8.5 mg/dL (8.5-10.5); Carbon Dioxide 24 mmol/L (22-29); Chloride 99 mmol/L (98-107); Globulin 2.8 g/dL (1.3-4.6); Glucose 173 mg/dL (65-115); Osmolality Calculated 287 mOsm/kg (285-295); Potassium 3.5 mmol/L (3.5-5.1); Slide Review Slide Review Perform; Sodium 135 mmol/L (136-145); Total Bilirubin 0.5 mg/dL (0.15-1.2); Total Protein 5.4 g/dL (6.6-8.7)
[2021-03-22 06:05] LABS: C Reactive Protein 16.7 mg/L (0.0-4.9); Creatine Phosphokinase 32 U/L (26-192); Lactate Dehydrogenase 299 U/L (135-214)
[2021-03-22 06:12] LABS: Procalcitonin 1.68 ng/mL (0-0.5)
[2021-03-22 06:20] LABS: Ferritin 1730 ng/mL (15-150)
[2021-03-22] MEDS: fluconazole 100 mg Tablet 200 MG PO (08:06)
[2021-03-22] MEDS: ascorbic acid 500 mg Tablet 1000 MG PO ×2 (08:06→18:15)
[2021-03-22] MEDS: pantoprazole DR 40 mg Tablet PO (08:07)
[2021-03-22] MEDS: zinc gluconate 50 mg Tablet PO (08:07)
[2021-03-22] MEDS: FUROsemide 20 mg Tablet 40 MG PO (08:07)
[2021-03-22] MEDS: ferrous gluconate 324 mg Tablet PO ×2 (08:07→18:15)
[2021-03-22] MEDS: benzonatate 100 mg Capsule PO ×3 (08:07→21:34)
[2021-03-22] MEDS: dexamethasone 4 mg/mL INJ 6 MG IVP (08:07)
--- NOTE | 2021-03-22 08:13 | PC.NURSE ---
Report received, pt resting in bed. AAOx4. Denies any needs or complaints. Large core NC in use at 10L tolerated well. Will monitor.
[2021-03-22] MEDS: budesonide 0.5 mg/2 mL Neb INHALATION ×2 (08:48→20:36)
[2021-03-22] MEDS: HYDROcodone-acetaminophen 5-325 mg Tablet 1 TAB PO (08:49)
[2021-03-22] MEDS: carvedilol 12.5 mg Tablet PO ×2 (09:32→18:15)
--- NOTE | 2021-03-22 10:56 | PC.NURSE ---
Pt own med started per MD order. Awaiting pharmacy to deliver label for med.
--- NOTE | 2021-03-22 12:18 | PC.NURSE ---
1205 Report given to Jeannie SINGH.
--- NOTE | 2021-03-22 13:03 | PC.NURSE ---
Pt transferred to room 257 via w/c . Nurse notified. Home meds given to Jeannie SINGH.
--- NOTE | 2021-03-22 15:06 | PM.PN ---
Subjective Subjective: Interval history: No acute events overnight. Patient continues to do well. Denies any nausea vomiting, headache. Continues to do well with incentive spirometry and flutter valve. Very jovial today morning and excited about decreased oxygen requirement. Currently on high flow of 6 L being transitioned over to regular nasal cannula. She saturating 97%. Medications: Reviewed: Yes Vitals/I&O/Wt Last Vital Signs Temp 97.8 F 03/22/21 13:00 Pulse 70 03/22/21 14:00 Resp 16 03/22/21 13:00 BP 133/71 03/22/21 13:00 Pulse Ox 95 03/22/21 13:00 03/22/21 03/22/21 03/22/21 06:59 14:59 22:59 Intake Total 920 / 920 Output Total 300 / 2000 1075 / 1075 Balance -300 / -290 -155 / -155 Weight last 48 hrs Weight 91.081 kg Weight 90.718 kg Physical Exam Narrative: EXAM NARRATIVE: General: No acute distress, AO x3, heated high flow, feeling better. HEENT: PERRLA, pupils bilaterally equal and reactive Chest: Normal vesicular breath sounds, b/l diffuse ronchi all over lung field. Equal good air entry bilaterally CVS: S1-S2 regular, no murmurs, no tachycardia, no gallops, no rubs Abdomen: Soft, nontender, no organomegaly, bowel sounds present Neuro: No focal deficits, no facial deformity, AO x3, power 5/5 in all limbs Urinary Catheter Management^: Garcia: Cath Placed During This Visit: yes, but has since been removed by the nurse Reason for Continuing Indwelling Catheter: Accurate Measurement of Urinary Output in Critically Ill Patients Urinary Catheter Date of Insertion: 03/17/21 Urinary Catheter Time of Insertion: 08:45 Date Urinary Catheter Removed: 03/22/21 Time Urinary Catheter Discontinued: 11:00 Data : 03/22/21 05:30 03/22/21 05:30 A&P Assessment and plan (1) Pneumonia due to 2019-nCoV: Status: Acute (2) Acute respiratory failure with hypoxia: Status: Acute (3) Hyponatremia: Status: Acute (4) Mixed hyperlipidemia: Status: Chronic (5) GERD (gastroesophageal reflux disease): Status: Chronic Qualifiers: Esophagitis presence: esophagitis presence not specified Qualified Code(s): K21.9 - Gastro-esophageal reflux disease without esophagitis Acute respiratory distress hypoxemia due to COVID-19 pneumonia?resolved. Acute hypoxic respiratory failure: Improving. Continue to wean oxygen keeping saturation over 90%. We will try to get her over to regular high flow from heated high flow today. Post Actemra. Inflammatory markers trending down so we will hold off on second dose for now. Continue antiviral treatment with remdesivir for 5 days. Last dose on March 20. Dexamethasone 6 mg IV QD Duoneb q4h, budesonide bid. Incentive spirometry, flutter valve. Vit c, zinc, tessalon. Oxygen supplementation keeping saturation over 92%. Procal elevated. High likely of super imposed bacterial infection. Pro-Tigre trending down, MRSA swab, bacterial antigen, urine Legionella negative. Sputum culture growing yeast. Continue with imipenem. Day7/ today. Continue with Diflucan 20 mg daily. Day 3/ today. C/w full dose lovenox as patient is critically sick. Patient will most likely need 14 days of anticoagulation post discharge. Contine to monitor inflammatory markers. Precedex for anxiety. No more ativan to avoid decrease respiratory drive. Echocardiogram done earlier in the admission shows an EF of 68% with grade 1 diastolic dysfunction, mild MR. Keep patient net negative. Fluid restriction 1500 cc. Overall patient is 3.5 L positive since admission. Lasix 40 mg oral daily. Appreciate pulmonology recommendations. Paroxysmal Atrial Fibrillation - converted to NSR s/p Amiodarone bolus Coreg dose of prior to 12.5 mg twice daily depending on blood pressures today. Lovenox full dose HTN: No h/o HTN. Goal BP less than 140/90 mmhg. Blood pressure is mildly elevated. Increase Coreg to 12.5 mg twice daily. Continue to monitor. Acute Renal Failure - resolved Creatinine 1.5 - 0.9 Med rec done for nephrotoxic drug Monitor u/o Renal dosing of meds Replete potassium for hyponatremia today. Hyponatremia Resolved Dyslipidemia Lipitor 40 mg PO daily Hold if worsening LFTs CMP in am Continue with IV iron supplementation for iron deficiency anemia. Day 4/5 today. GERD Protonix 40 mg PO daily DVT ppx Lovenox Full dose. FC GI soft diet. Transfer to general medical floor. Discharge planning: If patient continues to do well can plan to discharge patient in next few days after having home O2 evaluation. Attestations Medical Necessity Statement*: Patient requires further hospitalization for management of hypoxic respiratory failure secondary to COVID-19 pneumonia. Time Spent in Patient Care: Greater than 35 minutes (>than 50% of time spent in counselling and/or direct pt care on unit). 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
--- NOTE | 2021-03-22 17:50 | P.PN_ITS ---
Subjective Subjective: Interval history: Clinically improving down to 3L nasal cannula; sitting comfortably no complaints will be transferred to floor Medications: Reviewed: Yes Vitals/I&O/Wt Last Vital Signs Temp 97.8 F 03/22/21 13:00 Pulse 81 03/22/21 15:34 Resp 20 H 03/22/21 15:25 BP 133/71 03/22/21 13:00 Pulse Ox 93 03/22/21 15:25 03/22/21 03/22/21 03/22/21 06:59 14:59 22:59 Intake Total 920 / 920 Output Total 300 / 1999 1075 / 1075 Balance -300 / -290 -155 / -155 Weight last 48 hrs Weight 200 lb 12.8 oz Weight 200 lb Physical Exam Narrative: EXAM NARRATIVE: General: alert, NAD HEENT: conj clear, EOMI, PERRL, mmm, Neck: supple, no meningismus Heme: no cervical LAP Pulmonary: CTAB, no wheezing, rhonchi, crackles Cardiovascular: rrr, nl s1s2, no mrg Abdomen: soft, nt, nd, no r/g, bs+ Extremities: pulses +, no edema, no c/c : no CVA tenderness Skin: intact, no rash MSK: no back or neck pain Neurologic: grossly intact Urinary Catheter Management^: Garcia: Cath Placed During This Visit: yes, but has since been removed by the nurse Reason for Continuing Indwelling Catheter: Accurate Measurement of Urinary Output in Critically Ill Patients Urinary Catheter Date of Insertion: 03/17/21 Urinary Catheter Time of Insertion: 08:45 Date Urinary Catheter Removed: 03/22/21 Time Urinary Catheter Discontinued: 11:00 Data : 03/22/21 05:30 03/22/21 05:30 Other Labs: Laboratory Results WBC 16.0 10^3/uL (4.0-10.0) H 03/22/21 05:30 RBC 3.95 10^6/uL (4.1-5.3) L 03/22/21 05:30 Hgb 11.8 g/dL (11.5-15.3) 03/22/21 05:30 Hct 34.9 % (37.0-47.0) L 03/22/21 05:30 MCV 88.4 fL (81-99) 03/22/21 05:30 MCH 29.9 pg (28.0-34.0) 03/22/21 05:30 MCHC 33.8 g/dL (30.0-36.0) 03/22/21 05:30 RDW 13.7 % (12.1-15.1) 03/22/21 05:30 Plt Count 434 10^3/cmm (130-400) H 03/22/21 05:30 MPV 9.9 fL (7.4-10.4) 03/22/21 05:30 Neut % (Auto) 72.2 % 03/22/21 05:30 Lymph % (Auto) 9.1 % 03/22/21 05:30 Granite % (Auto) 7.8 % 03/22/21 05:30 Eos % (Auto) 0.0 % 03/22/21 05:30 Baso % (Auto) 0.6 % 03/22/21 05:30 Neut # (Auto) 11.52 10^3/uL (1.8-7.7) H 03/22/21 05:30 Lymph # (Auto) 1.5 10^3/uL (0.8-4.8) 03/22/21 05:30 Granite # (Auto) 1.3 10^3/uL (0.2-0.9) H 03/22/21 05:30 Eos # (Auto) 0.0 10^3/uL (0.0-0.8) 03/22/21 05:30 Baso # (Auto) 0.1 10^3/uL (0.0-0.1) 03/22/21 05:30 Nucleated RBC % (auto) 0 % 03/22/21 05:30 Total Counted 100 (0-100) 03/21/21 04:49 Atypical Lymphs % 2.0 % (0-5) 03/21/21 04:49 Absolute Neutrophils 10.7 10^3/cmm (1.4-6.5) H 03/21/21 04:49 Segmented Neutrophils 65 % 03/21/21 04:49 Abs Segm Neuts (Man) 9.6 10/cmm (1.6-7.1) H 03/21/21 04:49 Band Neutrophils 8.0 % 03/21/21 04:49 Abs Band Neuts (Man) 1.2 10^3/cmm (0.0-1.2) 03/21/21 04:49 Absolute Lymphocytes 1.5 10^3/cmm (1.2-3.4) 03/21/21 04:49 Lymphocytes (Manual) 8 % 03/21/21 04:49 Monocytes (Manual) 9.0 % 03/21/21 04:49 Absolute Monocytes 1.3 10^3/cmm (0.1-0.6) H 03/21/21 04:49 Eosinophils (Manual) 0 % 03/21/21 04:49 Absolute Eosinophils 0.0 10^3/cmm (0.0-0.7) 03/21/21 04:49 Basophils (Manual) 0.0 % 03/21/21 04:49 Absolute Basophils 0.0 10^3/cmm (0.0-0.2) 03/21/21 04:49 Metamyelocytes 8.0 % 03/21/21 04:49 Nucleated RBCs # 0.0 /100WBC 03/22/21 05:30 Platelet Estimate Normal (Normal) 03/21/21 04:49 PT 14.40 SECONDS (12.1-14.9) 03/16/21 08:07 INR 1.09 (0.8-1.2) 03/16/21 08:07 Fibrinogen 417 mg/dL (174-498) 03/22/21 05:30 D-Dimer 0.58 ug/mIFEU (0-0.59) 03/22/21 05:30 Specimen Type Arterial 03/21/21 04:03 Sample Site Brachial, right 03/21/21 04:03 ABG pH 7.52 (7.35-7.45) H 03/21/21 04:03 ABG pCO2 33.0 mmHg (35-45) L 03/21/21 04:03 ABG pO2 59.6 mmHg (80.0-100.0) L 03/21/21 04:03 ABG HCO3 26.8 mmol/L (22-26) H 03/21/21 04:03 ABG O2 Saturation 92.5 03/21/21 04:03 ABG Base Excess 4.1 mmol/L (-2.0-2.0) H 03/21/21 04:03 Gurjit Test N/a 03/21/21 04:03 A-a O2 Gradient 23.8 mmHg (5-10) H 03/21/21 04:03 Hematocrit 36.6 % (37-47) L 03/21/21 04:03 Hgb O2 Saturation 91.4 % (95-100) L 03/21/21 04:03 Carboxyhemoglobin 0.5 %THgb (0.4-20.1) 03/21/21 04:03 Methemoglobin 0.6 % (0.4-1.5) 03/21/21 04:03 Total Hemoglobin 12.0 g/dL (12-16) 03/21/21 04:03 Sodium 138.0 mmol/L (131-143) 03/21/21 04:03 Potassium 3.3 mmol/L (3.5-5.0) L 03/21/21 04:03 Glucose 138.0 mg/dL (70-115) H 03/21/21 04:03 Ionized Calcium 1.2 mmol/L (1.1-1.4) 03/21/21 04:03 O2 Delivery Device Hag 03/21/21 04:03 O2 Liters/Min 45.0 % 03/21/21 04:03 FiO2 40.0 % 03/21/21 04:03 Hot Metal Crane Operator ID Luis Fernando 03/21/21 04:03 Sodium 135 mmol/L (136-145) L 03/22/21 05:30 Potassium 3.5 mmol/L (3.5-5.1) 03/22/21 05:30 Chloride 99 mmol/L (98-107) 03/22/21 05:30 Carbon Dioxide 24 mmol/L (22-29) 03/22/21 05:30 Anion Gap 15.5 (5-19) 03/22/21 05:30 BUN 20 mg/dL (8-23) 03/22/21 05:30 Creatinine 0.6 mg/dL (0.5-0.9) 03/22/21 05:30 GFR Calculation 100.0 mL/min (90-130) 03/22/21 05:30 Glucose 173 mg/dL (65-115) H 03/22/21 05:30 Estimat Average Glucose 117 03/19/21 03:00 Hemoglobin A1c 5.7 % (4.0-6.0) 03/19/21 03:00 Calculated Osmolality 287 mOsm/kg (285-295) 03/22/21 05:30 Lactic Acid 3.4 mmol/L (0.5-2.2) H 03/16/21 07:30 Lactic Acid (Sepsis) 2.7 mmol/L (0.5-2.2) H 03/16/21 10:39 Lactate 1.3 mmol/L (0.5-2.2) 03/18/21 11:00 Calcium 8.5 mg/dL (8.5-10.5) 03/22/21 05:30 Iron 20 ug/dL (37-145) L 03/18/21 11:00 TIBC 160 mcg/dl 03/18/21 11:00 % Saturation 12.5 % (20-50) L 03/18/21 11:00 Unsat Iron Binding 140 ug/dL (112-347) 03/18/21 11:00 Ferritin 1730 ng/mL (15-150) H 03/22/21 05:30 Total Bilirubin 0.5 mg/dL (0.15-1.2) 03/22/21 05:30 AST 17 U/L (0-32) 03/22/21 05:30 ALT 20 U/L (0-33) 03/22/21 05:30 Alkaline Phosphatase 97 IU/L (35-105) 03/22/21 05:30 Lactate Dehydrogenase 299 U/L (135-214) H 03/22/21 05:30 Creatine Kinase 32 U/L (26-192) 03/22/21 05:30 C-Reactive Protein 16.7 mg/L (0.0-4.9) H 03/22/21 05:30 NT-Pro-B Natriuret Pep 659 pg/mL (0-125) H 03/21/21 04:49 Total Protein 5.4 g/dL (6.6-8.7) L 03/22/21 05:30 Albumin 2.6 g/dL (3.5-5.2) L 03/22/21 05:30 Globulin 2.8 g/dL (1.3-4.6) 03/22/21 05:30 Interleukin 6 82823.50 pg/mL (<5.00) H 03/16/21 07:30 Procalcitonin 1.68 ng/mL (0-0.5) H 03/22/21 05:30 TSH 0.19 uIU/mL (0.27-4.20) L 03/18/21 11:00 Free T4 1.53 ng/dL (0.82-1.77) 03/18/21 11:00 Free T3 1.2 PG/ML (2.0-4.4) L 03/18/21 11:00 Urine Color Yellow (Yellow) 03/16/21 16:00 Urine Appearance Clear (CLEAR) 03/16/21 16:00 Urine pH 5 (5-7) 03/16/21 16:00 Ur Specific [place] 1.010 (1.005-1.030) 03/16/21 16:00 Urine Protein Neg (Negative) 03/16/21 16:00 Urine Glucose (UA) Norm (Normal) 03/16/21 16:00 Urine Ketones Negative (Negative) 03/16/21 16:00 Urine Blood Trace (Negative) H 03/16/21 16:00 Urine Nitrate Negative (Negative) 03/16/21 16:00 Urine Bilirubin Neg (Negative) 03/16/21 16:00 Urine Urobilinogen Norm mg/dL (Negative) 03/16/21 16:00 Ur Leukocyte Esterase Negative (Negative) 03/16/21 16:00 Urine RBC Rare /hpf (0-2) 03/16/21 16:00 Urine WBC 0-4 /hpf (0-5) H 03/16/21 16:00 Ur Squamous Epith Cells Rare /hpf (0-5) 03/16/21 16:00 Amorphous Sediment Not Reportable 03/16/21 16:00 Urine Bacteria Trace /hpf (NONE) 03/16/21 16:00 Urine Osmolality 230 mOsm/kg (50-1200) 03/16/21 16:00 Ur Random Sodium 22 mmol/L 03/16/21 16:00 Urine Creatinine 22 mg/dL (28-217) L 03/16/21 16:00 Vancomycin Trough 8.0 ug/mL (10-15) L 03/19/21 03:00 Nasal/Oral COVID-19 PCR Cancelled 03/16/21 08:35 SARS-CoV-2 RNA (RT-PCR) Detected (NOT DETECTED) A 03/16/21 08:35 SARS-CoV-2 Ag (Rapid) Negative (Negative) 03/16/21 08:35 Impressions Chest CTA 03/16/21 07:57 IMPRESSION: 1. No evidence of pulmonary embolism. 2. Severe multifocal pneumonia. Radiation Dose CTDIVOL = (mGy): DLP = 545.65 (mGy-cm) Chest X-Ray 03/21/21 06:00 Impression: 1. Decrease in bilateral pulmonary opacities. 2. Cardiomegaly. Micro: Microbiology 03/19/21 04:35 Gram Stain - Final Sputum - Expectorated Sputum Sputum Culture - Final Maryan albicans A&P Assessment and plan (1) ARDS (adult respiratory distress syndrome): Status: Acute (2) Acute respiratory failure with hypoxia: Status: Acute (3) Pneumonia due to 2019-nCoV: Status: Acute (4) Obesity (BMI 30-39.9): Status: Chronic (5) GERD (gastroesophageal reflux disease): Status: Chronic Qualifiers: Esophagitis presence: esophagitis presence not specified Qualified Code(s): K21.9 - Gastro-esophageal reflux disease without esophagitis (6) Hypokalemia: Status: Acute (7) Iron deficiency: Status: Acute (8) Increased anion gap metabolic acidosis: Status: Acute #Acute hypoxic respiratory failure secondary ARDS due to to COVID-19 pneumonia #Hypokalemia #High procalcitonin $ Fe deficiency - serum iron 20; % sat 12.5% -CTA 03/16/2021: No evidence of pulmonary embolism. Severe multifocal pneumonia. -COVID-19 PCR + 03/11/2021 at outside facility, -Afebrile since admission, and improving, lactic acid, procalcitonin -White count trending down -Gradually improving LDH, ferritin, CRP, and [id number] every 48 hours -Continue Vancomycin; imipenam - Can DC after 10 days of total duration -Urine Legionella, urine bacterial antigens MRSA nares, blood cultures negative -Sputum culture-positive for yeast species-identification maryan albicans -Can DC fluconazole 200 mg p.o. daily -Completed 5 days of remdesivir ; received 1 dose of Tocilizumab -Continue Dexamethasone 6 mg daily- -Clinically improving - currently down to 3L nasal cannula - saturating 95% - Transfer to floor -Titrate FiO2 if possible change to nasal cannula with target saturations > 90% -Continue DuoNeb nebulizations every 4 hours scheduled & budesonide 0.5 mg bid -BNP - 3482 >> 513; Echo 03/18/21: normal LVEF 68%, mlld LVH, Grade I/IV Diastolic dysfunction; Trace to mild mitral valve regurgitation. Mild mitral annular calcification. -Continue hemodynamic monitoring -Initially paroxysmal A. fib and given bolus of amiodarone and currently carvedilol 6.25 mg bid -Net + 3.2 L since admission; -Normal renal function-Lasix 40 mg p.o. daily to keep net negative to even -Improving anion gap metabolic acidosis likely due to lactic acidosis -Monitor renal functions, electrolytes, input and output closely -Improved LFTs -Sugars well controlled; started on scale coverage -Regular diet ; PPI for GI prophylaxis -On lovenox for DVT prophylaxis -Feso4 324 mg BIDWM and IV Venofer 200 mg daily for iron deficiency - gives history of smoking; 1.5 PPD for 16 years - need PFTs as out patient Recommendations conveyed to hospitalist, RN, RT covering the patient As patient is clinically improving and transferred to floor - I wlll sign off the case and please reconsult if necessary Thanks for involving in the care of the patient Attestations Medical Necessity Statement*: Acute hypoxic respiratory failure secondary to ARDS due to COVID 19 and possible bacterial infection. Continues to improve and the gradual decrease in FiO2 requirements- transfer to medical floor Time Spent in Patient Care: (>than 50% of time spent in counselling and/or direct pt care on unit) . Critical Care Time: The high probability of a clinically significant, sudden or life threatening deterioration of the patient's [Pulm, and infectious] system(s) required my full and direct attention, intervention and personal management. The critical care time is as shown. 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
[2021-03-22] MEDS: atorvastatin 40 mg Tablet PO (21:34)
[2021-03-23] VITALS (24 sets, daily range): BP systolic 104–150; BP diastolic 69–83; PULSE 61–93; RESP 14–20; TEMP 36.4–36.9; O2SAT 91–96
[2021-03-23] MEDS: ipratropium-albuterol 3 mL Neb INHALATION ×6 (00:45→19:53)
[2021-03-23] MEDS: enoxaparin 100 mg/mL Syringe 90 MG SUBCUT ×2 (05:36→16:02)
[2021-03-23] MEDS: acetaminophen 325 mg Tablet 650 MG PO ×2 (05:37→16:07)
--- NOTE | 2021-03-23 06:00 | XRR_ITS ---
PROCEDURE INFORMATION: Exam: XR Chest Exam date and time: 03/23/2021 6:00 AM Age: 66 years old Clinical indication: Shortness of breath; Additional info: Covid TECHNIQUE: Imaging protocol: XR of the chest. Views: 1 view. COMPARISON: CR XR chest 1V portable [id number] 03/21/2021 6:24 AM FINDINGS: Lungs: Bilateral patchy ill-defined pulmonary opacities are present compatible with pneumonia. These have improved in the interval. Pleural spaces: No pleural effusion or pneumothorax. Heart/Mediastinum: The cardiac silhouette is not enlarged. The mediastinal contours are normal. Bones/joints: No acute osseous abnormality. XR/XR chest 1V portable [id number] IMPRESSION: Improvement in bilateral pneumonia.
[2021-03-23 06:52] LABS: Basophils # 0.1 10^3/uL (0.0-0.1); Basophils % 0.6 %; Hematocrit 38.5 % (37.0-47.0); Hemoglobin 12.8 g/dL (11.5-15.3); Lymphocytes # 1.5 10^3/uL (0.8-4.8); Mean Corpuscular HGB Conc 33.2 g/dL (30.0-36.0); Mean Corpuscular Hemoglobin 29.9 pg (28.0-34.0); Mean Platelet Volume 10.2 fL (7.4-10.4); Monocytes # 0.9 10^3/uL (0.2-0.9); Monocytes % 7.4 %; Neutrophils # 9.29 10^3/uL (1.8-7.7); Neutrophils % 73.1 %; Nucleated Red Blood Cells % 0 %; Platelet Count 503 10^3/cmm (130-400); Red Blood Count 4.28 10^6/uL (4.1-5.3); Red Cell Distribution Width 13.7 % (12.1-15.1); White Blood Count 12.7 10^3/uL (4.0-10.0)
[2021-03-23 07:08] LABS: Fibrinogen 435 mg/dL (174-498)
[2021-03-23 07:11] LABS: D Dimer 0.61 ug/mIFEU (0-0.59)
[2021-03-23 07:14] LABS: Alanine Aminotransferase 26 U/L (0-33); Alkaline Phosphatase 104 IU/L (35-105); Anion Gap 10.8 (5-19); Aspartate Amino Transferase 22 U/L (0-32); Blood Urea Nitrogen 18 mg/dL (8-23); Calcium 8.4 mg/dL (8.5-10.5); Carbon Dioxide 32 mmol/L (22-29); Chloride 96 mmol/L (98-107); Creatine Phosphokinase 37 U/L (26-192); Globulin 2.9 g/dL (1.3-4.6); Glucose 94 mg/dL (65-115); Lactate Dehydrogenase 313 U/L (135-214); Osmolality Calculated 282 mOsm/kg (285-295); Potassium 3.8 mmol/L (3.5-5.1); Sodium 135 mmol/L (136-145); Total Bilirubin 0.6 mg/dL (0.15-1.2); Total Protein 5.9 g/dL (6.6-8.7)
[2021-03-23 07:31] LABS: Ferritin 1864 ng/mL (15-150)
[2021-03-23] MEDS: budesonide 0.5 mg/2 mL Neb INHALATION ×2 (08:01→19:53)
[2021-03-23] MEDS: benzonatate 100 mg Capsule PO ×3 (09:10→20:35)
[2021-03-23] MEDS: ascorbic acid 500 mg Tablet 1000 MG PO ×2 (09:10→17:44)
[2021-03-23] MEDS: fluconazole 100 mg Tablet 200 MG PO (09:10)
[2021-03-23] MEDS: FUROsemide 20 mg Tablet 40 MG PO (09:10)
[2021-03-23] MEDS: pantoprazole DR 40 mg Tablet PO (09:10)
[2021-03-23] MEDS: carvedilol 12.5 mg Tablet PO ×2 (09:10→17:44)
[2021-03-23] MEDS: ferrous gluconate 324 mg Tablet PO ×2 (09:10→17:44)
[2021-03-23] MEDS: zinc gluconate 50 mg Tablet PO (09:10)
--- NOTE | 2021-03-23 11:17 | PC.SOCIAL ---
IMM UPDATE Gave patient IMM update. Verbalized understanding. 03/23/21 @ 0936. Initialed, dated, timed and placed in chart.
[2021-03-23] MEDS: dexamethasone 4 mg/mL INJ 6 MG IVP (11:55)
--- NOTE | 2021-03-23 11:58 | PC.NURSE ---
1000 PRIMAXIN NOT GIVEN 0400 Primaxin was pulled and scanned by search marketing analyst but not given d/t no IV access. Infusion paused in NOV. IV access obtained around 1200 and previously pulled and paused medication was given.
--- NOTE | 2021-03-23 13:13 | P.PN_ITS ---
Subjective Subjective: Interval history: Documents overnight. Patient seen on [facility] floor. Doing a lot better. Currently on 2 L. Denies any nausea vomiting, headache. Good energy levels. Working with incentive spirometry and flutter valve. Appetite good. Medications: Reviewed: Yes Vitals/I&O/Wt Last Vital Signs Temp 98.0 F 03/23/21 10:00 Pulse 79 03/23/21 11:40 Resp 20 H 03/23/21 11:30 BP 132/82 03/23/21 10:00 Pulse Ox 95 03/23/21 11:30 03/22/21 03/23/21 03/23/21 22:59 06:59 14:59 Intake Total 440 / 1360 0 / 1360 360 / 360 Balance 440 / 285 0 / 285 360 / 360 Weight last 48 hrs Weight 85.275 kg Weight 91.081 kg Physical Exam Narrative: EXAM NARRATIVE: General: No acute distress, AO x3, heated high flow, feeling better. HEENT: PERRLA, pupils bilaterally equal and reactive Chest: Normal vesicular breath sounds, b/l diffuse ronchi all over lung field. Equal good air entry bilaterally CVS: S1-S2 regular, no murmurs, no tachycardia, no gallops, no rubs Abdomen: Soft, nontender, no organomegaly, bowel sounds present Neuro: No focal deficits, no facial deformity, AO x3, power 5/5 in all limbs Urinary Catheter Management^: Garcia: Cath Placed During This Visit: yes, but has since been removed by the nurse Reason for Continuing Indwelling Catheter: Accurate Measurement of Urinary Output in Critically Ill Patients Urinary Catheter Date of Insertion: 03/17/21 Urinary Catheter Time of Insertion: 08:45 Date Urinary Catheter Removed: 03/22/21 Time Urinary Catheter Discontinued: 11:00 Data : 03/23/21 06:26 03/23/21 06:26 Micro: Microbiology 03/19/21 04:35 Gram Stain - Final Sputum - Expectorated Sputum Sputum Culture - Final Maryan albicans A&P Assessment and plan (1) Pneumonia due to 2019-nCoV: Status: Acute (2) ARDS survivor: Status: Acute (3) Acute respiratory failure with hypoxia: Status: Acute (4) Hyponatremia: Status: Acute (5) Mixed hyperlipidemia: Status: Chronic (6) GERD (gastroesophageal reflux disease): Status: Chronic Qualifiers: Esophagitis presence: esophagitis presence not specified Qualified Code(s): K21.9 - Gastro-esophageal reflux disease without esophagitis Acute respiratory distress hypoxemia due to COVID-19 pneumonia?resolved. Acute hypoxic respiratory failure: Improving. Oxygen supplementation keeping saturation over 90%. Home O2 evaluation prior to discharge. Post Actemra. Inflammatory markers trending down so we will hold off on second dose for now. Continue antiviral treatment with remdesivir for 5 days. Last dose on March 20. Dexamethasone 6 mg IV QD Duoneb q4h, budesonide bid. Incentive spirometry, flutter valve. Vit c, zinc, tessalon. Oxygen supplementation keeping saturation over 92%. Procal elevated. High likely of super imposed bacterial infection. Pro-Tigre trending down, MRSA swab, bacterial antigen, urine Legionella negative. Sputum culture growing yeast. Continue with imipenem. Day7 today. On discharge we will switch over to Augmentin and Levaquin to finish up the course. Continue with Diflucan 20 mg daily. Day 3 today. C/w full dose lovenox as patient is critically sick. Patient will most likely need 14 days of anticoagulation post discharge. Contine to monitor inflammatory markers. Precedex for anxiety. No more ativan to avoid decrease respiratory drive. Echocardiogram done earlier in the admission shows an EF of 68% with grade 1 diastolic dysfunction, mild MR. Keep patient net negative. Fluid restriction 1500 cc. Overall patient is 3.5 L positive since admission. Lasix 40 mg oral daily. Appreciate pulmonology recommendations. Paroxysmal Atrial Fibrillation - converted to NSR s/p Amiodarone bolus Coreg dose of prior to 12.5 mg twice daily depending on blood pressures today. Lovenox full dose HTN: No h/o HTN. Goal BP less than 140/90 mmhg. Blood pressure is mildly elevated. Increase Coreg to 12.5 mg twice daily. Continue to monitor. Acute Renal Failure - resolved Creatinine 1.5 - 0.9 Med rec done for nephrotoxic drug Monitor u/o Renal dosing of meds Replete potassium for hyponatremia today. Hyponatremia Resolved Dyslipidemia Lipitor 40 mg PO daily Hold if worsening LFTs CMP in am Continue with IV iron supplementation for iron deficiency anemia. Day 4/5 today. GERD Protonix 40 mg PO daily DVT ppx Lovenox Full dose. FC GI soft diet. Transfer to general medical floor. Discharge planning: If patient continues to do well can plan to discharge patient in next few days after having home O2 evaluation. Attestations Medical Necessity Statement*: Patient requires further hospitalization for management of hypoxia, ARDS survivor in setting of COVID-19 pneumonia, superadded bacterial infection. 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
[2021-03-23] MEDS: HYDROcodone-acetaminophen 5-325 mg Tablet 1 TAB PO (17:44)
[2021-03-23] MEDS: atorvastatin 40 mg Tablet PO (20:35)
[2021-03-24] VITALS (14 sets, daily range): BP systolic 116–138; BP diastolic 75–84; PULSE 64–85; RESP 14–18; TEMP 36.8–36.9; O2SAT 87–94
[2021-03-24] MEDS: ipratropium-albuterol 3 mL Neb INHALATION ×4 (00:19→11:05)
--- NOTE | 2021-03-24 04:35 | PC.NURSE ---
0400 Vital Signs unable to record vital signs due to someone else in the chart. this nurse and pts's care nurse both are unable to document vital signs temp 98.2 pulse 81 resp 18 o2 92% BP 116/75
[2021-03-24] MEDS: enoxaparin 100 mg/mL Syringe 90 MG SUBCUT (06:26)
[2021-03-24] MEDS: budesonide 0.5 mg/2 mL Neb INHALATION (08:07)
[2021-03-24] MEDS: FUROsemide 20 mg Tablet 40 MG PO (08:25)
[2021-03-24] MEDS: ferrous gluconate 324 mg Tablet PO (08:25)
[2021-03-24] MEDS: carvedilol 12.5 mg Tablet PO (08:26)
[2021-03-24] MEDS: benzonatate 100 mg Capsule PO (08:26)
[2021-03-24] MEDS: pantoprazole DR 40 mg Tablet PO (08:27)
[2021-03-24] MEDS: zinc gluconate 50 mg Tablet PO (08:27)
[2021-03-24] MEDS: ascorbic acid 500 mg Tablet 1000 MG PO (08:27)
[2021-03-24] MEDS: dexamethasone 4 mg/mL INJ 6 MG IVP (08:28)
[2021-03-24] MEDS: fluconazole 100 mg Tablet 200 MG PO (08:30)
--- NOTE | 2021-03-24 11:02 | PM.DCS ---
Discharge Providers Date of Admission: 03/16/21 08:48 Date of Discharge: March 24, 2021 Attending Provider at Admission: Justin Christopher Attending Provider at Discharge: Darrell Lawson MD Consults: Pulmonology: Dr. Cisnerosr Primary Care Provider: ROBE Bailey Diagnoses at Discharge Discharge Diagnosis (1) Pneumonia due to 2019-nCoV: Status: Acute (2) ARDS survivor: Status: Acute (3) Acute respiratory failure with hypoxia: Status: Acute (4) Hyponatremia: Status: Acute (5) Mixed hyperlipidemia: Status: Chronic (6) GERD (gastroesophageal reflux disease): Status: Chronic Qualifiers: Esophagitis presence: esophagitis presence not specified Qualified Code(s): K21.9 - Gastro-esophageal reflux disease without esophagitis Reason for Visit Reason for Visit: COVID +; RESP DISTRESS Hospital Course Hospital Course Ebony Kwan is a 66 year old female with a PMH significant for anxiety, depression, GERD, mixed urinary incontinence, HTN, hyperlipidemia, remote tobacco abuse and recent diagnosis of COVID-19 infection who presented to the hospital with respiratory distress ON 03/16/21, apparently patient had a COVID-19 test performed 5 days prior at an outside facility which positive. Also complained of fever, chills, nausea and productive cough. Upon arrival to ER she was noted to have oxygen saturation 70s, RR 26, hemodynamically stable, Laboratory significant for BUN 33 and creatinine of 1.5. Prior creatinine of 0.9 in 2019. Initial lactic acid of 3.4 with a repeat of 2.7. slightly elevated AST of 39, ALT of 34 and alkaline phosphatase of 110. Creatinine kinase 176. Chest x-ray was performed which showed multifocal pneumonia which was also noted on CT angio chest. No evidence of pulmonary embolism. Scattered enlarged mediastinal lymph nodes measuring up to 14 mm were noted. Patient went to the ICU for ARDS with COVID-19 pneumonia and superadded bacterial infection. She was started on treatment with IV remdesivir and dexamethasone along with nebulization and strict pulmonary toilet. She was given 1 dose of Actemra on admission. She was started on broad-spectrum antibiotics. Sputum culture grew Maryan. She has also been on Diflucan. Patient responded remarkably to the treatment and is currently on room air. Patient has been working well with incentive spirometry. Echocardiogram 1 was done while she was in the hospital she was found to have grade 1 diastolic dysfunction for which she received as needed Lasix. She is been discharged on oral Lasix tablet. She is been discharged in hemodynamically stable condition with advised to take Augmentin and Levaquin for next 5 days, Diflucan for next 7 days, Eliquis 2.5 mg twice daily for next 14 days, vitamin C and zinc along with dexamethasone oral for next 7 days as well. Patient has been advised to come back to the ER if she spikes a fever of 101 again or she is having difficulty in breathing again. Home O2 evaluation has been done prior to discharge. Physical Exam Narrative: EXAM NARRATIVE: General: No acute distress, AO x3, heated high flow, feeling better. HEENT: PERRLA, pupils bilaterally equal and reactive Chest: Normal vesicular breath sounds, b/l diffuse ronchi all over lung field. Equal good air entry bilaterally CVS: S1-S2 regular, no murmurs, no tachycardia, no gallops, no rubs Abdomen: Soft, nontender, no organomegaly, bowel sounds present Neuro: No focal deficits, no facial deformity, AO x3, power 5/5 in all limbs Urinary Catheter Management^: Garcia: Cath Placed During This Visit: yes, but has since been removed by the nurse Reason for Continuing Indwelling Catheter: Accurate Measurement of Urinary Output in Critically Ill Patients Urinary Catheter Date of Insertion: 03/17/21 Urinary Catheter Time of Insertion: 08:45 Date Urinary Catheter Removed: 03/22/21 Time Urinary Catheter Discontinued: 11:00 Discharge Data Data Completed and Pending: Completed Studies During Hospitalization Category Date Time Status CT angio chest PE protcl [id number] Stat Cat Scan 03/16/21 07:57 Completed XR chest 1V jennifer ble [id number] Q48H Exams 03/19/21 06:00 Completed XR chest 1V jennifer ble [id number] Q48H Exams 03/21/21 06:00 Completed XR chest 1V jennifer ble 29681 Q48H Exams 03/23/21 06:00 Completed XR chest 1V jennifer ble [id number] Stat Exams 03/16/21 07:30 Completed CV echo complete* [id number] Routine Ultrasound 03/18/21 14:45 Completed Pending at discharge Category Date Time Status Sputum Culture an d Gram Stain Stat Lab 03/16/21 07:30 Uncollected Vitals: Last Vital Signs Temp 98.3 F 03/24/21 08:00 Pulse 71 03/24/21 08:00 Resp 14 03/24/21 08:00 BP 138/84 03/24/21 08:00 Pulse Ox 93 03/24/21 08:00 Discharge Plan Discharge Patient Disposition: Home Condition: Stable Prescriptions: New fluconazole 100 mg Tablet 200 mg PO DAILY 7 Days Qty: 7 RF: 0 carvedilol 12.5 mg Tablet 12.5 mg PO BID 30 Days Qty: 60 RF: 0 Vitamin C 500 mg Tablet 1,000 mg PO BID 14 Days Qty: 56 RF: 0 zinc gluconate 50 mg Tablet 50 mg PO DAILY 30 Days Qty: 30 RF: 0 furosemide 20 mg Tablet 40 mg PO DAILY@0800 Qty: 60 RF: 0 ferrous gluconate 324 mg (37.5 mg iron) Tablet 324 mg PO BIDWM 30 Days Qty: 60 RF: 0 Benzonatate [Tessalon Pearls] 100 mg PO TID PRN (Reason: cough) Qty: 10 RF: 0 Eliquis 2.5 mg tablet 2.5 mg PO BID 14 Days Qty: 28 RF: 0 dexamethasone 6 mg tablet 6 mg PO DAILY Qty: 7 RF: 0 Augmentin 500-125 mg tablet 1 tab PO BID Qty: 10 RF: 0 levofloxacin 500 mg tablet 500 mg PO DAILY 5 Days Qty: 5 RF: 0 Continued ibuprofen 200 mg PO Q6H PRN (Reason: Pain) RF: 0 acetaminophen 325 mg PO Q6H PRN (Reason: Pain) RF: 0 atorvastatin 40 mg tablet 40 mg PO DAILY Qty: 90 RF: 1 pantoprazole 40 mg tablet,delayed release (DR/EC) 40 mg PO DAILY Qty: 90 RF: 1 solifenacin [Vesicare] 10 mg tablet 10 mg PO DAILY Qty: 90 RF: 0 Discontinued propranolol 20 mg tablet 20 mg PO BID Qty: 180 RF: 1 Discharge Orders: Discharge Order (Routine); Ordered 03/24/21 Ordered By: Darrell Lawson Referrals: Naheed Bowman, [employer] [facility] [Primary Care Provider] - 1-3 days (Please call Thursday to schedule a follow up appoinment. ) Datar,Hammad Lucas MD [Physician] - 1 month (Possible PFT post COVID) Patient Instructions: Benzonatate (By mouth), Iron Supplements (By mouth), Corticosteroids (By mouth), Furosemide (By mouth), Zinc Sulfate (By mouth), Amoxicillin/Clavulanate Potassium (By mouth), Fluconazole (By mouth), Ascorbic Acid (Vitamin C) (By mouth), Levofloxacin (By mouth), Carvedilol (By mouth), Apixaban (By mouth), Opioid Safety, Pneumonia Stoplight, Pneumonia - Viral Activity Restrictions/Additional Instructions: Follow-up with your primary care provider within next 1 to 3 days. Please take Eliquis which is present for next 2 weeks. Begin Advair and Spiriva for next 2 weeks. Follow-up with pulmonology within next 1 month for a PFT. If you have any fever more than 101 Fahrenheit or difficulty in breathing again please come back to the ER. You will be on antibiotics Augmentin and levofloxacin for next 5 days along with Diflucan which is the antifungal for next 7 days. Discharge Attestations Time Spent in Discharge Care*: greater than 30 min Specific Discharge Activities: educating patient, discussing with pcp/other providers, discussing with manager rn case/social workers/dc planners, documenting/other paperwork and evaluating patient/reviewing data Status at Discharge: Cognitive status at discharge: cognitively intact, Behavioral status at discharge: cooperative, Functional status at discharge: independent ambulation Overall status at discharge: patient is back to baseline Quality Metrics Clinical Quality Measures During this hospital stay, did patient experience: None Coding Level of Care Code Acute Chg FW DC note Diagnoses Pneumonia due to 2019-nCoV U07.1; J12.82 ARDS survivor Z87.09 Acute respiratory failure with hypoxia J96.01 Hyponatremia E87.1 Mixed hyperlipidemia E78.2 GERD (gastroesophageal reflux disease) K21.9 Esophagitis presence: esophagitis presence not specified
[2021-03-24] MEDS: acetaminophen 325 mg Tablet 650 MG PO (13:13)
== END 2021-03-24 14:55 | disposition home or self-care (01) | DRG 177 ==
LOC: ER 08:48 → ICU 09:08 → MEDSURG 03-22 12:57
PROVIDERS: Admitting Provider Hospitalist; Emergency Provider Family Medicine; Family Provider Nurse Practitioner; PCP Nurse Practitioner; Visit Provider Student in an Organized Health Care Education/Training Program
DX: U07.1 COVID-19 (principal); J12.82 Pneumonia due to coronavirus disease 2019; J96.01 Acute respiratory failure with hypoxia; J15.9 Unspecified bacterial pneumonia; E87.1 Hypo-osmolality and hyponatremia; N17.9 Acute kidney failure, unspecified; E87.2 Acidosis; F41.8 Other specified anxiety disorders; K21.9 Gastro-esophageal reflux disease without esophagitis; N39.46 Mixed incontinence; I10 Essential (primary) hypertension; Z87.891 Personal history of nicotine dependence; R59.0 Localized enlarged lymph nodes; E04.9 Nontoxic goiter, unspecified; E78.2 Mixed hyperlipidemia; E66.9 Obesity, unspecified; Z68.31 Body mass index [BMI] 31.0-31.9, adult; I48.0 Paroxysmal atrial fibrillation; B37.9 Candidiasis, unspecified; E61.1 Iron deficiency; E87.6 Hypokalemia
CPT/HCPCS: 36415; 36600; 51702; 71045; 71275; 80051; 80053; 80202; 81001; 82330; 82550; 82570; 82728; 82805; 83036; 83520; 83540; 83550; 83605; 83615; 83880; 83935; 84145; 84300; 84439; 84443; 84481; 85007; 85025; 85378; 85384; 85610; 86140; 86403; 87040; 87070; 87086; 87106; 87205; 87426; 87449; 87635; 87641; 93005; 93306; 94640; 94660; 96365; 96367; 96372; 96375; 97161; 97530; 99291; J0282; J0743; J1100; J1644; J1650; J1756; J1940; J1956; J2060; J2405; J2543; J3262; J3370; J3490; J7030; J7040; J7060; J7626; Q9967

== ENCOUNTER → 2021-04-08 15:02 | Outpatient (BNVA) | payer MEDICARE, SELFPAY | PROVIDERS: Family Provider Nurse Practitioner; PCP Nurse Practitioner; Visit Provider Nurse Practitioner | DX: I10 Essential (primary) hypertension (principal); E61.1 Iron deficiency | CPT/HCPCS: 80053; 83540; 84443; 85025 ==

== ENCOUNTER → 2021-09-23 08:57 | Outpatient (BNVA) | payer MEDICARE, SELFPAY | PROVIDERS: Family Provider Nurse Practitioner; PCP Nurse Practitioner; Visit Provider Nurse Practitioner | DX: I10 Essential (primary) hypertension (principal) | CPT/HCPCS: 80053; 80061; 81000; 84443; 85025; 86800 ==

== ENCOUNTER 2021-10-14 15:14 | Outpatient (CLI) | payer MEDICARE, SELFPAY ==
--- NOTE | 2021-10-14 15:30 | MM_ITS ---
WS: [email or web address] Bilateral screening digital mammogram, 10/14/2021 Clinical Data: Z12.39 - Encounter for other screening for malignant neop... Comparison: 10/03/2011, 08/01/2010, 05/09/2009. Findings: The breast parenchymal pattern shows fibroglandular tissue No spiculated masses or clustered calcific ations are seen. There are no secondary signs of carcinoma. There are calcifications in the kiser of small vessels. MM/[place] [id number] Impression: 1. Negative bilateral mammogram unchanged. 2. Recommend annual screening mammograms. BIRADS: 1-Negative FOLLOW UP: 1 Year Follow-up The CAD metal checker was used.
== END 2021-10-14 15:15 | disposition home or self-care (01) ==
LOC: RADSHAW 15:23
PROVIDERS: PCP Nurse Practitioner; Visit Provider Nurse Practitioner
DX: Z12.31 Encounter for screening mammogram for malignant neoplasm of breast (principal)
CPT/HCPCS: 77067

== ENCOUNTER → 2022-02-10 09:03 | Outpatient (BNVA) | payer MEDICARE, SELFPAY | PROVIDERS: PCP Nurse Practitioner; Visit Provider Nurse Practitioner | DX: E78.2 Mixed hyperlipidemia (principal); E61.1 Iron deficiency; I10 Essential (primary) hypertension; K21.9 Gastro-esophageal reflux disease without esophagitis; N39.46 Mixed incontinence; E66.9 Obesity, unspecified | CPT/HCPCS: 80053; 80061; 81000; 83540; 85025 ==

== ENCOUNTER → 2022-10-17 11:13 | Outpatient (BNVA) | payer MEDICARE, SELFPAY | PROVIDERS: PCP Nurse Practitioner; Visit Provider Nurse Practitioner | DX: E61.1 Iron deficiency (principal); I10 Essential (primary) hypertension; N39.46 Mixed incontinence | CPT/HCPCS: 80053; 80061; 81000; 83540; 85025 ==

== ENCOUNTER 2022-10-31 07:40 | Outpatient (CLI) | payer MEDICARE, SELFPAY ==
--- NOTE | 2022-10-31 07:53 | MM_ITS ---
WS: [email or web address] BILATERAL SCREENING DIGITAL TOMOSYNTHESIS MAMMOGRAM WITH CAD HISTORY: Screening exam. COMPARISON: 10/14/2021, 10/03/2011 Bilateral CC and MLO views with tomosynthesis and synthetic mammography submitted. Computer aided det ection analyzed. Breast composition: There are scattered areas of fibroglandular density. No suspicious masses, microc alcifications or architectural distortion. Benign breast arterial calcifications. No suspicious mariela s or distortion. MM/[place] [id number] IMPRESSION: BI-RADS: 2-Benign FOLLOW UP: 1 Year Follow-up
== END 2022-10-31 07:41 | disposition home or self-care (01) ==
LOC: RAD 07:40
PROVIDERS: PCP Nurse Practitioner; Visit Provider Nurse Practitioner
DX: Z12.31 Encounter for screening mammogram for malignant neoplasm of breast (principal)
CPT/HCPCS: 77063; 77067

== ENCOUNTER 2023-03-13 10:14 | Outpatient (CLI) | payer MEDICARE, SELFPAY ==
[2023-03-13 11:04] LABS: Bilirubin Urine Neg (Negative); Blood Urine 2+ (Negative); Glucose Urine UA Norm (Normal); Ketones Urine Negative (Negative); Nitrate Urine Negative (Negative); Protein Urine Neg (Negative); Specific Gravity, Urine 1.005 (1.005-1.030); Urine Appearance Cloudy (CLEAR); Urine Color Straw (Yellow); Urobilinogen Urine Norm (Negative); pH Urine 7 (5-7)
[2023-03-13 11:05] LABS: Add Urine Culture? Yes; Add Urine Microscopic? YES; Bacteria Urine 2+ /hpf; Leukocyte Esterase Urine 2+ (Negative); RBC Urine 0-4 /hpf (0-2); Squamous Epithelial Cell Urine 0-4 /hpf (0-5); WBC Urine TOO NUMEROUS TO CNT /hpf (0-5)
== END 2023-03-13 10:15 | disposition home or self-care (01) ==
PROVIDERS: PCP Nurse Practitioner; Visit Provider Nurse Practitioner
DX: I10 Essential (primary) hypertension (principal)
CPT/HCPCS: 81001; 87077; 87086; 87186

== ENCOUNTER → 2023-04-06 09:34 | Outpatient (BNVA) | payer MEDICARE, SELFPAY | PROVIDERS: PCP Nurse Practitioner; Visit Provider Nurse Practitioner | DX: E78.2 Mixed hyperlipidemia (principal); E61.1 Iron deficiency; I10 Essential (primary) hypertension; E55.9 Vitamin D deficiency, unspecified | CPT/HCPCS: 80061; 81000; 82306; 82607; 84443; 85025; 85651; 86140 ==

== ENCOUNTER → 2023-09-30 11:50 | Outpatient (BNVA) | payer MEDICARE, SELFPAY | PROVIDERS: PCP Nurse Practitioner; Visit Provider Nurse Practitioner | DX: I10 Essential (primary) hypertension (principal); E78.2 Mixed hyperlipidemia | CPT/HCPCS: 80053; 80061; 81003; 84443; 85025; 87086; 87184 ==

== ENCOUNTER 2023-10-20 11:25 | Outpatient (CLI) | payer MEDICARE, SELFPAY ==
[2023-10-22 06:58] LABS: Clostridium Difficile PCR NOT DETECTED (NOT DETECTED)
== END 2023-10-20 11:26 | disposition home or self-care (01) ==
LOC: LAB 11:25
PROVIDERS: PCP Nurse Practitioner; Visit Provider Nurse Practitioner
DX: R19.7 Diarrhea, unspecified (principal)
CPT/HCPCS: 87493

== ENCOUNTER 2023-11-02 09:03 | Outpatient (CLI) | payer MEDICARE, SELFPAY ==
--- NOTE | 2023-11-02 09:05 | MM_ITS ---
WS: [email or web address] SCREENING DIGITAL TOMOSYNTHESIS MAMMOGRAM WITH CAD HISTORY: Z12.31 - Encounter for screening mammogram for malignant ... COMPARISON: 10/31/2022, 10/14/2021 and 10/03/2011 Bilateral CC and MLO with tomosynthesis views submitted. Synthetic mammography reviewed. Computer aid ed detection analyzed. Breast composition: There are scattered areas of fibroglandular density. No suspicious masses, microc alcifications or architectural distortion. Advanced arterial calcifications and a few scattered round punctate calcifications within each breast. IMPRESSION: MM/[place] [id number] BI-RADS: 2-Benign FOLLOW UP: 1 Year Follow-up
== END 2023-11-02 09:04 | disposition home or self-care (01) ==
LOC: RAD 09:03
PROVIDERS: PCP Nurse Practitioner; Visit Provider Nurse Practitioner
DX: Z12.31 Encounter for screening mammogram for malignant neoplasm of breast (principal)
CPT/HCPCS: 77063; 77067

== ENCOUNTER → 2024-04-20 12:18 | Outpatient (BNVA) | payer MEDICARE, OTHER, SELFPAY | PROVIDERS: PCP Nurse Practitioner; Visit Provider Nurse Practitioner | DX: I10 Essential (primary) hypertension (principal); E78.2 Mixed hyperlipidemia; E55.9 Vitamin D deficiency, unspecified | CPT/HCPCS: 80053; 80061; 82306; 84443 ==

== ENCOUNTER 2024-04-26 10:33 | Outpatient (CLI) | payer MEDICARE, OTHER, SELFPAY ==
--- NOTE | 2024-04-26 10:40 | XR_ITS ---
WS: [email or web address] XR knee RT 3V* [id number] REASON FOR EXAM: M25.50 - Pain in unspecified joint FINDINGS: Moderate narrowing of the medial knee joint space with moderate subchondral sclerosis osteophytosis. Osteophytosis. The lateral knee joint space is intact and relatively well preserved. There is moderate subchondral sclerosis and moderate marginal osteophytosis. Mild concave deformity o f the lateral tibial plateau. Moderate narrowing of the patellofemoral joint space osteophytosis of the patella and opposing femora l condyles. XR/XR knee RT 3V* [id number] IMPRESSION: Moderate to significant osteoarthritis of the right knee.
--- NOTE | 2024-04-26 10:40 | XR_ITS ---
WS: [email or web address] XR hip RT 2-3V wo/w pel* [id number] REASON FOR EXAM: M25.50 - Pain in unspecified joint FINDINGS: No fracture or focal bone lesion. Moderate narrowing of the right hip joint space. Moderate subchondral sclerosis and osteophytosis of the acetabulum. No soft tissue abnormality. XR/XR hip RT 2-3V wo/w pel* [id number] IMPRESSION: Moderate osteoarthritis of the right hip.
--- NOTE | 2024-04-26 10:40 | XR_ITS ---
WS: [email or web address] XR knee LT 3V* [id number] REASON FOR EXAM: M25.50 - Pain in unspecified joint FINDINGS: No fracture or focal bone lesion. Moderate narrowing of the medial joint space with moderate subchondral sclerosis and osteophytosis. The lateral joint space is intact and well preserved. Patellofemoral joint space is intact without significant narrowing. Moderate subchondral sclerosis and osteophytosis of the patella. No soft tissue abnormality. XR/XR knee LT 3V* [id number] IMPRESSION: Moderate osteoarthritis of the left knee.
--- NOTE | 2024-04-26 10:40 | XR_ITS ---
WS: [email or web address] XR hip LT 2-3V wo/w pel* [id number] REASON FOR EXAM: M25.50 - Pain in unspecified joint FINDINGS: No fracture or focal bone lesion. Mild narrowing of the joint space. Moderate subchondral sclerosis and osteophytosis of the acetabulum. Minimal osteophytosis of the femoral head. No soft tissue abnormality. XR/XR hip LT 2-3V wo/w pel* [id number] IMPRESSION: Mild osteoarthritis of the left hip.
== END 2024-04-26 10:34 | disposition home or self-care (01) ==
LOC: RAD 10:35
PROVIDERS: PCP Nurse Practitioner; Visit Provider Nurse Practitioner
DX: M17.0 Bilateral primary osteoarthritis of knee; M16.0 Bilateral primary osteoarthritis of hip
CPT/HCPCS: 73502; 73562

== ENCOUNTER → 2024-05-17 15:05 | Outpatient (BNVA) | payer MEDICARE, OTHER, SELFPAY | PROVIDERS: PCP Nurse Practitioner; Referring Provider Nurse Practitioner; Visit Provider Physician Assistant | DX: M25.561 Pain in right knee (principal); M25.562 Pain in left knee; M17.0 Bilateral primary osteoarthritis of knee | CPT/HCPCS: 20610; 73560; 73565; 99203; J3301 ==

== ENCOUNTER → 2024-08-15 09:22 | Outpatient (BNVA) | payer MEDICARE, OTHER, SELFPAY | PROVIDERS: PCP Nurse Practitioner; Referring Provider Nurse Practitioner; Visit Provider Internal Medicine | DX: L65.9 Nonscarring hair loss, unspecified (principal); R73.03 Prediabetes | CPT/HCPCS: 99204 ==

== ENCOUNTER → 2024-08-16 10:57 | Outpatient (BNVA) | payer MEDICARE, OTHER, SELFPAY | PROVIDERS: PCP Nurse Practitioner; Visit Provider Student in an Organized Health Care Education/Training Program | DX: M17.0 Bilateral primary osteoarthritis of knee | CPT/HCPCS: 99213 ==

== ENCOUNTER 2024-08-23 06:57 | Outpatient (CLI) | payer MEDICARE, OTHER, SELFPAY ==
[2024-08-23 08:37] LABS: Estmated Average Glucose 105; Hemoglobin A1C 5.3 % (4.0-6.0)
[2024-08-24 07:59] LABS: Dehydroepiandrosterone Sulfate 61 mcg/dL (9-118)
[2024-08-26 08:35] LABS: Thyroid Peroxidase Antobodies 1 IU/mL (<9)
[2024-08-26 08:38] LABS: Thyroglobulin AB <1 IU/mL (< or = 1)
== END 2024-08-23 06:58 | disposition home or self-care (01) ==
LOC: LAB 07:00
PROVIDERS: PCP Nurse Practitioner; Visit Provider Internal Medicine
DX: L65.9 Nonscarring hair loss, unspecified (principal); R73.03 Prediabetes
CPT/HCPCS: 36415; 82627; 83036; 84146; 84403; 86376; 86800

== ENCOUNTER → 2024-10-03 12:10 | Outpatient (BNVA) | payer MEDICARE, OTHER, SELFPAY | PROVIDERS: PCP Nurse Practitioner; Visit Provider Nurse Practitioner | DX: I10 Essential (primary) hypertension (principal); E78.2 Mixed hyperlipidemia | CPT/HCPCS: 80053; 80061; 85025 ==

== ENCOUNTER 2024-10-17 08:07 | Outpatient (CLI) | payer MEDICARE, OTHER, SELFPAY ==
--- NOTE | 2024-10-17 09:00 | CT_ITS ---
WS: [email or web address] CT ABDOMEN AND PELVIS WITH CONTRAST HISTORY: K21.9 - Gastro-esophageal reflux disease without esophagitis TECHNIQUE: Imaging performed of the abdomen and pelvis with IV contrast. Single phase imaging of the abdomen. Coronal and sagittal reformats are submitted. All CT scans at [facility] use at [address] one of these dose optimization techniques: automated exposure control; mA and/or kV adjustment per patient size (includes targeted exams where dose is matched to clinical indication); or iterative re construction. IV CONTRAST: Omnipaque 350; 100 mL IV. Oral contrast: Yes. DLP: 1069.09 mGy.cm COMPARISON: None available. Lower thorax: Well-circumscribed 10 mm nodule at the RIGHT lung base within the RIGHT middle lobe. Th ere may be a central developing calcification. Stable 4 mm noncalcified nodule LEFT lung base. Heart is normal size. No hiatal hernia. Liver/biliary system: Normal size with no intrahepatic dilatation. Gallbladder: Status post cholecystectomy. Pancreas: Normal size pancreas and pancreatic duct. No adjacent inflammation. Spleen: Normal size spleen. No mass or infarct. Adrenal glands: Normal. Right kidney: Mild atrophy. Mild anterior rotation of the renal pelvis. No obstruction. Left kidney: Normal. Aorta: Mild atherosclerosis with no aneurysm. Lymphadenopathy: None. Free fluid: None. GI tract: Stomach is well distended with oral contrast. No small bowel obstruction. Chronic constipat ion. Normal appendix. Mild sigmoid diverticulosis. Abdominal wall: Unremarkable abdominal wall. No hernia. Pelvis: No free fluid or adenopathy within the pelvis. Negative urinary bladder. Uterus is present. Bones: Unremarkable. CT/CT abdomen pelvis w con* [id number] IMPRESSION: 1. Status post cholecystectomy. 2. New 10 mm nodule at the RIGHT lung base. Nodules within the RIGHT middle lo be. Chest CT performed on the same day recommended follow-up in 6 months. 3. No renal obstruction. 4. Mild constipation. 5. Mild atherosclerosis aorta. 6. Normal appendix.
--- NOTE | 2024-10-17 09:00 | CT_ITS ---
WS: [email or web address] CT chest wo con [id number] HISTORY: R91.1 - Solitary pulmonary nodule TECHNIQUE: Axial imaging performed through the thorax. Coronal and sagittal reformats are submitted. All CT scans at [facility] use at least one of these dose optimization techniques: automated exposure control; mA and/or kV adjustment per patient size (includes targeted exams where dose is mat ched to clinical indication); or iterative reconstruction. CONTRAST: None DLP: 1069.09 mGy COMPARISON: 03/16/2021, 10/16/2011 Lungs and central airway: No interval change in the noncalcified 4 mm nodule LEFT lower lobe. 2 mm no dule RIGHT lower lobe is also stable. Stable RIGHT perifissural nodule. New 9 mm nodule at the lung b ase in the RIGHT middle lobe since 2011. Nodule was not present on the study from 03/16/2021. Central calcification is developing. Pleura: Normal. No pleural effusion. Heart and pericardium: Normal size heart with no pericardial effusion. Mediastinum and sid: No mediastinum or hilar adenopathy. Vessels: Mild atherosclerosis aorta. No aneurysm. Normal size pulmonary artery. Chest wall and lower neck: No soft tissue masses. Upper abdomen: Prior cholecystectomy. Mild pancreatic atrophy. No adrenal mass. Constipation transver se colon. Osseous structures: Mild increase in thoracic kyphosis. CT/CT chest wo con [id number] IMPRESSION: 1. New, 9 mm round nodule RIGHT middle lobe. Central calcification within the nodule. This may be benign granuloma. Recommend follow-up chest CT in 6 months. 2. Remaining pulmonary nodules are stable. 3. Mild atherosclerosis aorta. 4. No adenopathy. 5. Prior cholecystectomy.
[2024-10-17] MEDS: iohexol 350 mg/mL 500 mL Btl (per mL) PO (09:19)
[2024-10-17] MEDS: iohexol 350 mg/mL 500 mL Btl (per mL) IV (09:23)
== END 2024-10-17 08:08 | disposition home or self-care (01) ==
LOC: RAD 08:07
PROVIDERS: PCP Nurse Practitioner; Visit Provider Nurse Practitioner
DX: K21.9 Gastro-esophageal reflux disease without esophagitis (principal); J98.4 Other disorders of lung; R91.8 Other nonspecific abnormal finding of lung field; I70.0 Atherosclerosis of aorta; Z90.49 Acquired absence of other specified parts of digestive tract; K86.89 Other specified diseases of pancreas; K59.00 Constipation, unspecified; M40.294 Other kyphosis, thoracic region; N26.1 Atrophy of kidney (terminal); R93.421 Abnormal radiologic findings on diagnostic imaging of right kidney; K57.30 Diverticulosis of large intestine without perforation or abscess without bleeding
CPT/HCPCS: 71250; 74177

== ENCOUNTER → 2024-10-19 14:09 | Outpatient (BNVA) | payer MEDICARE, OTHER, SELFPAY | PROVIDERS: PCP Nurse Practitioner; Referring Provider Internal Medicine; Visit Provider Nurse Practitioner Family | DX: L65.0 Telogen effluvium (principal); D23.39 Other benign neoplasm of skin of other parts of face | CPT/HCPCS: 99204 ==

== ENCOUNTER → 2025-04-03 10:52 | Outpatient (BNVA) | payer MEDICARE, OTHER, SELFPAY | PROVIDERS: PCP Nurse Practitioner; Visit Provider Nurse Practitioner | DX: I10 Essential (primary) hypertension (principal); E55.9 Vitamin D deficiency, unspecified | CPT/HCPCS: 80053; 80061; 82306; 84443 ==

== ENCOUNTER 2025-04-17 13:22 | Outpatient (CLI) | payer MEDICARE, OTHER, SELFPAY ==
--- NOTE | 2025-04-17 13:30 | XR_ITS ---
WS: [email or web address] DEXA (DUAL ENERGY X-RAY ABSORPTIOMETRY) Bone mineral density was performed using a [employer] D[employer] machine. HISTORY: Z78.0 - Asymptomatic menopausal state COMPARISON: None available. Lumbar spine BMD (L1-L4): 1.119 g/cm2 T score: -0.5 Z score: 0.5 Total hip BMD: Left: 0.929 g/cm2. T score: -0.6 Z score: 0.3 Right: 0.892 g/cm2. T score: -0.9 Z score: 0.0 10 year probability of a major osteoporotic fracture is 9.6%. XR/XR DEXA axial skeleton* [id number] IMPRESSION: NORMAL BONE MINERAL DENSITY based upon the WHO classification for females.
--- NOTE | 2025-04-17 14:00 | MM_ITS ---
WS: [email or web address] BILATERAL 3D TOMOSYNTHESIS DIGITAL SCREENING MAMMOGRAPHY WITH CAD CLINICAL INFORMATION: Z12.31 - Encounter for screening mammogram for malignant ... HISTORY: Screening mammogram. No current complaints. COMPARISON: 2023 TECHNIQUE: Bilateral CC and MLO views. FINDINGS: Scattered fibroglandular densities bilaterally. No suspicious focal mass, asymmetry, calcifications, or architectural distortion. No evidence of malignancy. Vascular calcification MM/MM scr BI tomosynthesis [id number] IMPRESSION: DENSITY: There are scattered areas of fibroglandular density. BI-RADS: 2 - Benign. FOLLOW UP: 1 Year Follow-up Recommend return to annual screening mammography.
--- NOTE | 2025-04-17 14:30 | CT_ITS ---
WS: [email or web address] CT chest wo con [id number] HISTORY: R91.1 - Solitary pulmonary nodule TECHNIQUE: Axial imaging performed through the thorax. Coronal and sagittal reformats are submitted. All CT scans at [facility] use at least one of these dose optimization techniques: automated exposure control; mA and/or kV adjustment per patient size (includes targeted exams where dose is matched to clinical indication); or iterative reconstruction. CONTRAST: None DLP: 417.12 mGy.cm COMPARISON: 10/17/2024, 10/16/2011 and 03/16/2021 Lungs and central airway: Well-circumscribed nodule in the RIGHT middle lobe measures 11 x 13 mm. This nodule slightly abuts the inferior major fissure. There is developing calcification in the central nodule. Minimal change in size since the prior study. Stable micronodules in the posterior LEFT upper lobe 4 mm noncalcified nodule LEFT lower lobe stable since 2011. There are few additional small nodules. Some of these are calcified. Pleura: Normal. No pleural effusion. Heart and pericardium: Normal size heart with no pericardial effusion. Mediastinum and sid: Small mediastinal and hilar lymph nodes. Vessels: Mild atherosclerosis aorta. No aneurysm. Normal size pulmonary artery. Chest wall and lower neck: No soft tissue masses. Upper abdomen: Prior cholecystectomy. Normal adrenal glands. Osseous structures: Mild increase in thoracic kyphosis. CT/CT chest wo con [id number] IMPRESSION: 1. No significant interval change in the partially calcified nodule RIGHT midd le lobe now measuring 11 x 13 mm. Recommend additional 6-month chest CT follow- up to demonstrate long-term stability. 2. There are a few additional micronodules which are stable. Some of these are calcified and some are noncalcified. These nodules are stable over long-term. 3. No mediastinal or hilar pathologically enlarged lymph nodes.
== END 2025-04-17 13:23 | disposition home or self-care (01) ==
LOC: RAD 13:23
PROVIDERS: PCP Nurse Practitioner; Visit Provider Nurse Practitioner
DX: Z12.31 Encounter for screening mammogram for malignant neoplasm of breast (principal); Z13.820 Encounter for screening for osteoporosis; Z78.0 Asymptomatic menopausal state; R91.1 Solitary pulmonary nodule
CPT/HCPCS: 71250; 77063; 77067; 77080

== ENCOUNTER → 2025-06-07 14:10 | Outpatient (BNVA) | payer MEDICARE, OTHER, SELFPAY | PROVIDERS: PCP Nurse Practitioner; Visit Provider Student in an Organized Health Care Education/Training Program | DX: M25.561 Pain in right knee (principal); M25.562 Pain in left knee; M17.0 Bilateral primary osteoarthritis of knee | CPT/HCPCS: 73560; 73565; 99213 ==

== ENCOUNTER → 2025-06-27 14:29 | Outpatient (BNVA) | payer MEDICARE, OTHER, SELFPAY | PROVIDERS: PCP Nurse Practitioner; Visit Provider Physician Assistant | DX: M17.0 Bilateral primary osteoarthritis of knee (principal) | CPT/HCPCS: 20610; 99213; J7318 ==